=== PATIENT | female | born 1940 | race Caucasian/White ===

== ENCOUNTER 2018-05-09 14:13 | Inpatient (IN) | payer OTHER ==
[2018-05-09] MEDS ORDERED: IPRATROPIUM BROM 0.5MG/2.5ML ONE (15:04)
[2018-05-09] MEDS ORDERED: ALBUTEROL 2.5 MG/3 ML NEB SOL ONE (15:04)
--- NOTE | 2018-05-09 16:30 | RAD REPORT ---
EXAM DESCRIPTION: RAD - Chest Pa And Lat (2 Views) - 05/09/2018 4:06 pm CLINICAL HISTORY: Cough and congestion COMPARISON: August 2011 TECHNIQUE: PA and lateral views of the chest were obtained. FINDINGS: The lungs are fibrotic potentially masking early interstitial edema or infiltrate. Pleural effusion is present at the right base new from 2011. There is minimal posterior gutter diffusion on the left. Medial right base infiltrate or atelectasis present. Dialysis catheter is in place. Pacemak er is in place. Heart size is normal and central vasculature is within normal limits. No pneumotho rax. No acute bony finding noted. No aortic abnormality. IMPRESSION: Right base pleural effusion with infiltrate and/ or atelectasis. Minimal posterior gutter the fusion on the left. Chronic interstitial lung disease.
--- NOTE | 2018-05-09 17:10 | RAD REPORT ---
EXAM DESCRIPTION: CT - Thorax Wo Con - 05/09/2018 4:56 pm CLINICAL HISTORY: Persistent cough COMPARISON: Chest films same date, CT chest 2007 TECHNIQUE: Axial 5 mm thick images of the chest were obtained without IV contrast. All CT scans are performed using dose optimization technique as appropriate and may include automated exposure control or mA/KV adjustment according to patient size. FINDINGS: Right middle lobe airspace opacification is present suspicious for pneumonia rather than a telectasis. There is partial atelectasis of the right lower lobe. A few patchy airspace opacities are present in the superior aspect right lower lobe. Patient has a moderately large pleural effusion lay ering along the posterior aspect of the chest. No loculation. No left-sided pleural effusion. No pneu mothorax. No pleural based mass. No abnormal mediastinal or hilar masses or lymphadenopathy seen. No gross aortic or pulmonary artery finding suspected. Cardiomegaly is present with small pericardial effusion. No chest wall mass or abnormal axillary lymphadenopathy. IMPRESSION: Moderately large pleural effusion layering along the posterior aspect of the right hemit horax. No loculation. Partial atelectasis of the right lower lobe with minimal airspace opacification in the superior segme nt possibly pneumonia. Partial opacification of the right middle lobe favored to be pneumonia rather than atelectasis. Cardiomegaly with mild pericardial effusion.
[2018-05-09 17:33] LABS: Absolute Lymphocytes (CBC) 0.9 K/uL (0.7-4.9); Absolute Monocytes 0.4 K/uL (0.1-1.3); Absolute Neutrophil 3.9 K/uL (1.8-8.0); Basophils % 0.5 % (0-1.3); Eosinophils % 1.1 % (0-4.4); Lymphocytes % 17.3 % (15.3-44.8); MCH 32.4 pg (27.0-35.0); MCV 100.3 fL (80-100); MPV 9.6 fL (7.6-11.3); Monocytes % 7.8 % (3.3-12.3); RBC Red Blood Cell Count 3.69 M/uL (3.86-4.86)
[2018-05-09 17:36] LABS: Potassium 3.9 mmol/L (3.5-5.1)
--- NOTE | 2018-05-09 17:47 | ER ---
Nurse's Notes [facility] Name: Renée Souza Age: 78 yrs Sex: Female : 1940 Arrival Date: 05/09/2018 Time: 14:15 Bed 7 Private MD: Diagnosis: Lobar pneumonia, unspecified organism;Nosocomial condition Presentation: 05/09 14:37 Presenting complaint: Patient states: non-productive cough x 1 week, sent by [facility]ER. sv Transition of care: patient was not received from another setting of care. Onset of symptoms was May 02, 2018. Care prior to arrival: None. 14:37 Method Of Arrival: Wheelchair sv 14:37 Acuity: YUNIER 3 sv 14:50 Risk Assessment: Do you want to hurt yourself or someone else? Patient reports no tw2 desire to harm self or others. Initial Sepsis Screen: Does the patient meet any 2 criteria? No. Patient's initial sepsis screen is negative. Does the patient have a suspected source of infection? Yes: Productive cough/pneumonia. Historical: - Allergies: 14:39 Aspirin; sv 14:39 Morphine; sv 14:39 Keflex; sv 14:39 Codeine; sv 14:39 hydrocodone; sv 14:39 Levaquin; sv 14:39 PENICILLINS; sv - PMHx: 14:39 Diabetes - NIDDM; Atrial Fib; CKD; Peripheral venous insufficiency; Hypertension; sv Vascular dementia; CHF; Hyperlipidemia; - Immunization history:: Adult Immunizations up to date. - Social history:: Smoking status: Patient/guardian denies using tobacco. - Ebola Screening: : No symptoms or risks identified at this time. Screenin:50 Abuse screen: Denies threats or abuse. Nutritional screening: No deficits noted. tw2 Tuberculosis screening: No symptoms or risk factors identified. Fall Risk None identified. Assessment: 14:45 General: Appears in no apparent distress. Behavior is calm, cooperative, appropriate tw2 for age. Pain: Denies pain. Neuro: Level of Consciousness is awake, alert, obeys commands, Oriented to person, place, time, situation. Cardiovascular: Heart tones S1 S2 Patient's skin is warm and dry. Respiratory: Reports cough that is non-productive, Airway is patent Respiratory effort is even, unlabored, Respiratory pattern is regular, symmetrical, Breath sounds with wheezes bilaterally. GI: No signs and/or symptoms were reported involving the gastrointestinal system. Abdomen is round non-distended, Bowel sounds present X 4 quads. : No signs and/or symptoms were reported regarding the genitourinary system. EENT: No signs and/or symptoms were reported regarding the EENT system. Derm: No signs and/or symptoms reported regarding the dermatologic system. Musculoskeletal: Range of motion: intact in all extremities. 15:45 Reassessment: Patient appears in no apparent distress at this time. No changes from tw2 previously documented assessment. Patient and/or family updated on plan of care and expected duration. Pain level reassessed. 16:45 Reassessment: Patient appears in no apparent distress at this time. No changes from tw2 previously documented assessment. Patient and/or family updated on plan of care and expected duration. Pain level reassessed. 16:50 Reassessment: pts family request blood work, "while were here", provider notified. tw2 17:30 Reassessment: Patient appears in no apparent distress at this time. No changes from tw2 previously documented assessment. Patient and/or family updated on plan of care and expected duration. Pain level reassessed. 18:35 Reassessment: Patient appears in no apparent distress at this time. No changes from tw2 previously documented assessment. Patient and/or family updated on plan of care and expected duration. Pain level reassessed. 19:32 Reassessment: pt resting quietly A\\T\\O x 4, resp unlabored, awaiting room assignment bb family at bedside. 21:25 Reassessment: No changes from previously documented assessment. Patient and/or family tl1 updated on plan of care and expected duration. Pain level reassessed. report called and pt transferred to the floor. Vital Signs: 14:36 BP 148 / 64; Pulse 77; Resp 19; Temp 98.8; Pulse Ox 95% ; Weight 91.17 kg; Height 5 ft. sv 4 in. (162.56 cm); Pain 0/10; 15:45 BP 108 / 60; Pulse 77; Resp 17; Pulse Ox 100% on R/A; tw2 16:45 BP 162 / 64; Pulse 64; Resp 17; Pulse Ox 96% on 3 lpm NC; tw2 17:30 BP 179 / 68; Pulse 70; Resp 16; Pulse Ox 96% on 3 lpm NC; tw2 18:34 BP 169 / 60; Pulse 70; Resp 17; Pulse Ox 96% on 3 lpm NC; tw2 19:33 BP 142 / 63; Pulse 77; Resp 18 S; Pulse Ox 93% on 2 lpm NC; bb 20:53 BP 154 / 58; Pulse 67; Resp 20; Pulse Ox 96% on 2 lpm NC; tl1 14:36 Body Mass Index 34.50 (91.17 kg, 162.56 cm) sv ED Course: 14:15 Patient arrived in ED. mr 14:37 Triage completed. sv 14:40 Arm band placed on. sv 14:42 José Keating MD is Attending Physician. gs 14:46 Nuha Zepeda RN is Primary Nurse. tw2 14:46 Bed in low position. Call light in reach. Adult w/ patient. laboratory monitor on. Pulse tw2 ox on. NIBP on. 15:03 Flu Sent. tw2 16:04 X-ray completed. Patient tolerated procedure well. Patient moved back from radiology. ml 16:07 XRAY Chest Pa And Lat (2 Views) In Process Unspecified. EDMS 16:[address] via stretcher. vm2 16:56 CT completed. Patient tolerated procedure well. Patient moved back from CT. vm2 16:57 CT Chest Wo Con In Process Unspecified. EDMS 17:07 Report given to AVA Bartholomew at this time. tw2 17:15 Missed attempt(s): 22 gauge in right antecubital area. Bleeding controlled, band aid tw2 applied, catheter tip intact. Missed attempt(s): 22 gauge in right wrist. Bleeding controlled, band aid applied, catheter tip intact. 17:45 Rio Interiano MD is Hospitalizing Provider. gs 17:50 Inserted saline lock: 22 gauge in left wrist, using aseptic technique. jb1 21:15 Repositioned patient. Cleaned of incontinence. tl1 21:26 Warm blanket given. tl1 21:27 No provider procedures requiring assistance completed. Patient admitted, IV remains in tl1 place. Administered Medications: 15:03 Drug: Albuterol 2.5 mg Route: Inhalation; tw2 16:00 Follow up: Response: No adverse reaction tw2 15:03 Drug: AtroVENT Aerosol 0.5 mg Route: Inhalation; tw2 16:00 Follow up: Response: No adverse reaction tw2 18:33 Drug: PriMAXin 500 mg Route: IV; Rate: bolus; Site: left hand; tw2 19:31 Follow up: IV Status: Completed infusion; IV Intake: 250ml bb Intake: 19:31 IV: 250ml; Total: 250ml. bb Outcome: 17:46 Decision to Hospitalize by Provider. gs 21:11 Admitted to Tele accompanied by tech, via stretcher, with oxygen, with chart, Report tl1 called to Saundra ESCALANTE 21:27 Condition: stable tl1 21:27 Instructed on the need for admit. 21:29 Patient left the ED. tl1 Signatures: Dispatcher [employer] EDMS Fran Jimenes jbAngelique Goldberg RN RN Marquita Baig Brenda RN RN Glo Berger Tonya RN AVA tl1 Nuha Zepeda RN RN tw2 Amanda Marin 2 José Keating MD MD Corrections: (The following items were deleted from the chart) 14:40 14:36 91.17 kg; Height 5 ft. 4 in.; BMI: 34.5; sv sv 18:35 16:45 BP 110 / 073; Pulse 87bpm; Resp 17bpm; Pulse Ox 100% RA; tw2 tw2
--- NOTE | 2018-05-09 17:47 | EDPHYS ---
Physician Documentation [facility] Name: Renée Souza Age: 78 yrs Sex: Female : 1940 Arrival Date: 05/09/2018 Time: 14:15 Bed 7 Private MD: ED Physician José Keating HPI: 05/09 18:37 This 78 yrs old Female presents to ER via Wheelchair with complaints of Cough.gs 18:37 The patient or guardian reports cough, that is intermittent. Onset: The gs symptoms/episode began/occurred 3 day(s) ago. Severity of symptoms: At their worst the symptoms were moderate, in the emergency department the symptoms are unchanged. Modifying factors: the symptoms are aggravated by nothing. Associated signs and symptoms: Pertinent positives: fever. The patient has not experienced similar symptoms in the past. The patient has been recently seen by a physician: the patient's primary care provider. Historical: - Allergies: 14:39 Aspirin; sv 14:39 Morphine; sv 14:39 Keflex; sv 14:39 Codeine; sv 14:39 hydrocodone; sv 14:39 Levaquin; sv 14:39 PENICILLINS; sv - PMHx: 14:39 Diabetes - NIDDM; Atrial Fib; CKD; Peripheral venous insufficiency; Hypertension; sv Vascular dementia; CHF; Hyperlipidemia; - Immunization history:: Adult Immunizations up to date. - Social history:: Smoking status: Patient/guardian denies using tobacco. - Ebola Screening: : No symptoms or risks identified at this time. ROS: 18:37 All other systems are negative. gs Exam: 18:37 Head/Face: Normocephalic, atraumatic. Eyes: Pupils equal round and reactive to light, gs extra-ocular motions intact. Lids and lashes normal. Conjunctiva and sclera are non-icteric and not injected. Cornea within normal limits. Periorbital areas with no swelling, redness, or edema. ENT: Nares patent. No nasal discharge, no septal abnormalities noted. Tympanic membranes are normal and external auditory canals are clear. Oropharynx with no redness, swelling, or masses, exudates, or evidence of obstruction, uvula midline. Mucous membranes moist. Neck: Trachea midline, no thyromegaly or masses palpated, and no cervical lymphadenopathy. Supple, full range of motion without nuchal rigidity, or vertebral point tenderness. No Meningismus. Chest/axilla: Normal chest wall appearance and motion. Nontender with no deformity. No lesions are appreciated. Cardiovascular: Regular rate and rhythm with a normal S1 and S2. No gallops, murmurs, or rubs. Normal PMI, no JVD. No pulse deficits. Abdomen/GI: Soft, non-tender, with normal bowel sounds. No distension or tympany. No guarding or rebound. No evidence of tenderness throughout. Back: No spinal tenderness. No costovertebral tenderness. Full range of motion. Skin: Warm, dry with normal turgor. Normal color with no rashes, no lesions, and no evidence of cellulitis. MS/ Extremity: Pulses equal, no cyanosis. Neurovascular intact. Full, normal range of motion. Neuro: Awake and alert, GCS 15, oriented to person, place, time, and situation. Cranial nerves II-XII grossly intact. Motor strength 5/5 in all extremities. Sensory grossly intact. Cerebellar exam normal. Normal gait. 18:37 Constitutional: The patient appears in no acute distress, alert, awake. 18:37 Respiratory: the patient does not display signs of respiratory distress, Respirations: normal, Breath sounds: rhonchi, that are moderate, are located in both bases. Vital Signs: 14:36 BP 148 / 64; Pulse 77; Resp 19; Temp 98.8; Pulse Ox 95% ; Weight 91.17 kg; Height 5 ft. sv 4 in. (162.56 cm); Pain 0/10; 15:45 BP 108 / 60; Pulse 77; Resp 17; Pulse Ox 100% on R/A; tw2 16:45 BP 162 / 64; Pulse 64; Resp 17; Pulse Ox 96% on 3 lpm NC; tw2 17:30 BP 179 / 68; Pulse 70; Resp 16; Pulse Ox 96% on 3 lpm NC; tw2 18:34 BP 169 / 60; Pulse 70; Resp 17; Pulse Ox 96% on 3 lpm NC; tw2 19:33 BP 142 / 63; Pulse 77; Resp 18 S; Pulse Ox 93% on 2 lpm NC; bb 20:53 BP 154 / 58; Pulse 67; Resp 20; Pulse Ox 96% on 2 lpm NC; tl1 14:36 Body Mass Index 34.50 (91.17 kg, 162.56 cm) sv MDM: 14:55 Patient medically screened. gs 18:37 Differential Diagnosis: Bronchitis Influenza Upper Respiratory Infection Pneumonia. Data reviewed: vital signs, nurses notes. Response to treatment: the patient's symptoms have mildly improved after treatment, and as a result, I will admit patient. 05/09 14:51 Order name: Flu; Complete Time: 15:34 05/09 16:55 Order name: CBC with Diff; Complete Time: 17:38 05/09 16:55 Order name: Basic Metabolic Panel; Complete Time: 17:38 05/09 16:55 Order name: Blood Culture* 05/09 20:18 Order name: CBC with Automated Diff EDMS 05/09 20:18 Order name: CBC with Automated Diff EDMS 05/09 14:51 Order name: XRAY Chest Pa And Lat (2 Views); Complete Time: 16:41 05/09 16:42 Order name: CT Chest Wo Con; Complete Time: 17:24 05/09 20:18 Order name: CBC with Automated Diff EDMS 05/09 20:18 Order name: CBC with Automated Diff EDMS 05/09 20:18 Order name: Comprehensive Metabolic Panel EDMS 05/09 20:19 Order name: Comprehensive Metabolic Panel EDMS 05/09 20:19 Order name: Comprehensive Metabolic Panel EDMS 05/09 20:19 Order name: Comprehensive Metabolic Panel EDMS 05/09 20:18 Order name: Renal EDMS Administered Medications: 15:03 Drug: Albuterol 2.5 mg Route: Inhalation; tw2 16:00 Follow up: Response: No adverse reaction tw2 15:03 Drug: AtroVENT Aerosol 0.5 mg Route: Inhalation; tw2 16:00 Follow up: Response: No adverse reaction tw2 18:33 Drug: PriMAXin 500 mg Route: IV; Rate: bolus; Site: left hand; tw2 19:31 Follow up: IV Status: Completed infusion; IV Intake: 250ml bb Disposition: 05/09/18 17:46 Hospitalization ordered by Rio Interiano for Inpatient Admission. Preliminary diagnosis are Lobar pneumonia, unspecified organism, Nosocomial condition. - Bed requested for Telemetry/MedSurg (Inpatient). - Status is Inpatient Admission. tl1 - Condition is Stable. - Problem is new. - Symptoms are unchanged. UTI on Admission? No Critical care time excluding procedures: 18:37 Critical care time: Bedside Care: 10 minutes, Consultation: 10 minutes, Family gs Intervention: 10 minutes. Total time: 30 minutes Signatures: Dispatcher [employer] Angelique Marquez, RN AVA Jolly Dodson RN RN tl1 Danna Boone RN RN Nuha Zepeda RN RN tw2 José Keating MD MD [place] Marcos RN bb Corrections: (The following items were deleted from the chart) 20:24 17:46 Hospitalization Ordered by Rio Interiano MD for Inpatient Admission. Preliminary cg diagnosis is Lobar pneumonia, unspecified organism; Nosocomial condition. Bed requested for Telemetry/MedSurg (Inpatient). Status is Inpatient Admission. Condition is Stable. Problem is new. Symptoms are unchanged. UTI on Admission? No. gs 21:29 20:24 05/09/2018 17:46 Hospitalization Ordered by Rio Interiano MD for Inpatient tl1 Admission. Preliminary diagnosis is Lobar pneumonia, unspecified organism; Nosocomial condition. Bed requested for Telemetry/MedSurg (Inpatient). Status is Inpatient Admission. Condition is Stable. Problem is new. Symptoms are unchanged. UTI on Admission? No. cg
[2018-05-09] MEDS ORDERED: Meropenem 1,000 MG in NA CHLORIDE 0.9% 100 ML IV ONE (19:00)
[2018-05-09] MEDS ORDERED: ONDANSETRON 4 MG/2 ML VIAL IV PRN (20:16)
[2018-05-09] MEDS ORDERED: ACETAMINOPHEN 500 MG TAB PO PRN (20:16)
[2018-05-09 22:19] VITALS: BMI 29.7
[2018-05-09 23:44] LABS: Urine Appearance CLOUDY; Urine Bilirubin NEGATIVE (NEG); Urine Blood 1+ (NEG); Urine Color YELLOW; Urine Glucose 1+ (NEG); Urine Protein 3+ (NEG); Urine Specific Gravity 1.025 (1.005-1.030); Urine Urobilinogen 0.2 mg/dL (0.2-1.0)
[2018-05-09 23:47] LABS: Urine Microscopic Reflex ORDER UMIC
[2018-05-10] LABS: Urine Bacteria >50 /HPF (<20)
[2018-05-10 00:01] LABS: Urine Culture Reflex Order REFLEXED
[2018-05-10] MEDS ORDERED: GLIMEPIRIDE 2 MG TABLET PO PRN (00:38)
[2018-05-10] MEDS ORDERED: HYDRALAZINE HCL 10 MG TABLET PO ONE (01:20)
[2018-05-10 06:42] LABS: Absolute Lymphocytes (CBC) 0.9 K/uL (0.7-4.9); Absolute Monocytes 0.4 K/uL (0.1-1.3); Basophils % 0.4 % (0-1.3); Eosinophils % 1.2 % (0-4.4); Hematocrit 34.7 % (36.0-45.0); Lymphocytes % 16.6 % (15.3-44.8); MCH 32.5 pg (27.0-35.0); MPV 9.5 fL (7.6-11.3); Monocytes % 8.1 % (3.3-12.3)
[2018-05-10 06:53] LABS: Protime INR 1.07
[2018-05-10 07:01] LABS: Bilirubin Total 0.3 mg/dL (0.2-1.0); Magnesium 2.4 mg/dL (1.8-2.4); Phosphorus 5.4 mg/dL (2.5-4.9); Potassium 4.6 mmol/L (3.5-5.1); Protein, Total 6.9 g/dL (6.4-8.2)
[2018-05-10] MEDS ORDERED: INFLUENZA VACCINE (for 3y+) 0.5 ML DOSE IMVAC ONE (08:00)
[2018-05-10] MEDS ORDERED: PNEUMOCOCCAL VACCINE 0.5 ML IMVAC ONE (08:00)
[2018-05-10] MEDS ORDERED: LISINOPRIL 20 MG TAB PO SCH (09:00)
[2018-05-10] MEDS ORDERED: LISINOPRIL 10 MG TAB PO SCH (09:00)
--- NOTE | 2018-05-10 09:19 | P.HP ---
Certification for Inpatient Patient admitted to: Inpatient With expected LOS: >2 Midnights Patient will require the following post-hospital care: None Practitioner: I am a practitioner with admitting privileges, knowledge of patient current condition, hospital course, and medical plan of care. Services: Services provided to patient in accordance with Admission requirements found in Title 42 Section 412.3 of the Code of Federal Regulations Patient History Date of Service: 05/09/18 Reason for admission: Pneumonia/shortness of breath History of Present Illness: Patient is a 78-year-old female came into the hospital with coughing congestion. Patient's symptoms been going on for the last few days and she is gradually getting worse. Patient had fever shakes and chills. Patient came into the hospital for further workup. In the emergency room her workup revealed she had a large right lobar pneumonia along with large pleural effusion. Patient will be admitted to the hospital for further workup. Allergies Penicillins Adverse Reaction (Intermediate, Verified 09/01/11 18:18) Hives aspirin Adverse Reaction (Mild, Verified 09/01/11 18:20) Itching codeine [Codeine] Adverse Reaction (Mild, Verified 09/01/11 18:20) Nausea/Vomiting hydrocodone [Hydrocodone] Adverse Reaction (Mild, Verified 09/01/11 18:19) Rash levofloxacin [From Levaquin] Adverse Reaction (Mild, Verified 09/01/11 18:19) Itching Home Medications: Cholecalciferol (Vitamin D3) [Vitamin D] 5,000 unit PO SEECOM 09/02/11 Glimepiride [Amaryl*] 5 mg PO BIDP PRN 09/02/11 Insulin 70/30 NPH/Reg Human [Novolin 70/30*] 15 unit SQ BREAKFAST 09/02/11 Insulin 70/30 NPH/Reg Human [Novolin 70/30*] 15 unit SQ SUPPER 09/02/11 Lisinopril 10 mg PO DAILY 09/02/11 Simvastatin 20 mg PO DAILY 09/02/11 Warfarin Sodium [Coumadin] 10 mg PO SEECOM 09/02/11 Warfarin Sodium [Coumadin] 11 mg PO SEECOM 09/02/11 Hydralazine HCl 10 mg PO TID #0 tablet 09/03/11 Lisinopril 20 mg PO BID #0 tablet 09/03/11 - Past Medical/Surgical History Has patient received pneumonia vaccine in the past: No Diabetic: Yes -: Type 2 diabetes -: Atrial fibrillation -: Chronic Kidney Disease -: Hemodialysis TThS -: Peripheral Venous Insufficiency -: HTN -: Vascular Dementia -: CHF -: Hyperlipidemia -: Fistula - Family History Father Family History: Reviewed- Non-Contributory - Social History Smoking Status: Former smoker Alcohol use: No CD- Drugs: No Caffeine use: Yes Place of Residence: Home Review of Systems 10-point ROS is otherwise unremarkable Physical Examination - Vital Signs Temperature: 98.2 F Blood Pressure: 167/85 Pulse: 87 Respirations: 20 Pulse Ox (%): 91 - Physical Exam General: Alert, In no apparent distress, Oriented x3 HEENT: Atraumatic, PERRLA, Mucous membr. moist/pink, EOMI, Sclerae nonicteric Neck: Supple, 2+ carotid pulse no bruit, No LAD, Without JVD or thyroid abnormality Respiratory: Diminished, Crackles/rales, Rhonchi/gurgles Cardiovascular: Regular rate/rhythm, Normal S1 S2, No murmurs Gastrointestinal: Normal bowel sounds, Soft and benign, Non-distended, No tenderness Musculoskeletal: No clubbing, No swelling, No tenderness Integumentary: No rashes Neurological: Normal speech, Normal tone, Sensation intact, Cranial nerves 3-12 intact, Normal affect, Abnormal gait, Abnormal strength Lymphatics: No axilla or inguinal lymphadenopathy - Studies Laboratory Data (last 24 hrs) 05/09/18 17:10: Sodium 139, Potassium 3.9, BUN 22 H, Creatinine 3.20 H, Glucose 190 H 05/09/18 17:10: WBC 5.3, Hgb 12.0, Hct 37.0, Plt Count 196 Microbiology Data (last 24 hrs): 05/09/18 15:00 Nasopharnyx Influenza Type A Antigen Screen - Final 05/09/18 15:00 Nasopharnyx Influenza Type B Antigen Screen - Final Assessment & Plan - Problems (Diagnosis) (1) Pleural effusion, right Current Visit: Yes Status: Acute (2) Pneumonia Current Visit: Yes Status: Acute (3) CHF (congestive heart failure) Current Visit: Yes Status: Acute (4) End stage renal disease Current Visit: Yes Status: Acute (5) PNA (pneumonia) Current Visit: Yes Status: Acute (6) UTI (urinary tract infection) Current Visit: Yes Status: Acute - Plan 1. Continue with IV antibiotics 2. Awaiting culture results 3. Repeat chest x-ray 4. Will proceed with CT scan of the chest 5. Nephrology consultation/interventional radiology/ultrasound-guided thoracentesis 6. Continue with nebs as needed 7. O2 per protocol 8. Continue with gentle hydration 9. Repeat labs including CBC and renal function in a.m. 10. GI and DVT prophylaxis Discharge Plan: Home Plan to discharge in: Greater than 2 days - Advance Directives Does patient have a Living Will: No Does patient have a Durable POA for Healthcare: No - Code Status/Comfort Care Code Status Assessed: Yes Code Status: Full Code Critical Care: No Time Spent Managing PTS Care (In Minutes): 50
[2018-05-10] MEDS: INSULIN 70/30 100 UNITS/ML SQ SCH ×2 (09:28→16:53)
[2018-05-10] MEDS: HYDRALAZINE HCL 10 MG TABLET PO SCH ×3 (09:29→21:14)
--- NOTE | 2018-05-10 10:56 | RAD REPORT ---
EXAM DESCRIPTION: US - Renal Ultrasound-Complete - 05/10/2018 10:35 am CLINICAL HISTORY: . Acute renal insufficiency and chronic renal disease COMPARISON: 2009 FINDINGS: The right kidney measures cm with a normal echotexture. A 3 centimeters cyst is present. The left kidney measures 9 cm with a normal echotexture. Hydronephrosis is not seen. The bladder was not visualized IMPRESSION: 3 centimeter right renal cyst
[2018-05-10] MEDS ORDERED: NA CHLORIDE 0.9% 1,000 ML IV SCH (11:00)
[2018-05-10 11:53] LABS: Folic Acid, (Folate) 13.1 ng/mL (3.1-17.5); Potassium 4.8 mmol/L (3.5-5.1)
--- NOTE | 2018-05-10 13:47 | RAD REPORT ---
EXAM DESCRIPTION: US - Chest - 05/10/2018 1:13 pm CLINICAL HISTORY: Right pleural effusion COMPARISON: CT chest May 09 FINDINGS: Ultrasound of the chest was performed in anticipation of a ultrasound-guided thoracentesis . Preliminary imaging showed a large right-sided pleural effusion. At the time of the preliminary scanning, the patient was uncertain about the procedure to be performe d. Patient is not rosanne consent and wanted to discuss the procedure and findings with the referring lucian kent. IMPRESSION: Large right pleural effusion is identified at sonography. No thoracentesis was performed. Patient would not rosanne consent until she was able to talk further wi th the referring physician.
[2018-05-10 14:58] LABS: Protein, Total 6.9 g/dL (6.4-8.2); Thyroid Stimulating Hormone 2.9 uIU/mL (0.360-3.740)
--- NOTE | 2018-05-10 15:48 | ECHO ---
HEIGHT: 5 ft 5 in WEIGHT: 179 lb 1.6 oz DATE OF STUDY: 05/10/[address]: Lianne Aponte MD 2-DIMENSIONAL: YES M.MODE: YES DOPPLER: YES COLOR FLOW: YES TDS: NO PORTABLE: NO DEFINITY: NO BUBBLE STUDY: NO DIAGNOSIS: CONGESTIVE HEART FAILURE CARDIAC HISTORY: CATHERIZATION: YES SURGERY: NO PROSTHETIC VALVE: NO PACEMAKER: YES MEASUREMENTS (cm) DIASTOLIC (NORMALS) SYSTOLIC (NORMALS) IVSd 1.3 (0.6-1.2) LA Diam 4.6 (1.9-4.0) LVEF 67% LVIDd 5.2 (3.5-5.7) LVIDs 3.3 (2.0-3.5) %FS 37% LVPWd 1.3 (0.6-1.2) Ao Diam 2.6 (2.0-3.7) 2 DIMENSIONAL ASSESSMENT: RIGHT ATRIUM: NORMAL LEFT ATRIUM: DILATED RIGHT VENTRICLE: PACEMAKER LEFT VENTRICLE: LEFT VENTRICULAR HYPERTROPHY TRICUSPID VALVE: NORMAL MITRAL VALVE: MITRAL ANNULAR CALCIFICATION PULMONIC VALVE: NORMAL AORTIC VALVE: STENOSIS PERICARDIAL EFFUSION: NONE AORTIC ROOT: NORMAL LEFT VENTRICULAR WALL MOTION: NORMAL DOPPLER/COLOR FLOW: MILD TRICUSPID REGURGITATION. ESTIMATED RIGHT VENTRICULAR SYSTOLIC PRESSURE 50-55mmHg. MODERATE PULMONARY HYPERTENSION. MODERATE AORTIC STENOSIS. PEAK/ MEAN GRADIENT 39/22. ESTIMATE AORTIC VALVE AREA 1.4 CENTIMETERS SQUARED. COMMENTS: NORMAL LEFT VENTRICULAR EJECTION FRACTION. DILATED LEFT ATRIUM. LEFT VENTRICULAR HYPERTROPHY. MITRAL ANNULAR CALCIFICATION. MODERATE AORTIC STENOSIS. MILD TRICUSPID REGURGITATION. MODERATE PULMONARY HYPERTENSION. PACEMAKER CATHETER IN RIGHT VENTRICLE. TECHNOLOGIST: Galilea RITCHIE
--- NOTE | 2018-05-10 16:33 | CON ---
Date of Consultation: 05/10/2018 NEPHROLOGY CONSULTATION Additional Consulting Physician: Dr. Interiano. Reason For Consultation: Elevated BUN, creatinine, hypertension, fluid management. History Of Present Illness: This is a pleasant 78-year-old female with significant past medical hist ory of diabetes complicated with neuropathy, hypertension, hyperlipidemia, chronic kidney disease, ba tariq creatinine back in October 2017 4.3, GFR of 10, hypertension, hyperlipidemia, the patient came to the hospital complaining from cough, shortness of breath, started all of a sudden, hyperlipidemia, th e patient came with shortness of breath, cough and started all of the sudden exacerbating, for that r velma brought to the hospital. Workup showed that she has pneumonia with the pleural effusion and el evation in the BUN and creatinine. For that reason, we have been consulted. Upon questioning the chery martines, according to her, she had been taking ibuprofen only once a week. She is not aware about any kidney problem, even though reviewing the record for the patient showing that elevation in BUN and cr eatinine. She has never seen a surg rn before. Past Medical History: Include: 1.Hypertension. 2.Diabetes. 3.AFib. 4.Again the patient has dementia, her history not reliable. Allergies: TO PENICILLIN, ASPIRIN, CODEINE, HYDROCODONE, LEVAQUIN. Home Medications: Include cholecalciferol, glimepiride, lisinopril, Coumadin, hydralazine, and lisin opril. Family History: Positive for diabetes and hypertension. Social History: Ex-smoker. Denied alcohol. Denied drug abuse. Review of Systems: Head and Neck: No red eye. No ear pain. GI: No nausea. No vomiting. : No polyuria. No dysuria. No hematuria. FLUID DESIGNER: No vaginal discharge. Respiratory: Has shortness of breath. Has chest tightness. Endocrine: No polydipsia. Skin: No rash. Neuro: Has neuropathy. Musculoskeletal: Has low back pain. Physical Examination: Vital Signs: When I saw the patient, blood pressure of 167/85, pulse of 87. Chest: Crackles, bilateral base. Heart: S1, S2. Systolic murmur. Abdomen: Soft, nontender. Extremities: Trace edema. Neuro: Alert, nonfocal. Laboratory Data: Sodium 144, potassium 4.6, bicarb 24, BUN 34, creatinine 4.3, GFR of 10, calcium of 8, phosphor 5.4, magnesium 2.4. WBC 5.4, H and H 11.1/34.7, and platelet 165. Assessment And Plan: 1.Chronic kidney disease, stage 5, progression to end stage. The patient will need to initiate on d ialysis. We will discuss with the patient and family regarding the dialysis and we will follow up. 2.Hypertension, controlled, optimal. We will utilize the blood pressure for more ultrafiltration an d diuresis. 3.Anemia of chronic kidney disease, stable on the presence of renal failure. Light chain disease ne eds to be ruled out. 4.I am going to go ahead and send for anemia workup. 5.Diabetes as by primary. 6.Pneumonia. Continue current antibiotic. We will adjust the dosage. We will follow up with the lucian cardona. 7.Hypertension, controlled, not optimal. We will follow up blood pressure after diuresis and we bailey l monitor. INGA Voice ID: [id number] Report ID: [id number]
--- NOTE | 2018-05-10 16:42 | P.PN ---
Subjective Date of Service: 05/10/18 Chief Complaint: Pneumonia/shortness of breath Patient seen and examined at bedside. No family at bedside. Chart reviewed and case discussed with nursing staff. Reports improved breathing. Only complaint is she is coughing up sputum, otherwise feeling better. Review of Systems As noted Physical Examination - Vital Signs Temperature: 98.5 F Blood Pressure: 170/73 Pulse: 81 Respirations: 20 Pulse Ox (%): 93 - Physical Exam General: Alert, In no apparent distress, Oriented x3 HEENT: Atraumatic, PERRLA, EOMI Neck: Supple, JVD not distended Respiratory: Dull, Expiratory wheezes Cardiovascular: Regular rate/rhythm, Normal S1 S2 Gastrointestinal: Normal bowel sounds, No tenderness Musculoskeletal: No tenderness Integumentary: No rashes Neurological: Normal speech, Normal tone, Normal affect - Studies Laboratory Data (last 24 hrs) 05/10/18 05:31: PT 12.6 H, INR 1.07 05/10/18 05:31: Sodium 144, Potassium 4.6, BUN 34 H, Creatinine 4.30 H D, Glucose 204 H, Phosphorus 5.4 H, Magnesium 2.4, Total Bilirubin 0.3, AST 28, ALT 29, Alkaline Phosphatase 108 05/10/18 05:31: WBC 5.4, Hgb 11.1 L, Hct 34.7 L, Plt Count 165 05/10/18 05:00: Phosphorus Cancelled, Magnesium Cancelled 05/09/18 17:10: Sodium 139, Potassium 3.9, BUN 22 H, Creatinine 3.20 H, Glucose 190 H 05/09/18 17:10: WBC 5.3, Hgb 12.0, Hct 37.0, Plt Count 196 Microbiology Data (last 24 hrs): 05/09/18 15:00 Nasopharnyx Influenza Type A Antigen Screen - Final 05/09/18 15:00 Nasopharnyx Influenza Type B Antigen Screen - Final Assessment And Plan - Plan This is a 78-year-old female with: Right pleural effusion Patient with a large right pleural effusion on CT scan. Ultrasound-guided thoracocentesis ordered, patient refused. I did speak to the patient, she is not really sure why she refused but she still refuses. No family at bedside to discuss further. We will see if family comes by tomorrow to speak with them. Pneumonia, right lower lobe Continue IV antibiotics Continue nebulizing treatments as needed O2 per protocol Congestive heart failure, diastolic, chronic Echocardiogram was done, ejection fraction of 67% with dilated left atria. Will continue home medications, Lasix as needed. End-stage renal disease Patient of Dr. cox, dialysis schedule on Tuesday, , Tuesday. Nephrology consulted, pending dialysis tomorrow per nephrology. Diabetes mellitus, type 2, insulin dependent. Continue Accu-Cheks and low-dose correction scale. Will adjust as needed. Atrial fibrillation. In sinus rhythm at this time. Continue home medications Pacemaker in place. Stable. Denies any palpitations, chest pain Vascular dementia Hyperlipidemia Continue home statin Hypertension Elevated, we started her home hydralazine. Lisinopril held secondary to renal function. Will continue to monitor, will order IV hydralazine if needed. DVT prophylaxis: Lovenox GI prophylaxis: Protonix Diet: Renal Disposition: Pending symptomatic improvement. Continue IV antibiotics. Physician Review: Patient Assessed, Agree with Above Assessment and Plan Time Spent Managing PTS Care (In Minutes): 35
[2018-05-10] MEDS: WARFARIN SODIUM 5 MG TAB PO SCH (16:53)
--- NOTE | 2018-05-10 20:59 | P.CNS ---
Date of Consult: 05/10/18 Reason for Consult: ESRD Requesting Physician: Rio Interiano Chief Complaint: Pneumonia/shortness of breath History of Present Illness: 78 yo WF CKD, HTN presented to the ER with several days of moderate, progressive malaise with associated cough and congestion. +Fatigue and weakness. No modifying fx. Known dialysis patient. Allergies Penicillins Adverse Reaction (Intermediate, Verified 09/01/11 18:18) Hives aspirin Adverse Reaction (Mild, Verified 09/01/11 18:20) Itching codeine [Codeine] Adverse Reaction (Mild, Verified 09/01/11 18:20) Nausea/Vomiting hydrocodone [Hydrocodone] Adverse Reaction (Mild, Verified 09/01/11 18:19) Rash levofloxacin [From Levaquin] Adverse Reaction (Mild, Verified 09/01/11 18:19) Itching Home medications list reviewed: Yes Home Medications: Cholecalciferol (Vitamin D3) [Vitamin D] 5,000 unit PO SEECOM 09/02/11 Glimepiride [Amaryl*] 5 mg PO BIDP PRN 09/02/11 Insulin 70/30 NPH/Reg Human [Novolin 70/30*] 15 unit SQ BREAKFAST 09/02/11 Insulin 70/30 NPH/Reg Human [Novolin 70/30*] 15 unit SQ SUPPER 09/02/11 Lisinopril 10 mg PO DAILY 09/02/11 Simvastatin 20 mg PO DAILY 09/02/11 Warfarin Sodium [Coumadin] 10 mg PO SEECOM 09/02/11 Warfarin Sodium [Coumadin] 11 mg PO SEECOM 09/02/11 Hydralazine HCl 10 mg PO TID #0 tablet 09/03/11 Lisinopril 20 mg PO BID #0 tablet 09/03/11 - Past Medical/Surgical History Diabetic: Yes -: Type 2 diabetes -: Atrial fibrillation -: Chronic Kidney Disease -: Hemodialysis TThS -: Peripheral Venous Insufficiency -: HTN -: Vascular Dementia -: CHF -: Hyperlipidemia -: Fistula - Family History Father Family History: Reviewed- Non-Contributory - Social History Smoking Status: Former smoker Alcohol use: No CD- Drugs: No Caffeine use: Yes Place of Residence: Home Review of Systems 10-point ROS is otherwise unremarkable General: Weakness, Malaise Respiratory: SOB with Excertion, Wheezing Cardiovascular: Edema Neurological: Weakness, Confusion Physical Examination Temp Pulse Resp BP Pulse Ox 98.5 F 81 20 170/73 H 93 05/10/18 16:53 05/10/18 16:53 05/10/18 16:53 05/10/18 16:53 05/10/18 16:53 General: Cooperative, Mild distress HEENT: Normocephalic Neck: Supple, JVD distended Respiratory: Expiratory wheezes Cardiovascular: Regular rate/rhythm, Edema Gastrointestinal: Soft and benign, Non-distended Musculoskeletal: No clubbing, No contractures Integumentary: No rashes, No cyanosis Neurological: Normal speech Laboratory Data (last 24 hrs) 05/10/18 05:31: PT 12.6 H, INR 1.07 05/10/18 05:31: Sodium 144, Potassium 4.6, BUN 34 H, Creatinine 4.30 H D, Glucose 204 H, Phosphorus 5.4 H, Magnesium 2.4, Total Bilirubin 0.3, AST 28, ALT 29, Alkaline Phosphatase 108 05/10/18 05:31: WBC 5.4, Hgb 11.1 L, Hct 34.7 L, Plt Count 165 05/10/18 05:00: Phosphorus Cancelled, Magnesium Cancelled Imagings Data: EXAM DESCRIPTION: CT - Thorax Wo Con - 05/09/2018 4:56 pm CLINICAL HISTORY: Persistent cough COMPARISON: Chest films same date, CT chest 2007 TECHNIQUE: Axial 5 mm thick images of the chest were obtained without IV contrast. All CT scans are performed using dose optimization technique as appropriate and may include automated exposure control or mA/KV adjustment according to patient size FINDINGS: Right middle lobe airspace opacification is present suspicious for pneumonia rather than atelectasis. There is partial atelectasis of the right lower lobe. A few patchy airspace opacities are present in the superior aspect right lower lobe. Patient has a moderately large pleural effusion layering along the posterior aspect of the chest. No loculation. No left-sided pleural effusion. No pneumothorax. No pleural based mass. No abnormal mediastinal or hilar masses or lymphadenopathy seen. No gross aortic or pulmonary artery finding suspected. Cardiomegaly is present with small pericardial effusion. No chest wall mass or abnormal axillary lymphadenopathy. IMPRESSION: Moderately large pleural effusion layering along the posterior aspect of the right hemithorax. No loculation. Partial atelectasis of the right lower lobe with minimal airspace opacification in the superior segment possibly pneumonia. Partial opacification of the right middle lobe favored to be pneumonia rather than atelectasis. Cardiomegaly with mild pericardial effusion. Conclusions/Impression: A/ ESRD on HD. DM II with CKD. HTN with CKD/ CHF. Diastolic CHF, chronic. Pulmonary HTN. AVS. Anemia in CKD. PER/ Secondary HyperPTH. Vascular Dementia. P/ Continue current POC and Medications. Agree with abx. Follow up cultures. Follow up with pleural fluid studies. Arrange for acute dialysis. Restart home medications as indicated. No NSAIDs. AM labs. Daily weight. Thank you kindly for the consultation.
[2018-05-10] MEDS ORDERED: MANNITOL 25% 12.5 GM/50 ML VIAL IV PRN (21:10)
[2018-05-10] MEDS ORDERED: HEPARIN 10,000 UNIT/10 ML VIAL IV PRN (21:10)
[2018-05-10] MEDS ORDERED: NA CHLORIDE 0.9% 1,000 ML IV PRN (21:10)
[2018-05-10] MEDS: ATORVASTATIN 10 MG TAB PO SCH (21:14)
[2018-05-10] MEDS ORDERED: EPOETIN ALFA 10,000 UNIT/ML VIAL IV SCH (21:15)
[2018-05-10] MEDS: DOXYCYCLINE 100 MG in NA CHLORIDE 0.9% 100 ML IVPB SCH (21:15)
[2018-05-10] MEDS ORDERED: ALBUMIN HUMAN 25% 50 ML IV SCH (22:00)
[2018-05-11 06:08] LABS: Absolute Lymphocytes (CBC) 1.4 K/uL (0.7-4.9); Absolute Monocytes 0.6 K/uL (0.1-1.3); Absolute Neutrophil 4.3 K/uL (1.8-8.0); Basophils % 0.6 % (0-1.3); Eosinophils % 1.1 % (0-4.4); Hematocrit 32.2 % (36.0-45.0); Lymphocytes % 21.9 % (15.3-44.8); MCH 32.9 pg (27.0-35.0); MCV 101.5 fL (80-100); MPV 9.5 fL (7.6-11.3); Monocytes % 8.8 % (3.3-12.3); RBC Red Blood Cell Count 3.17 M/uL (3.86-4.86)
[2018-05-11 07:08] LABS: Albumin 2.8 g/dL (3.4-5.0); Bilirubin Total 0.3 mg/dL (0.2-1.0); Ferritin 853.5 ng/mL (8-388); Folic Acid, (Folate) 13.6 ng/mL (3.1-17.5); Phosphorus 6.9 mg/dL (2.5-4.9); Potassium 4.9 mmol/L (3.5-5.1); Protein, Total 6.7 g/dL (6.4-8.2); Uric Acid 4.9 mg/dL (2.6-6.0)
[2018-05-11 08:36] LABS: Rheumatoid Factor NEG (NEG)
[2018-05-11] MEDS: HYDRALAZINE HCL 10 MG TABLET PO SCH ×3 (08:43→20:45)
[2018-05-11] MEDS: INSULIN 70/30 100 UNITS/ML SQ SCH ×2 (08:43→17:29)
[2018-05-11] MEDS: DOXYCYCLINE 100 MG in NA CHLORIDE 0.9% 100 ML IVPB SCH ×2 (09:08→20:45)
--- NOTE | 2018-05-11 12:10 | P.PN ---
Subjective Date of Service: 05/11/18 Chief Complaint: Pneumonia/shortness of breath Subjective: No new changes, No C/O voiced Patient seen and examined at bedside. Son at bedside. Chart reviewed and case discussed with nursing staff. She is still complaining of having breathing trouble. Review of Systems As noted Physical Examination - Vital Signs Temperature: 97.9 F Blood Pressure: 174/88 Pulse: 84 Respirations: 20 Pulse Ox (%): 89 - Physical Exam General: Alert, Mild distress HEENT: Atraumatic, PERRLA, EOMI Neck: Supple, JVD not distended Respiratory: Diminished, Crackles/rales, Expiratory wheezes Cardiovascular: Regular rate/rhythm, Normal S1 S2 Gastrointestinal: Normal bowel sounds, No tenderness Musculoskeletal: No tenderness Integumentary: No rashes Neurological: Normal speech, Normal tone, Normal affect Lymphatics: No axilla or inguinal lymphadenopathy Assessment And Plan - Plan This is a 78-year-old female with: Right pleural effusion Patient with a large right pleural effusion on CT scan. Ultrasound-guided thoracocentesis ordered, patient refused. I did speak to the patient, she is not really sure why she refused but she still refuses. No family at bedside to discuss further. Discussed with son at bedside today. He states that his sister and him are medical [id number] and would like everything done. Patient has been having increasing dementia and unable to make certain decisions as she forgets her medical issues. Thoracocentesis we ordered, the patient did receive Coumadin yesterday. Will hold Coumadin starting tomorrow as they cannot do the procedure until Tuesday. We will also hold heparin with dialysis at this time. Pneumonia, right lower lobe Continue IV antibiotics Continue nebulizing treatments as needed O2 per protocol Congestive heart failure, diastolic, chronic Echocardiogram was done, ejection fraction of 67% with dilated left atria. Will continue home medications, Lasix. End-stage renal disease Patient of Dr. Monson, dialysis schedule on Tuesday, , Tuesday. Nephrology consulted, pending dialysis today per nephrology. Diabetes mellitus, type 2, insulin dependent. Continue Accu-Cheks and low-dose correction scale. Will adjust as needed. Atrial fibrillation. Anticoagulation with Coumadin In sinus rhythm at this time. Continue home medications Pacemaker in place. Stable. Denies any palpitations, chest pain Vascular dementia Hyperlipidemia Continue home statin Hypertension Elevated, we started her home hydralazine. Lisinopril held secondary to renal function. Will continue to monitor, will order IV hydralazine if needed. DVT prophylaxis: On Coumadin GI prophylaxis: Protonix Diet: Renal Disposition: Pending symptomatic improvement. Continue IV antibiotics. Physician Review: Patient Assessed, Agree with Above Assessment and Plan Time Spent Managing PTS Care (In Minutes): 35
[2018-05-11] MEDS: WARFARIN SODIUM 5 MG TAB PO SCH (17:29)
[2018-05-11] MEDS: ATORVASTATIN 10 MG TAB PO SCH (20:45)
[2018-05-12 06:13] LABS: Absolute Lymphocytes (CBC) 1.4 K/uL (0.7-4.9); Absolute Monocytes 0.5 K/uL (0.1-1.3); Absolute Neutrophil 4.6 K/uL (1.8-8.0); Basophils % 0.3 % (0-1.3); Eosinophils % 1.1 % (0-4.4); Hematocrit 35.4 % (36.0-45.0); Lymphocytes % 21.4 % (15.3-44.8); MCH 32.7 pg (27.0-35.0); MCV 98.8 fL (80-100); MPV 9.4 fL (7.6-11.3); Monocytes % 7.9 % (3.3-12.3); RBC Red Blood Cell Count 3.58 M/uL (3.86-4.86)
[2018-05-12 06:28] LABS: Albumin 2.8 g/dL (3.4-5.0); Bilirubin Total 0.3 mg/dL (0.2-1.0); Phosphorus 4.5 mg/dL (2.5-4.9); Potassium 3.9 mmol/L (3.5-5.1); Protein, Total 6.7 g/dL (6.4-8.2)
[2018-05-12] MEDS: HYDRALAZINE HCL 10 MG TABLET PO SCH ×3 (08:48→20:48)
[2018-05-12] MEDS: INSULIN 70/30 100 UNITS/ML SQ SCH ×2 (08:48→16:41)
[2018-05-12] MEDS: DOXYCYCLINE 100 MG in NA CHLORIDE 0.9% 100 ML IVPB SCH ×2 (09:45→20:48)
--- NOTE | 2018-05-12 12:28 | P.PN ---
Subjective Date of Service: 05/12/18 Chief Complaint: Pneumonia/shortness of breath Subjective: No new changes, No C/O voiced Patient seen and examined at bedside. Son at bedside. Chart reviewed and case discussed with nursing staff. No concerns or complaints this morning. Patient sitting up in bed, without any acute distress Review of Systems As noted Physical Examination - Vital Signs Temperature: 97.1 F Blood Pressure: 165/74 Pulse: 84 Respirations: 18 Pulse Ox (%): 94 - Physical Exam General: Alert, In no apparent distress, Oriented x3 HEENT: Atraumatic, PERRLA, EOMI Neck: Supple, JVD not distended Respiratory: Diminished, Crackles/rales Cardiovascular: Regular rate/rhythm, Normal S1 S2 Gastrointestinal: Normal bowel sounds, No tenderness Musculoskeletal: No tenderness Integumentary: No rashes Neurological: Normal speech, Normal tone, Normal affect Lymphatics: No axilla or inguinal lymphadenopathy Assessment And Plan - Plan This is a 78-year-old female with: Right pleural effusion Patient with a large right pleural effusion on CT scan. Ultrasound-guided thoracocentesis ordered, patient refused. I did speak to the patient, she is not really sure why she refused but she still refuses. No family at bedside to discuss further. Discussed with son at bedside yesterday He states that his sister and him are medical [id number] and would like everything done. Patient has been having increasing dementia and unable to make certain decisions as she forgets her medical issues. Thoracocentesis was ordered, the patient did receive Coumadin yesterday. Will hold Coumadin starting today as they cannot do the procedure until Tuesday. We will also hold heparin with dialysis at this time. She is pending a ultrasound-guided thoracocentesis on Tuesday. Pneumonia, right lower lobe Continue IV antibiotics Continue nebulizing treatments as needed O2 per protocol Congestive heart failure, diastolic, chronic Echocardiogram was done, ejection fraction of 67% with dilated left atria. Will continue home medications, Lasix. End-stage renal disease Patient of Dr. Monson, dialysis schedule on Tuesday, , Tuesday. Nephrology consulted, pending dialysis today per nephrology. Diabetes mellitus, type 2, insulin dependent. Continue Accu-Cheks and low-dose correction scale. Will adjust as needed. Atrial fibrillation. Anticoagulation with Coumadin In sinus rhythm at this time. Continue home medications Pacemaker in place. Stable. Denies any palpitations, chest pain Vascular dementia Hyperlipidemia Continue home statin Hypertension Elevated, we started her home hydralazine. Lisinopril held secondary to renal function. Will continue to monitor, will order IV hydralazine if needed. DVT prophylaxis: On Coumadin GI prophylaxis: Protonix Diet: Renal Disposition: Pending symptomatic improvement. Continue IV antibiotics. Physician Review: Patient Assessed, Agree with Above Assessment and Plan Time Spent Managing PTS Care (In Minutes): 35
[2018-05-12] MEDS: ATORVASTATIN 10 MG TAB PO SCH (20:48)
--- NOTE | 2018-05-12 23:14 | P.PN ---
Date of Service: 05/12/18 Vital Signs Temp Pulse Resp BP Pulse Ox 97.4 F 92 H 16 145/63 H 93 05/12/18 20:00 05/12/18 20:00 05/12/18 20:00 05/12/18 20:00 05/12/18 20:00 Medications Acetaminophen (Tylenol -Extra Strength) 500 mg PO Q4HP PRN PRN Reason: [id number] Stop: 06/08/18 20:17 Last Admin: 05/12/18 05:31 Dose: 500 mg Atorvastatin Calcium (Lipitor) 10 mg PO BEDTIME [facility] Stop: 06/09/18 21:01 Last Admin: 05/12/18 20:48 Dose: 10 mg Cholecalciferol (Vitamin D 5,000 Iu Cap) 5,000 unit PO Mo@0900 [facility] Stop: 06/14/18 09:01 Epoetin Calin (Procrit) 10,000 unit IV EVERY HD [facility] Stop: 06/09/18 21:16 Last Admin: 05/11/18 11:55 Dose: 10,000 unit Heparin Sodium (Porcine) (Heparin 1,000 Units/Ml) 2,000 unit IV EVERY HD [facility] Stop: 05/16/18 10:01 Last Admin: 05/11/18 10:30 Dose: 2,000 unit Heparin Sodium (Porcine) (Heparin 1,000 Units/Ml) 6,000 unit IV EVERY HD PRN PRN Reason: FLUSH AFTER EACH USE Stop: 06/10/18 09:52 Hydralazine HCl (Apresoline) 10 mg PO TID [facility] Stop: 06/09/18 09:01 Last Admin: 05/12/18 20:48 Dose: 10 mg Doxycycline Hyclate 100 mg/ (Sodium Chloride) 100 mls @ 100 mls/hr IVPB Q12HR [facility]; Protocol Stop: 06/09/18 21:01 Last Admin: 05/12/18 20:48 Dose: 100 mls Albumin Human (Albumin 25%) 50 mls @ 100 mls/hr IV EVERY HD [facility] Stop: 06/09/18 22:01 Insulin Human Isoph/Insulin Regular (Novolin 70/30) 15 unit SQ BREAKFAST [facility] Stop: 06/09/18 08:01 Last Admin: 05/12/18 08:48 Dose: 15 units Insulin Human Isoph/Insulin Regular (Novolin 70/30) 15 unit SQ SUPPER [facility] Stop: 06/09/18 17:01 Last Admin: 05/12/18 16:41 Dose: 15 units Lisinopril (Prinivil) 20 mg PO BID [facility] Stop: 06/09/18 09:01 Mannitol (Mannitol 12.5 Gm/50 Ml Vial) 12.5 gm IV EVERY HD PRN PRN Reason: BP support at hemodialysis Stop: 06/09/18 21:11 Ondansetron HCl (Zofran) 4 mg IV Q6HP PRN PRN Reason: NAUSEA / VOMITING Stop: 06/08/18 20:17 Sodium Chloride (Normal Saline Flush) 10 ml IV BID [facility] Stop: 06/08/18 21:01 Last Admin: 05/12/18 20:48 Dose: 10 ml Warfarin Sodium (Coumadin) 10 mg PO DAILY 5 PM [facility] Stop: 06/09/18 17:01 Last Admin: 05/11/18 17:29 Dose: 10 mg Microbiology Results 05/09/18 23:25 Clean Catch Urine [place] Count - Preliminary BETWEEN 10,000 & 100,000 CFU/ML 05/09/18 23:25 Clean Catch Urine - Preliminary 05/09/18 17:30 Blood - Blood Aerobic Blood Culture - Preliminary No growth in 24 hours. 05/09/18 17:30 Blood - Blood Anaerobic Blood Culture - Preliminary No growth in 24 hours. 05/09/18 17:50 Blood - Blood Aerobic Blood Culture - Preliminary No growth in 24 hours. 05/09/18 17:50 Blood - Blood Anaerobic Blood Culture - Preliminary No growth in 24 hours. 05/09/18 15:00 Nasopharnyx Influenza Type A Antigen Screen - Final 05/09/18 15:00 Nasopharnyx Influenza Type B Antigen Screen - Final Assessment/ Plan: Nephrology. Feeling better today. +Weakness. CPS improved with CP or SOB. +MOLINA No acute events overnight. Vitals, medications, blood work and imaging reviewed in the chart. General: Cooperative, No distress HEENT: Normocephalic Neck: Supple, JVD distended Respiratory: CTA Cardiovascular: Regular rate/rhythm, Edema Gastrointestinal: Soft and benign, Non-distended Musculoskeletal: No clubbing, No contractures Integumentary: No rashes, No cyanosis Neurological: Normal speech Laboratory Data (last 24 hrs) 05/10/18 05:31: PT 12.6 H, INR 1.07 05/10/18 05:31: Sodium 144, Potassium 4.6, BUN 34 H, Creatinine 4.30 H D, Glucose 204 H, Phosphorus 5.4 H, Magnesium 2.4, Total Bilirubin 0.3, AST 28, ALT 29, Alkaline Phosphatase 108 05/10/18 05:31: WBC 5.4, Hgb 11.1 L, Hct 34.7 L, Plt Count 165 05/10/18 05:00: Phosphorus Cancelled, Magnesium Cancelled Imagings Data: EXAM DESCRIPTION: CT - Thorax Wo Con - 05/09/2018 4:56 pm CLINICAL HISTORY: Persistent cough COMPARISON: Chest films same date, CT chest 2007 TECHNIQUE: Axial 5 mm thick images of the chest were obtained without IV contrast. All CT scans are performed using dose optimization technique as appropriate and may include automated exposure control or mA/KV adjustment according to patient size FINDINGS: Right middle lobe airspace opacification is present suspicious for pneumonia rather than atelectasis. There is partial atelectasis of the right lower lobe. A few patchy airspace opacities are present in the superior aspect right lower lobe. Patient has a moderately large pleural effusion layering along the posterior aspect of the chest. No loculation. No left-sided pleural effusion. No pneumothorax. No pleural based mass. No abnormal mediastinal or hilar masses or lymphadenopathy seen. No gross aortic or pulmonary artery finding suspected. Cardiomegaly is present with small pericardial effusion. No chest wall mass or abnormal axillary lymphadenopathy. IMPRESSION: Moderately large pleural effusion layering along the posterior aspect of the right hemithorax. No loculation. Partial atelectasis of the right lower lobe with minimal airspace opacification in the superior segment possibly pneumonia. Partial opacification of the right middle lobe favored to be pneumonia rather than atelectasis. Cardiomegaly with mild pericardial effusion. Conclusions/Impression: A/ ESRD on HD. DM II with CKD. HTN with CKD/ CHF. Diastolic CHF, chronic. Pleural effusion. Pulmonary HTN. AVS. Anemia in CKD. PER/ Secondary HyperPTH. Vascular Dementia. P/ Continue current POC and Medications. Agree with abx. Follow up cultures. Follow up with pleural fluid studies. Acute dialysis tomorrow. No NSAIDs. AM labs. Daily weight.
[2018-05-13 05:44] LABS: Albumin 2.6 g/dL (3.4-5.0); Phosphorus 5.6 mg/dL (2.5-4.9); Potassium 3.7 mmol/L (3.5-5.1)
[2018-05-13] MEDS: INSULIN 70/30 100 UNITS/ML SQ SCH ×2 (09:24→17:10)
[2018-05-13] MEDS: DOXYCYCLINE 100 MG in NA CHLORIDE 0.9% 100 ML IVPB SCH ×2 (09:25→20:19)
[2018-05-13] MEDS: HYDRALAZINE HCL 10 MG TABLET PO SCH ×3 (09:25→20:18)
[2018-05-13] MEDS: BENZONATATE 100 MG CAP PO PRN (11:51)
--- NOTE | 2018-05-13 15:34 | RAD REPORT ---
EXAM DESCRIPTION: Onel Pa And Lat (2 Views)05/13/2018 3:18 pm CLINICAL HISTORY: Shortness of breath COMPARISON: May 09 FINDINGS: The right pleural effusion has decreased in size and appears relatively small. Small left pleural effusion is present. Upper lobes are clear. Heart is mildly enlarged. Pacemaker leads are in place. A central venous catheter is seen.
--- NOTE | 2018-05-13 16:31 | P.PN ---
Subjective Date of Service: 05/13/18 Chief Complaint: Pneumonia/shortness of breath Patient seen and examined at bedside. Son at bedside. Chart reviewed and case discussed with nursing staff. No concerns or complaints this morning. Patient sitting up in bed, without any acute distress Review of Systems Noted Physical Examination - Vital Signs Temperature: 97.1 F Blood Pressure: 154/70 Pulse: 99 Respirations: 18 Pulse Ox (%): 100 - Physical Exam General: Alert, In no apparent distress HEENT: Atraumatic, PERRLA, EOMI Neck: Supple, JVD not distended Respiratory: Normal air movement, Dull Cardiovascular: Regular rate/rhythm, Normal S1 S2 Gastrointestinal: Normal bowel sounds, No tenderness Musculoskeletal: No tenderness Integumentary: No rashes Neurological: Normal speech, Normal tone, Normal affect Lymphatics: No axilla or inguinal lymphadenopathy - Studies Microbiology Data (last 24 hrs): 05/09/18 23:25 Clean Catch Urine [place] Count - Final BETWEEN 10,000 & 100,000 CFU/ML 05/09/18 23:25 Clean Catch Urine - Final Enterococcus Faecalis Assessment And Plan - Plan This is a 78-year-old female with: Right pleural effusion: Right pleural effusion, decreased in size a repeat chest x-ray. Will see clinically if patient's still having symptoms prior to deciding if we still need to thoracocentesis. Patient with a large right pleural effusion on CT scan. Ultrasound-guided thoracocentesis ordered, patient refused. I did speak to the patient, she is not really sure why she refused but she still refuses. No family at bedside to discuss further. Discussed with son at bedside yesterday He states that his sister and him are medical [id number] and would like everything done. Patient has been having increasing dementia and unable to make certain decisions as she forgets her medical issues. Thoracocentesis was ordered, the patient did receive Coumadin yesterday. Will hold Coumadin starting today as they cannot do the procedure until Tuesday. We will also hold heparin with dialysis at this time. She is pending a ultrasound-guided thoracocentesis on Tuesday. Pneumonia, right lower lobe Continue IV antibiotics Continue nebulizing treatments as needed O2 per protocol Urinary tract infection, enterococcus faecalis Sensitive to tetracyclines Continue IV antibiotics Congestive heart failure, diastolic, chronic Echocardiogram was done, ejection fraction of 67% with dilated left atria. Will continue home medications, Lasix. End-stage renal disease Patient of Dr. Monson, dialysis schedule on Tuesday, , Tuesday. Nephrology consulted, recommendations appreciated Diabetes mellitus, type 2, insulin dependent. Continue Accu-Cheks and low-dose correction scale. Will adjust as needed. Atrial fibrillation. Anticoagulation with Coumadin In sinus rhythm at this time. Continue home medications Pacemaker in place. Stable. Denies any palpitations, chest pain Vascular dementia Hyperlipidemia Continue home statin Hypertension Elevated, we started her home hydralazine. Lisinopril held secondary to renal function. Will continue to monitor, will order IV hydralazine if needed. DVT prophylaxis: On Coumadin GI prophylaxis: Protonix Diet: Renal Disposition: Pending symptomatic improvement. Continue IV antibiotics. Physician Review: Patient Assessed, Agree with Above Assessment and Plan
[2018-05-13] MEDS: ATORVASTATIN 10 MG TAB PO SCH (20:18)
--- NOTE | 2018-05-13 20:45 | P.PN ---
Date of Service: 05/13/18 Vital Signs Temp Pulse Resp BP Pulse Ox 97.1 F 99 H 18 154/70 H 100 05/13/18 16:31 05/13/18 16:31 05/13/18 16:31 05/13/18 16:31 05/13/18 16:31 Medications Acetaminophen (Tylenol -Extra Strength) 500 mg PO Q4HP PRN PRN Reason: [id number] Stop: 06/08/18 20:17 Last Admin: 05/12/18 05:31 Dose: 500 mg Atorvastatin Calcium (Lipitor) 10 mg PO BEDTIME CHUYIAT Stop: 06/09/18 21:01 Last Admin: 05/13/18 20:18 Dose: 10 mg Benzonatate (Tessalon Perle) 100 mg PO TIDP PRN PRN Reason: COUGH Stop: 06/12/18 11:46 Last Admin: 05/13/18 11:51 Dose: 100 mg Cholecalciferol (Vitamin D 5,000 Iu Cap) 5,000 unit PO Mo@0900 [facility] Stop: 06/14/18 09:01 Epoetin Calin (Procrit) 10,000 unit IV EVERY HD [facility] Stop: 06/09/18 21:16 Last Admin: 05/11/18 11:55 Dose: 10,000 unit Heparin Sodium (Porcine) (Heparin 1,000 Units/Ml) 2,000 unit IV EVERY HD [facility] Stop: 05/16/18 10:01 Last Admin: 05/11/18 10:30 Dose: 2,000 unit Heparin Sodium (Porcine) (Heparin 1,000 Units/Ml) 6,000 unit IV EVERY HD PRN PRN Reason: FLUSH AFTER EACH USE Stop: 06/10/18 09:52 Hydralazine HCl (Apresoline) 10 mg PO TID [facility] Stop: 06/09/18 09:01 Last Admin: 05/13/18 20:18 Dose: 10 mg Doxycycline Hyclate 100 mg/ (Sodium Chloride) 100 mls @ 100 mls/hr IVPB Q12HR [facility]; Protocol Stop: 06/09/18 21:01 Last Admin: 05/13/18 20:19 Dose: 100 mls Albumin Human (Albumin 25%) 50 mls @ 100 mls/hr IV EVERY HD [facility] Stop: 06/09/18 22:01 Insulin Human Isoph/Insulin Regular (Novolin 70/30) 15 unit SQ BREAKFAST [facility] Stop: 06/09/18 08:01 Last Admin: 05/13/18 09:24 Dose: 15 units Insulin Human Isoph/Insulin Regular (Novolin 70/30) 15 unit SQ SUPPER [facility] Stop: 06/09/18 17:01 Last Admin: 05/13/18 17:10 Dose: 15 units Lisinopril (Prinivil) 20 mg PO BID [facility] Stop: 06/09/18 09:01 Mannitol (Mannitol 12.5 Gm/50 Ml Vial) 12.5 gm IV EVERY HD PRN PRN Reason: BP support at hemodialysis Stop: 06/09/18 21:11 Ondansetron HCl (Zofran) 4 mg IV Q6HP PRN PRN Reason: NAUSEA / VOMITING Stop: 06/08/18 20:17 Sodium Chloride (Normal Saline Flush) 10 ml IV BID [facility] Stop: 06/08/18 21:01 Last Admin: 05/13/18 20:19 Dose: 10 ml Warfarin Sodium (Coumadin) 10 mg PO DAILY 5 PM [facility] Stop: 06/09/18 17:01 Last Admin: 05/11/18 17:29 Dose: 10 mg Microbiology Results 05/09/18 23:25 Clean Catch Urine [place] Count - Final BETWEEN 10,000 & 100,000 CFU/ML 05/09/18 23:25 Clean Catch Urine - Final Enterococcus Faecalis 05/09/18 17:30 Blood - Blood Aerobic Blood Culture - Preliminary No growth in 24 hours. 05/09/18 17:30 Blood - Blood Anaerobic Blood Culture - Preliminary No growth in 24 hours. 05/09/18 17:50 Blood - Blood Aerobic Blood Culture - Preliminary No growth in 24 hours. 05/09/18 17:50 Blood - Blood Anaerobic Blood Culture - Preliminary No growth in 24 hours. 05/09/18 15:00 Nasopharnyx Influenza Type A Antigen Screen - Final 05/09/18 15:00 Nasopharnyx Influenza Type B Antigen Screen - Final Assessment/ Plan: Nephrology. Feeling better today. +Weakness. CPS improved with CP or SOB. +MOLINA No acute events overnight. Vitals, medications, blood work and imaging reviewed in the chart. General: Cooperative, No distress HEENT: Normocephalic Neck: Supple, JVD distended Respiratory: CTA Cardiovascular: Regular rate/rhythm, Edema Gastrointestinal: Soft and benign, Non-distended Musculoskeletal: No clubbing, No contractures Integumentary: No rashes, No cyanosis Neurological: Normal speech Laboratory Data (last 24 hrs) 05/10/18 05:31: PT 12.6 H, INR 1.07 05/10/18 05:31: Sodium 144, Potassium 4.6, BUN 34 H, Creatinine 4.30 H D, Glucose 204 H, Phosphorus 5.4 H, Magnesium 2.4, Total Bilirubin 0.3, AST 28, ALT 29, Alkaline Phosphatase 108 05/10/18 05:31: WBC 5.4, Hgb 11.1 L, Hct 34.7 L, Plt Count 165 05/10/18 05:00: Phosphorus Cancelled, Magnesium Cancelled Imagings Data: EXAM DESCRIPTION: CT - Thorax Wo Con - 05/09/2018 4:56 pm CLINICAL HISTORY: Persistent cough COMPARISON: Chest films same date, CT chest 2007 TECHNIQUE: Axial 5 mm thick images of the chest were obtained without IV contrast. All CT scans are performed using dose optimization technique as appropriate and may include automated exposure control or mA/KV adjustment according to patient size FINDINGS: Right middle lobe airspace opacification is present suspicious for pneumonia rather than atelectasis. There is partial atelectasis of the right lower lobe. A few patchy airspace opacities are present in the superior aspect right lower lobe. Patient has a moderately large pleural effusion layering along the posterior aspect of the chest. No loculation. No left-sided pleural effusion. No pneumothorax. No pleural based mass. No abnormal mediastinal or hilar masses or lymphadenopathy seen. No gross aortic or pulmonary artery finding suspected. Cardiomegaly is present with small pericardial effusion. No chest wall mass or abnormal axillary lymphadenopathy. IMPRESSION: Moderately large pleural effusion layering along the posterior aspect of the right hemithorax. No loculation. Partial atelectasis of the right lower lobe with minimal airspace opacification in the superior segment possibly pneumonia. Partial opacification of the right middle lobe favored to be pneumonia rather than atelectasis. Cardiomegaly with mild pericardial effusion. Conclusions/Impression: A/ ESRD on HD. DM II with CKD. HTN with CKD/ CHF. Diastolic CHF, chronic. Pleural effusion. Pulmonary HTN. AVS. Anemia in CKD. PER/ Secondary HyperPTH. Vascular Dementia. P/ Continue current POC and Medications. Agree with abx. Follow up cultures. Thoracentesis on Tuesday. Seen and examined on HD today. No NSAIDs. AM labs. Daily weight.
[2018-05-13 21:32] LABS: Hepatitis C Virus RNA (PCR)log <1.18 log IU/mL
[2018-05-14 05:21] LABS: Albumin 2.9 g/dL (3.4-5.0); Potassium 3.7 mmol/L (3.5-5.1)
[2018-05-14] MEDS: DOXYCYCLINE 100 MG in NA CHLORIDE 0.9% 100 ML IVPB SCH ×2 (09:32→20:45)
[2018-05-14] MEDS: INSULIN 70/30 100 UNITS/ML SQ SCH ×2 (09:32→16:18)
[2018-05-14] MEDS: HYDRALAZINE HCL 10 MG TABLET PO SCH ×3 (09:32→20:45)
[2018-05-14] MEDS: BENZONATATE 100 MG CAP PO PRN (09:33)
--- NOTE | 2018-05-14 11:39 | P.PN ---
Subjective Date of Service: 05/14/18 Chief Complaint: Pneumonia/shortness of breath Subjective: No new changes, No C/O voiced, Improving Patient seen and examined at bedside. Son at bedside. Chart reviewed and case discussed with nursing staff. No concerns or complaints this morning. Patient sitting up in bed, without any acute distress Review of Systems As noted Physical Examination - Vital Signs Temperature: 97.8 F Blood Pressure: 135/60 Pulse: 85 Respirations: 18 Pulse Ox (%): 95 - Physical Exam General: Alert, In no apparent distress, Confused (Though at baseline) HEENT: Atraumatic, PERRLA, EOMI Neck: Supple, JVD not distended Respiratory: Clear to auscultation bilaterally, Normal air movement Cardiovascular: Regular rate/rhythm, Normal S1 S2 Gastrointestinal: Normal bowel sounds, No tenderness Musculoskeletal: No tenderness Integumentary: No rashes Neurological: Normal speech, Normal tone, Normal affect Lymphatics: No axilla or inguinal lymphadenopathy - Studies Microbiology Data (last 24 hrs): 05/09/18 23:25 Clean Catch Urine [place] Count - Final BETWEEN 10,000 & 100,000 CFU/ML 05/09/18 23:25 Clean Catch Urine - Final Enterococcus Faecalis Assessment And Plan - Plan This is a 78-year-old female with: Right pleural effusion: Right pleural effusion, decreased in size a repeat chest x-ray. Will see clinically if patient's still having symptoms prior to deciding if we still need to thoracocentesis. Patient with a large right pleural effusion on CT scan. Ultrasound-guided thoracocentesis ordered, patient refused. I did speak to the patient, she is not really sure why she refused but she still refuses. No family at bedside to discuss further. Discussed with son at bedside yesterday He states that his sister and him are medical [id number] and would like everything done. Patient has been having increasing dementia and unable to make certain decisions as she forgets her medical issues. Thoracocentesis was ordered, the patient did receive Coumadin yesterday. Will hold Coumadin starting today as they cannot do the procedure until Tuesday. We will also hold heparin with dialysis at this time. She is pending a ultrasound-guided thoracocentesis on Tuesday. Pneumonia, right lower lobe Continue IV antibiotics Continue nebulizing treatments as needed O2 per protocol Urinary tract infection, enterococcus faecalis Sensitive to tetracyclines Continue IV antibiotics Congestive heart failure, diastolic, chronic Echocardiogram was done, ejection fraction of 67% with dilated left atria. Will continue home medications, Lasix. End-stage renal disease Patient of Dr. Monson, dialysis schedule on Tuesday, , Tuesday. Nephrology consulted, recommendations appreciated Diabetes mellitus, type 2, insulin dependent. Continue Accu-Cheks and low-dose correction scale. Will adjust as needed. Atrial fibrillation. Anticoagulation with Coumadin In sinus rhythm at this time. Continue home medications Pacemaker in place. Stable. Denies any palpitations, chest pain Vascular dementia Hyperlipidemia Continue home statin Hypertension Elevated, we started her home hydralazine. Lisinopril held secondary to renal function. Will continue to monitor, will order IV hydralazine if needed. DVT prophylaxis: On Coumadin GI prophylaxis: Protonix Diet: Renal Disposition: Pending symptomatic improvement. Continue IV antibiotics. Physician Review: Patient Assessed, Agree with Above Assessment and Plan
[2018-05-14] MEDS: ATORVASTATIN 10 MG TAB PO SCH (20:45)
[2018-05-15 06:04] LABS: Absolute Lymphocytes (CBC) 1.4 K/uL (0.7-4.9); Absolute Monocytes 0.4 K/uL (0.1-1.3); Absolute Neutrophil 3.1 K/uL (1.8-8.0); Basophils % 0.6 % (0-1.3); Eosinophils % 2.9 % (0-4.4); Lymphocytes % 27.1 % (15.3-44.8); MCV 98.3 fL (80-100); Monocytes % 7.9 % (3.3-12.3); RBC Red Blood Cell Count 3.67 M/uL (3.86-4.86)
[2018-05-15 06:45] LABS: Albumin 2.8 g/dL (3.4-5.0); Bilirubin Total 0.3 mg/dL (0.2-1.0); Phosphorus 5.4 mg/dL (2.5-4.9); Potassium 3.7 mmol/L (3.5-5.1); Protein, Total 6.5 g/dL (6.4-8.2)
[2018-05-15] MEDS: INSULIN 70/30 100 UNITS/ML SQ SCH (08:44)
[2018-05-15] MEDS ORDERED: VITAMIN D 5,000 UNIT CAP PO SCH (09:00)
[2018-05-15] MEDS: DOXYCYCLINE 100 MG in NA CHLORIDE 0.9% 100 ML IVPB SCH (10:30)
[2018-05-15] MEDS: HYDRALAZINE HCL 10 MG TABLET PO SCH ×2 (10:30→14:18)
--- NOTE | 2018-05-15 11:13 | RAD REPORT ---
EXAM DESCRIPTION: US - Chest - 05/15/2018 11:07 am CLINICAL HISTORY: Right pleural effusion COMPARISON: Two view chest May 13, CT chest May 09 FINDINGS: Patient was received from the for for ultrasound-guided thoracentesis. Preliminary imaging was performed and showed very little pleural effusion either lung base. Pleural fluid volume has sub stantially reduced from the May 09 CT imaging. The minimal quantity of pleural fluid remaining is a non drainable quantity. IMPRESSION: Patient's right-sided pleural effusions seen May 09 has substantially reduced in vol ume. Patient no longer has a drainable quantity of pleural fluid on the right.
[2018-05-15 11:18] LABS: Urine Protein/Creatinine Ratio 7.25 ratio (<0.15)
[2018-05-15 12:40] VITALS: O2SAT 94
--- NOTE | 2018-05-15 12:47 | P.DS ---
Admission Date: 05/10/18 Discharge Date: 05/15/18 Disposition: TRANSFER TO JAIL Comment: Previous custodial resident Discharge Condition: GOOD Reason for Admission: Pneumonia/shortness of breath Consultations: Dr. Canales, Nephrology Procedures: 05/15/2018: Attempted thoracocentesis, not needed as not much to drain. Brief History of Present Illness: Patient is a 78-year-old female came into the hospital with coughing congestion. Patient's symptoms been going on for the last few days and she is gradually getting worse. Patient had fever shakes and chills. Patient came into the hospital for further workup. In the emergency room her workup revealed she had a large right lobar pneumonia along with large pleural effusion. Patient will be admitted to the hospital for further workup. Hospital Course: Right pleural effusion: . Patient with a large right pleural effusion on CT scan. Ultrasound-guided thoracocentesis ordered, patient refused initially. I did speak to the patient , she is not really sure why she refused but she still refuses. No family at bedside to discuss further. Discussed with son at bedside who stated that his sister and him are medical [id number] and would like everything done. Patient has been having increasing dementia and unable to make certain decisions as she forgets her medical issues. Thoracocentesis was re-ordered but he was delayed due to patient receiving Coumadin. The Coumadin was held on Tuesday, Tuesday and Tuesday [facility] for a procedure on Tuesday. Over the weekend, chest x-ray repeated which showed decreasing size of the pleural effusion, patient is clinically improving. Therefore ultrasound-guided thoracocentesis was not done. At the time of discharge, patient was breathing well, had no complaints and she was doing well. Pneumonia, right lower lobe She was started on IV antibiotics, nebulizer treatments were given as needed. She also received O2 as needed. At the time of discharge, she was transitioned to oral doxycycline 100 mg every 12 hr to complete a seven-day course. Urinary tract infection, enterococcus faecalis Sensitive to tetracyclines. She was given IV antibiotics, and transition to oral antibiotics on discharge. Congestive heart failure, diastolic, chronic Echocardiogram was done, ejection fraction of 67% with dilated left atria. No changes made to home medications. End-stage renal disease Patient of Dr. Monson, dialysis schedule on Tuesday, , Tuesday. Nephrology was consulted, and she continued to follow her regular dialysis schedule in the hospital. Diabetes mellitus, type 2, insulin dependent. She remained stable throughout the stay, no changes made to medication on discharge. Atrial fibrillation. Anticoagulation with Coumadin In sinus rhythm, home medications continued. Pacemaker in place. Stable. Denies any palpitations, chest pain Vascular dementia Remained stable, at her baseline. Hyperlipidemia Stable on home statin Hypertension Elevated initially, stabilized in home medications. Will continue home medications. No med changes made to medications on discharge Vital Signs/Physical Exam: Temp Pulse Resp BP Pulse Ox 97.1 F 85 20 163/69 H 89 L 05/15/18 08:00 05/15/18 08:00 05/15/18 08:00 05/15/18 08:00 05/15/18 08:00 General: Alert, In no apparent distress, Confused (At baseline) HEENT: Atraumatic, PERRLA, EOMI Neck: Supple, JVD not distended Respiratory: Clear to auscultation bilaterally, Normal air movement Cardiovascular: Regular rate/rhythm, Normal S1 S2 Gastrointestinal: Normal bowel sounds, No tenderness Musculoskeletal: No tenderness Integumentary: No rashes Neurological: Normal speech, Normal tone, Normal affect Laboratory Data at Discharge: WBC 5.0 K/uL (4.3-10.9) D 05/15/18 05:31 Hgb 12.1 g/dL (12.0-15.0) 05/15/18 05:31 Hct 36.0 % (36.0-45.0) 05/15/18 05:31 Plt Count 191 K/uL (152-406) 05/15/18 05:31 PT 12.6 SECONDS (9.5-12.5) H 05/10/18 05:31 INR 1.07 05/10/18 05:31 Sodium 142 mmol/L (136-145) 05/15/18 05:31 Potassium 3.7 mmol/L (3.5-5.1) 05/15/18 05:31 BUN 47 mg/dL (7-18) H 05/15/18 05:31 Creatinine 5.40 mg/dL (0.55-1.3) H* D 05/15/18 05:31 Glucose 96 mg/dL (74-106) 05/15/18 05:31 Uric Acid 4.9 mg/dL (2.6-6.0) 05/11/18 05:25 Phosphorus 5.4 mg/dL (2.5-4.9) H 05/15/18 05:31 Magnesium 2.4 mg/dL (1.8-2.4) 05/10/18 05:31 Total Bilirubin 0.3 mg/dL (0.2-1.0) 05/15/18 05:31 AST 24 U/L (15-37) 05/15/18 05:31 ALT 22 U/L (12-78) 05/15/18 05:31 Alkaline Phosphatase 90 U/L (45-117) 05/15/18 05:31 Triglycerides 56 mg/dL (<150) 05/10/18 14:08 Cholesterol 121 mg/dL (<200) 05/10/18 14:08 Home Medications: Acetaminophen [Tylenol] 650 mg PO Q6HP PRN 05/11/18 Allopurinol [Zyloprim*] 100 mg PO DAILY 05/11/18 Amiodarone HCl [Cordarone*] 200 mg PO DAILY 05/11/18 Amlodipine Besylate [Norvasc] 10 mg PO DAILY 05/11/18 Apixaban [Eliquis] 5 mg PO BID 05/11/18 Atorvastatin Calcium [Lipitor*] 10 mg PO BEDTIME 05/11/18 Bisacodyl [Biscolax] 10 mg RC DAILYPRN PRN 05/11/18 Calcium Acetate [Phoslo*] 1 cap PO TIDWM 05/11/18 Docusate [Colace Cap*] 100 mg PO BID 05/11/18 Duloxetine HCl [Cymbalta] 20 mg PO DAILY 05/11/18 Famotidine 20 mg PO DAILY 05/11/18 Furosemide [Lasix] 40 mg PO BID 05/11/18 Galantamine HBr [Razadyne] 12 mg PO BID 05/11/18 Hydralazine HCl [Apresoline] 50 mg PO TID 05/11/18 Insulin Aspart [Novolog Flexpen] See Protocol SQ ACHS 05/11/18 Insulin Glargine,Hum.rec.anlog [Lantus Solostar] 25 unit SQ BIDWM 05/11/18 LORazepam [Ativan*] 0.5 mg PO T,TH,S 12/06/18 Levothyroxine Sodium 25 mcg PO DAILY 05/11/18 Lisinopril 40 mg PO DAILY 05/11/18 Loperamide HCl [Imodium A-D] 4 mg PO Q12HP PRN 05/11/18 Metoprolol Succinate 50 mg PO DAILY 05/11/18 Midodrine HCl [Proamatine*] 5 mg PO T,TH,S 05/11/18 Ondansetron HCl [Zofran] 4 mg PO Q8HP 05/11/18 Polyethylene Glycol 3350 [Miralax] 17 gm PO Q8HP 05/11/18 Pregabalin [Lyrica] 100 mg PO BID 05/11/18 Spironolactone [Aldactone*] 25 mg PO DAILY 05/11/18 Benzonatate [Tessalon Perle*] 100 mg PO TIDP PRN #15 cap 05/15/18 New Medications: Benzonatate [Tessalon Perle*] 100 mg PO TIDP PRN #15 cap PRN Reason: Cough Patient Discharge Instructions: Please follow up with your primary care physician in 1-2 weeks. Diet: AHA Activity: Ad victor m Physician Review: Patient Assessed, Agree with Above Assessment and Plan Time spent managing pt's care (in minutes): 55
[2018-05-15 12:51] LABS: HIV 1/2 Antibody Diff Not indicated.; HIV AG/AB 4TH GEN Non-reactive (Non-reactive)
[2018-05-15 14:35] VITALS: TEMP 97.8
[2018-05-15 15:45] VITALS: BP 154/72
--- NOTE | 2018-05-15 20:09 | P.PN ---
Date of Service: 05/15/18 Vital Signs Temp Pulse Resp BP Pulse Ox 97.8 F 72 20 154/72 H 94 05/15/18 12:00 05/15/18 12:00 05/15/18 12:00 05/15/18 15:00 05/15/18 12:00 Microbiology Results 05/09/18 17:30 Blood - Blood Aerobic Blood Culture - Final No growth in 5 days. 05/09/18 17:30 Blood - Blood Anaerobic Blood Culture - Final No growth in 5 days. 05/09/18 17:50 Blood - Blood Aerobic Blood Culture - Final No growth in 5 days. 05/09/18 17:50 Blood - Blood Anaerobic Blood Culture - Final No growth in 5 days. 05/09/18 23:25 Clean Catch Urine [place] Count - Final BETWEEN 10,000 & 100,000 CFU/ML 05/09/18 23:25 Clean Catch Urine - Final Enterococcus Faecalis 05/09/18 15:00 Nasopharnyx Influenza Type A Antigen Screen - Final 05/09/18 15:00 Nasopharnyx Influenza Type B Antigen Screen - Final Assessment/ Plan: Nephrology. Feeling better today. CPS improved with CP or SOB. +MOLINA No acute events overnight. Vitals, medications, blood work and imaging reviewed in the chart. General: Cooperative, No distress HEENT: Normocephalic Neck: Supple, JVD distended Respiratory: CTA Cardiovascular: Regular rate/rhythm, Edema Gastrointestinal: Soft and benign, Non-distended Musculoskeletal: No clubbing, No contractures Integumentary: No rashes, No cyanosis Neurological: Normal speech Laboratory Data (last 24 hrs) 05/10/18 05:31: PT 12.6 H, INR 1.07 05/10/18 05:31: Sodium 144, Potassium 4.6, BUN 34 H, Creatinine 4.30 H D, Glucose 204 H, Phosphorus 5.4 H, Magnesium 2.4, Total Bilirubin 0.3, AST 28, ALT 29, Alkaline Phosphatase 108 05/10/18 05:31: WBC 5.4, Hgb 11.1 L, Hct 34.7 L, Plt Count 165 05/10/18 05:00: Phosphorus Cancelled, Magnesium Cancelled Imagings Data: EXAM DESCRIPTION: CT - Thorax Wo Con - 05/09/2018 4:56 pm CLINICAL HISTORY: Persistent cough COMPARISON: Chest films same date, CT chest 2007 TECHNIQUE: Axial 5 mm thick images of the chest were obtained without IV contrast. All CT scans are performed using dose optimization technique as appropriate and may include automated exposure control or mA/KV adjustment according to patient size FINDINGS: Right middle lobe airspace opacification is present suspicious for pneumonia rather than atelectasis. There is partial atelectasis of the right lower lobe. A few patchy airspace opacities are present in the superior aspect right lower lobe. Patient has a moderately large pleural effusion layering along the posterior aspect of the chest. No loculation. No left-sided pleural effusion. No pneumothorax. No pleural based mass. No abnormal mediastinal or hilar masses or lymphadenopathy seen. No gross aortic or pulmonary artery finding suspected. Cardiomegaly is present with small pericardial effusion. No chest wall mass or abnormal axillary lymphadenopathy. IMPRESSION: Moderately large pleural effusion layering along the posterior aspect of the right hemithorax. No loculation. Partial atelectasis of the right lower lobe with minimal airspace opacification in the superior segment possibly pneumonia. Partial opacification of the right middle lobe favored to be pneumonia rather than atelectasis. Cardiomegaly with mild pericardial effusion. Conclusions/Impression: A/ ESRD on HD. DM II with CKD. HTN with CKD/ CHF. Diastolic CHF, chronic. Pleural effusion. Pulmonary HTN. AVS. Anemia in CKD. PER/ Secondary HyperPTH. Vascular Dementia. P/ Continue current POC and Medications. Agree with abx. Follow up cultures. Thoracentesis on today Next HD tomorrow. No NSAIDs. AM labs. Daily weight.
[2018-05-15 20:14] LABS: Alpha-1-Globulins 0.4 g/dL (0.2-0.3); Alpha-2-Globulins 0.9 g/dL (0.5-0.9); Gamma Globulins 0.8 g/dL (0.8-1.7); INTERPRETATION REPORT
[2018-05-16 03:46] LABS: HBsAG Nonreactive (Nonreactive)
[2018-05-16 07:51] LABS: P-ANCA Anti-Myeloperoxidase Ab <1.0 AI (<1.0)
== END 2018-05-15 15:36 | DRG 186 ==
LOC: ER 14:13 → ERHOLD 20:16 → 2ND 21:03 → OBSVTOIN 05-10 09:59
PROVIDERS: ADMIT Family Medicine; ATTEND Family Medicine
PROC: 5A1D70Z Performance of Urinary Filtration, Intermittent, Less than 6 Hours Per Day (ICD-10-PCS; principal; 2018-05-11)
PROC: 5A1D70Z Performance of Urinary Filtration, Intermittent, Less than 6 Hours Per Day (ICD-10-PCS; 2018-05-13)
DX: J90 Pleural effusion, not elsewhere classified (principal); N18.6 End stage renal disease; J18.9 Pneumonia, unspecified organism; N39.0 Urinary tract infection, site not specified; I13.2 Hypertensive heart and chronic kidney disease with heart failure and with stage 5 chronic kidney disease, or end stage renal disease; I50.32 Chronic diastolic (congestive) heart failure; N25.81 Secondary hyperparathyroidism of renal origin; B95.2 Enterococcus as the cause of diseases classified elsewhere; E11.22 Type 2 diabetes mellitus with diabetic chronic kidney disease; Z99.2 Dependence on renal dialysis; Z79.4 Long term (current) use of insulin; I48.91 Unspecified atrial fibrillation; Z79.01 Long term (current) use of anticoagulants; Z95.0 Presence of cardiac pacemaker; F01.50 Vascular dementia, unspecified severity, without behavioral disturbance, psychotic disturbance, mood disturbance, and anxiety; E78.5 Hyperlipidemia, unspecified; Z88.5 Allergy status to narcotic agent; Z88.0 Allergy status to penicillin; Z88.8 Allergy status to other drugs, medicaments and biological substances; Z87.891 Personal history of nicotine dependence; E11.40 Type 2 diabetes mellitus with diabetic neuropathy, unspecified; D63.1 Anemia in chronic kidney disease
CPT/HCPCS: 36415; 71046; 71250; 76604; 76770; 80048; 80053; 80069; 81003; 81015; 82040; 82465; 82570; 82607; 82728; 82746; 82962; 83520; 83540; 83615; 83735; 83880; 83970; 84100; 84155; 84156; 84165; 84443; 84466; 84478; 84550; 85025; 85044; 85610; 86021; 86038; 86160; 86225; 86317; 86430; 86704; 86706; 87040; 87077; 87086; 87088; 87186; 87340; 87389; 87522; 87804; 90935; 93306; 94760; 96365; 97116; 97163; 97530; 99285; J1644; J7030; Q4081

== ENCOUNTER 2018-06-22 00:03 | Inpatient (IN) | payer OTHER ==
[2018-06-22 00:57] LABS: Absolute Lymphocytes (CBC) 2.3 K/uL (0.7-4.9); Absolute Monocytes 0.5 K/uL (0.1-1.3); Absolute Neutrophil 3.6 K/uL (1.8-8.0); Basophils % 0.6 % (0-1.3); Eosinophils % 2.5 % (0-4.4); Hematocrit 27.7 % (36.0-45.0); Lymphocytes % 34.4 % (15.3-44.8); Monocytes % 7.9 % (3.3-12.3)
[2018-06-22 01:01] LABS: Protime INR 1.45
[2018-06-22 01:18] LABS: ALT/SGPT 17 U/L (12-78); AST/SGOT 13 U/L (15-37); Albumin 3.2 g/dL (3.4-5.0); Alkaline Phosphatase 112 U/L (45-117); BUN Blood Urea Nitrogen 38 mg/dL (7-18); Bicarbonate 26 mmol/L (21-32); Bilirubin Direct < 0.1 mg/dL (0-0.2); Bilirubin Total 0.3 mg/dL (0.2-1.0); Glucose Level 139 mg/dL (74-106); Lipase 273 U/L (73-393); Magnesium 2.3 mg/dL (1.8-2.4); NT PRO-BNP 30530 pg/mL (<450); Potassium 4.7 mmol/L (3.5-5.1); Protein, Total 7.1 g/dL (6.4-8.2); Sodium Level 138 mmol/L (136-145); Troponin I < 0.02 ng/mL (0.0-0.045)
--- NOTE | 2018-06-22 01:21 | ER ---
Nurse's Notes [facility] Name: Renée Souza Age: 78 yrs Sex: Female : 1940 Arrival Date: 06/22/2018 Time: 00:04 Bed 8 Private MD: Diagnosis: Dyspnea;Pleural effusion in conditions classified elsewhere;Unspecified kidney failure;End stage renal disease;Hypoxemia Presentation: 06/22 00:06 Presenting complaint: EMS states: Called to [facility] for patient with difficulty lp1 breathing; O2 at 87% on RA, symptoms of congestion; Per [facility] staff, Provider states patient may be fluid overloaded; Additional dialysis to be scheduled; Patient given breathing treatment with relief. Transition of care: patient was received from another setting of care ([facility]. Onset of symptoms was June 22, 2018. Risk Assessment: Do you want to hurt yourself or someone else? Patient reports no desire to harm self or others. Initial Sepsis Screen: Does the patient meet any 2 criteria? No. Patient's initial sepsis screen is negative. Does the patient have a suspected source of infection? No. Patient's initial sepsis screen is negative. Care prior to arrival: Medication(s) given: Albuterol Neb x 1, Atrovent Neb x 1, Oxygen administered. via a nebulizer mask. 00:06 Method Of Arrival: EMS: [facility] lp1 00:06 Acuity: YUNIER 2 lp1 Historical: - Allergies: 00:29 Aspirin; lp1 00:29 Codeine; lp1 00:29 Morphine; lp1 00:29 PENICILLINS; lp1 00:29 Keflex; lp1 00:29 Levaquin; lp1 00:29 HYDROCODONE; lp1 - Home Meds: 00:29 Aldactone 25 mg Oral tab 1 tab once daily [Active]; allopurinol 100 mg Oral tab 1 tab lp1 once daily [Active]; amiodarone 200 mg Oral tab 1 tab once daily [Active]; amlodipine 10 mg tab 1 tab once daily [Active]; Ativan 0.5 mg Oral tab [Active]; atorvastatin 10 mg oral tab nightly [Active]; benzonatate 100 mg oral cap every 8 hours for Cough [Active]; bisacodyl 10 mg Rectal supp 1 suppository once daily for Constipation [Active]; calcium acetate 667 mg oral cap 3 times per day [Active]; Colace 100 mg oral cap 1 cap 2 times per day for Constipation [Active]; duloxetine 20 mg oral cpDR daily [Active]; Eliquis 5 mg oral tab 1 tab 2 times per day [Active]; famotidine 20 mg Oral tab 1 tab once daily [Active]; galantamine 12 mg oral tab 1 tab 2 times per day [Active]; hydralazine 50 mg Oral tab three times a day [Active]; Lantus 100 unit/mL Sub-Q soln 25 unit twice a day [Active]; Lasix 40 mg Oral tab 1 tab once daily [Active]; levothyroxine 25 mcg tab 1 tab once daily [Active]; lisinopril 40 mg Oral tab 1 tab once daily [Active]; loperamide 2 mg Oral tab 2 tabs every 4 hours for Diarrhea [Active]; Lyrica 100 mg Oral 2 times per day [Active]; metoprolol tartrate 50 mg Oral tab 1 tab once daily [Active]; midodrine 5 mg oral tab twice a day [Active]; Novolog 100 unit/mL Sub-Q soln [Active]; - PMHx: 00:29 Pneumonia; Pleural effusion; dysphagia; Depression; VASCULAR DEMENTIA; ESRD; lp1 Dialysis-T/TH/SAT; Hypothyroidism; Hypertension; Anemia; Diabetes - NIDDM; Myocardial infarction; Atrial Fib; CHF; COPD; Peripheral venous insufficiency; Hyperlipidemia; - PSHx: 00:29 Pacemaker; lp1 - Immunization history:: Adult Immunizations up to date. - Social history:: Smoking status: Patient/guardian denies using tobacco, the patient reports quitting approximately 10 years ago. - Family history:: not pertinent. - Ebola Screening: : No symptoms or risks identified at this time. Screenin:31 Abuse screen: Denies threats or abuse. Denies injuries from another. Nutritional lp1 screening: No deficits noted. Tuberculosis screening: No symptoms or risk factors identified. Fall Risk Total Umanzor Fall Scale indicates High Risk Score (45 or more points). Fall prevention measures have been instituted. Side Rails Up X 2 As available patient and family educated on Fall Prevention Program and Strategies. Assessment: 00:49 General: Appears in no apparent distress. Behavior is calm, cooperative, appropriate ea for age. Pain: Denies pain. Neuro: Level of Consciousness is awake, alert, obeys commands, Oriented to person, place, time, situation. Cardiovascular: Heart tones S1 S2 present Murmur present Patient's skin is warm and dry. Cardiovascular: Dialysis shunt: in the anterior aspect of right upper chest. Respiratory: Airway is patent Respiratory effort is even, Respiratory pattern is regular, Breath sounds with crackles in left upper lobe Breath sounds are diminished in left posterior lower lobe, right posterior middle lobe and right posterior lower lobe. Derm: Skin is dry, Skin is pale, Skin temperature is warm. Musculoskeletal: Circulation, motion, and sensation intact. 01:50 Reassessment: Patient and/or family updated on plan of care and expected duration. Pain ea level reassessed. Pt resting with eyes closed, respirations even and unlabored. Chest expansions even and symmetrical. 02:50 Reassessment: Patient and/or family updated on plan of care and expected duration. Pain ea level reassessed. Pt resting with eyes closed, respirations even and unlabored. Chest expansions even and symmetrical. No s/s of pain or discomfort noted at this time. 03:50 Reassessment: Patient and/or family updated on plan of care and expected duration. Pain ea level reassessed. Pt resting with eyes closed, respirations even and unlabored, chest expansions even and symmetrical. No s/s of pain or discomfort. 04:08 Reassessment: Report given to Radha ESCALANTE. ea 04:17 Reassessment: Patient and/or family updated on plan of care and expected duration. Pain ea level reassessed. Patient is alert, oriented x 3, equal unlabored respirations, skin warm/dry/pink. Pt admitted to fourth floor, pt taken via stretcher per tech, tolerated well. No s/s of pain or discomfort noted at this time. Vital Signs: 00:09 BP 159 / 61; Pulse 82; Resp 19; Temp 98.1(A); Pulse Ox 95% on Nebulizer Mask; Weight lp1 74.84 kg; Height 5 ft. 5 in. (165.10 cm); Pain 0/10; 00:50 BP 137 / 57; Pulse 72; Resp 16; Pulse Ox 93% on 3 lpm NC; ea 01:14 BP 131 / 54; Pulse 64; Resp 13; Pulse Ox 94% on 3 lpm NC; ea 02:30 BP 146 / 64; Pulse 92; Resp 18; Pulse Ox 98% on R/A; ea 03:00 BP 126 / 63; Pulse 90; Resp 19; Pulse Ox 93% ; ea 04:13 BP 113 / 62; Pulse 74; Resp 13; Pulse Ox 93% on 3 lpm NC; ea 00:09 Body Mass Index 27.46 (74.84 kg, 165.10 cm) lp1 ED Course: 00:04 Patient arrived in ED. al2 00:05 Cassy Camilo, RN is Primary Nurse. ea 00:09 Triage completed. lp1 00:09 Arm band placed on left wrist. lp1 00:10 Patient has correct armband on for positive identification. Bed in low position. Call ea light in reach. Side rails up X2. 00:11 Ryan Rodriguez MD is Attending Physician. farida 00:15 Missed attempt(s): 22 gauge in left forearm. ea 00:20 Inserted saline lock: 22 gauge in left forearm, using aseptic technique. Blood ea collected. 01:19 Lianne Aponte MD is Hospitalizing Provider. farida 01:21 X-ray completed. Portable x-ray completed in exam room. Patient tolerated procedure kw well. 01:22 Chest Single View In Process Unspecified. EDMS 04:08 No provider procedures requiring assistance completed. Patient admitted, IV remains in ea place. Administered Medications: 01:39 Drug: SOLU-Medrol 125 mg Route: IVP; Site: left forearm; ea 01:54 Follow up: Response: No adverse reaction ea 01:39 Drug: Xopenex 2.5 mg Route: Inhalation; ea 01:51 Follow up: Response: No adverse reaction ea 01:53 Drug: AtroVENT Aerosol 0.5 mg Route: Inhalation; ea Outcome: 01:20 Decision to Hospitalize by Provider. farida 02:00 Instructed on the need for admit. ea 04:09 Admitted to Med/surg accompanied by tech, via stretcher, room 421, with oxygen, with ea chart, Report called to aRdha ESCALANTE 04:09 Condition: stable 04:18 Patient left the ED. ea Signatures: Dispatcher [employer] EDKY Ryan Rodriguez MD MD cha Whitley, Kimberlee kw Pena, Laura, RN RN lp1 Cassy Camilo RN RN ea Love, Angelica al2 Corrections: (The following items were deleted from the chart) 01:17 00:49 Derm: Skin is pink, warm \T\ dry. ea foreign
--- NOTE | 2018-06-22 01:21 | EDPHYS ---
Physician Documentation [facility] Name: Renée Souza Age: 78 yrs Sex: Female : 1940 Arrival Date: 06/22/2018 Time: 00:04 Bed 8 Private MD: ED Physician Ryan Rodriguez HPI: 06/22 00:13 This 78 yrs old Female presents to ER via EMS with complaints of Shortness Of farida Breath. 00:13 The patient has shortness of breath at rest, with light activity. Onset: The farida symptoms/episode began/occurred 2 day(s) ago. The patient's shortness of breath is aggravated by coughing, talking, walking. Associated signs and symptoms: Pertinent positives: non-productive cough. Severity of symptoms: At their worst the symptoms were moderate in the emergency department the symptoms have improved mildly. The patient has experienced similar episodes in the past, multiple times. Historical: - Allergies: 00:29 Aspirin; lp1 00:29 Codeine; lp1 00:29 Morphine; lp1 00:29 PENICILLINS; lp1 00:29 Keflex; lp1 00:29 Levaquin; lp1 00:29 HYDROCODONE; lp1 - Home Meds: 00:29 Aldactone 25 mg Oral tab 1 tab once daily [Active]; allopurinol 100 mg Oral tab 1 tab lp1 once daily [Active]; amiodarone 200 mg Oral tab 1 tab once daily [Active]; amlodipine 10 mg tab 1 tab once daily [Active]; Ativan 0.5 mg Oral tab [Active]; atorvastatin 10 mg oral tab nightly [Active]; benzonatate 100 mg oral cap every 8 hours for Cough [Active]; bisacodyl 10 mg Rectal supp 1 suppository once daily for Constipation [Active]; calcium acetate 667 mg oral cap 3 times per day [Active]; Colace 100 mg oral cap 1 cap 2 times per day for Constipation [Active]; duloxetine 20 mg oral cpDR daily [Active]; Eliquis 5 mg oral tab 1 tab 2 times per day [Active]; famotidine 20 mg Oral tab 1 tab once daily [Active]; galantamine 12 mg oral tab 1 tab 2 times per day [Active]; hydralazine 50 mg Oral tab three times a day [Active]; Lantus 100 unit/mL Sub-Q soln 25 unit twice a day [Active]; Lasix 40 mg Oral tab 1 tab once daily [Active]; levothyroxine 25 mcg tab 1 tab once daily [Active]; lisinopril 40 mg Oral tab 1 tab once daily [Active]; loperamide 2 mg Oral tab 2 tabs every 4 hours for Diarrhea [Active]; Lyrica 100 mg Oral 2 times per day [Active]; metoprolol tartrate 50 mg Oral tab 1 tab once daily [Active]; midodrine 5 mg oral tab twice a day [Active]; Novolog 100 unit/mL Sub-Q soln [Active]; - PMHx: 00:29 Pneumonia; Pleural effusion; dysphagia; Depression; VASCULAR DEMENTIA; ESRD; lp1 Dialysis-//TUE; Hypothyroidism; Hypertension; Anemia; Diabetes - NIDDM; Myocardial infarction; Atrial Fib; CHF; COPD; Peripheral venous insufficiency; Hyperlipidemia; - PSHx: 00:29 Pacemaker; lp1 - Immunization history:: Adult Immunizations up to date. - Social history:: Smoking status: Patient/guardian denies using tobacco, the patient reports quitting approximately 10 years ago. - Family history:: not pertinent. - Ebola Screening: : No symptoms or risks identified at this time. ROS: 00:13 Constitutional: Negative for fever, chills, and weight loss, Eyes: Negative for injury, farida pain, redness, and discharge, ENT: Negative for injury, pain, and discharge, Neck: Negative for injury, pain, and swelling, Cardiovascular: Negative for chest pain, palpitations, and edema, Abdomen/GI: Negative for abdominal pain, nausea, vomiting, diarrhea, and constipation, Back: Negative for injury and pain, : Negative for injury, bleeding, discharge, and swelling, MS/Extremity: Negative for injury and deformity, Skin: Negative for injury, rash, and discoloration, Neuro: Negative for headache, weakness, numbness, tingling, and seizure, Psych: Negative for depression, anxiety, suicide ideation, homicidal ideation, and hallucinations, Allergy/Immunology: Negative for hives, rash, and allergies, Endocrine: Negative for neck swelling, polydipsia, polyuria, polyphagia, and marked weight changes, Hematologic/Lymphatic: Negative for swollen nodes, abnormal bleeding, and unusual bruising. 00:13 Respiratory: Positive for cough, shortness of breath, wheezing, expiratory. Exam: 00:13 Constitutional: This is a well developed, well nourished patient who is awake, alert, farida and in no acute distress. Head/Face: Normocephalic, atraumatic. Eyes: Pupils equal round and reactive to light, extra-ocular motions intact. Lids and lashes normal. Conjunctiva and sclera are non-icteric and not injected. Cornea within normal limits. Periorbital areas with no swelling, redness, or edema. ENT: Nares patent. No nasal discharge, no septal abnormalities noted. Tympanic membranes are normal and external auditory canals are clear. Oropharynx with no redness, swelling, or masses, exudates, or evidence of obstruction, uvula midline. Mucous membranes moist. Neck: Trachea midline, no thyromegaly or masses palpated, and no cervical lymphadenopathy. Supple, full range of motion without nuchal rigidity, or vertebral point tenderness. No Meningismus. Chest/axilla: Normal chest wall appearance and motion. Nontender with no deformity. No lesions are appreciated. Cardiovascular: Regular rate and rhythm with a normal S1 and S2. No gallops, murmurs, or rubs. Normal PMI, no JVD. No pulse deficits. Abdomen/GI: Soft, non-tender, with normal bowel sounds. No distension or tympany. No guarding or rebound. No evidence of tenderness throughout. Back: No spinal tenderness. No costovertebral tenderness. Full range of motion. Female : Normal external genitalia. Skin: Warm, dry with normal turgor. Normal color with no rashes, no lesions, and no evidence of cellulitis. MS/ Extremity: Pulses equal, no cyanosis. Neurovascular intact. Full, normal range of motion. Neuro: Awake and alert, GCS 15, oriented to person, place, time, and situation. Cranial nerves II-XII grossly intact. Motor strength 5/5 in all extremities. Sensory grossly intact. Cerebellar exam normal. Normal gait. Psych: Awake, alert, with orientation to person, place and time. Behavior, mood, and affect are within normal limits. 00:13 Respiratory: moderate respiratory distress is noted, Respirations: labored breathing, that is mild, asymmetrical chest movement, is not seen, accessory muscle usage, that is mild. Vital Signs: 00:09 BP 159 / 61; Pulse 82; Resp 19; Temp 98.1(A); Pulse Ox 95% on Nebulizer Mask; Weight lp1 74.84 kg; Height 5 ft. 5 in. (165.10 cm); Pain 0/10; 00:50 BP 137 / 57; Pulse 72; Resp 16; Pulse Ox 93% on 3 lpm NC; ea 01:14 BP 131 / 54; Pulse 64; Resp 13; Pulse Ox 94% on 3 lpm NC; ea 02:30 BP 146 / 64; Pulse 92; Resp 18; Pulse Ox 98% on R/A; ea 03:00 BP 126 / 63; Pulse 90; Resp 19; Pulse Ox 93% ; ea 04:13 BP 113 / 62; Pulse 74; Resp 13; Pulse Ox 93% on 3 lpm NC; ea 00:09 Body Mass Index 27.46 (74.84 kg, 165.10 cm) lp1 MDM: 00:13 Data reviewed: vital signs, nurses notes, lab test result(s), EKG, radiologic studies, [facility] plain films. 00:16 Patient medically screened. [facility] 06/22 00:13 Order name: Basic Metabolic Panel [facility] 06/22 00:13 Order name: CBC with Diff [facility] 06/22 00:13 Order name: LFT's [facility] 06/22 00:13 Order name: Magnesium [facility] 06/22 00:13 Order name: NT PRO-BNP [facility] 06/22 00:13 Order name: PT-INR [facility] 06/22 00:13 Order name: Troponin (emerg Dept Use Only) [facility] 06/22 00:13 Order name: Lipase [facility] 06/22 00:13 Order name: Blood Culture Adult (2) [facility] 06/22 00:13 Order name: Procalcitonin [facility] 06/22 00:13 Order name: Urine Culture [facility] 06/22 00:54 Order name: Basic Metabolic Panel; Complete Time: 01:22 [facility] 06/22 00:54 Order name: Liver (Hepatic) Function; Complete Time: 01:22 [facility] 06/22 00:54 Order name: Troponin I; Complete Time: 01:22 [facility] 06/22 00:46 Order name: Chest Single View [facility] 06/22 00:54 Order name: NT PRO-BNP; Complete Time: 01:22 [facility] 06/22 00:54 Order name: Magnesium; Complete Time: 01:22 [facility] 06/22 00:54 Order name: Lipase; Complete Time: 01:22 [facility] 06/22 00:55 Order name: Procalcitonin; Complete Time: 02:37 [facility] 06/22 00:55 Order name: CBC with Automated Diff; Complete Time: 01:09 [facility] 06/22 00:55 Order name: Protime (+INR); Complete Time: 01:09 [facility] 06/22 00:55 Order name: Blood Culture [facility] 06/22 01:03 Order name: Blood Culture [facility] 06/22 01:22 Order name: Head Brain Wo Cont [facility] 06/22 01:30 Order name: Type and Screen [facility] 06/22 00:13 Order name: Cardiac monitoring; Complete Time: 00:35 [facility] 06/22 00:13 Order name: EKG - Nurse/Tech; Complete Time: 00:35 [facility] 06/22 00:13 Order name: IV Saline Lock; Complete Time: 00:35 [facility] 06/22 00:13 Order name: Labs collected and sent; Complete Time: 00:35 [facility] 06/22 00:13 Order name: O2 Per Protocol; Complete Time: 00:35 [facility] 06/22 00:13 Order name: O2 Sat Monitoring; Complete Time: 00:36 [facility] Administered Medications: 01:39 Drug: SOLU-Medrol 125 mg Route: IVP; Site: left forearm; ea 01:54 Follow up: Response: No adverse reaction ea 01:39 Drug: Xopenex 2.5 mg Route: Inhalation; ea 01:51 Follow up: Response: No adverse reaction ea 01:53 Drug: AtroVENT Aerosol 0.5 mg Route: Inhalation; ea Disposition: 06/22/18 01:20 Hospitalization ordered by Lianne Aponte for Inpatient Admission. Preliminary diagnosis are Dyspnea, Pleural effusion in conditions classified elsewhere, Unspecified kidney failure, End stage renal disease, Hypoxemia. - Bed requested for Telemetry/MedSurg (Inpatient). - Status is Inpatient Admission. ea - Condition is Fair. - Problem is new. - Symptoms have improved. UTI on Admission? No Signatures: Dispatcher [employer] EDOK Ryan Rodriguez MD MD cha Pena, Laura RN RN lp1 Danna Boone, RN RN Cassy Tovar RN RN ea Corrections: (The following items were deleted from the chart) 23 01:20 Hospitalization Ordered by Lianne Aponte MD for Inpatient Admission. Preliminary [facility] diagnosis is Dyspnea; Pleural effusion in conditions classified elsewhere; Unspecified kidney failure; End stage renal disease. Bed requested for Telemetry/MedSurg (Inpatient). Status is Inpatient Admission. Condition is Fair. Problem is new. Symptoms have improved. UTI on Admission? No. farida 03:43 01:23 06/22/2018 01:20 Hospitalization Ordered by Lianne Aponte MD for Inpatient cg Admission. Preliminary diagnosis is Dyspnea; Pleural effusion in conditions classified elsewhere; Unspecified kidney failure; End stage renal disease; Hypoxemia. Bed requested for Telemetry/MedSurg (Inpatient). Status is Inpatient Admission. Condition is Fair. Problem is new. Symptoms have improved. UTI on Admission? No. farida 04:12 00:13 Urine Dipstick-Ancillary ordered. farida ea 04:18 03:43 06/22/2018 01:20 Hospitalization Ordered by Lianne Aponte MD for Inpatient ea Admission. Preliminary diagnosis is Dyspnea; Pleural effusion in conditions classified elsewhere; Unspecified kidney failure; End stage renal disease; Hypoxemia. Bed requested for Telemetry/MedSurg (Inpatient). Status is Inpatient Admission. Condition is Fair. Problem is new. Symptoms have improved. UTI on Admission? No. cg
[2018-06-22] MEDS ORDERED: METHYLPREDNISOLONE 125 MG INJ ONE (01:41)
[2018-06-22] MEDS ORDERED: IPRATROPIUM BROM 0.5MG/2.5ML ONE (01:41)
[2018-06-22] MEDS ORDERED: LEVALBUTEROL 1.25 MG/3 ML NEB ONE (01:41)
[2018-06-22] MEDS ORDERED: ONDANSETRON 4 MG/2 ML VIAL IV PRN (02:39)
[2018-06-22] MEDS ORDERED: ACETAMINOPHEN 500 MG TAB PO PRN (02:39)
[2018-06-22] MEDS ORDERED: MORPHINE 2 MG/ML SYR IV PRN (02:39)
[2018-06-22 05:28] VITALS: BMI 27.4
--- NOTE | 2018-06-22 06:35 | RAD REPORT ---
EXAM DESCRIPTION: RAD - Chest Single View - 06/22/2018 1:22 am CLINICAL HISTORY: Difficulty breathing, cough and congestion, pneumonia history, pleural effusion hi story COMPARISON: May 13, 2018 TECHNIQUE: AP portable chest image was obtained 0051 hours . FINDINGS: Large pleural effusion present on the right. Patient likely has a small to moderate left p leural effusion as well. Heart is mostly obscured by the pleural fluid and lung base opacification. V ascular engorgement present. Dialysis catheter is in place. No pneumothorax seen. Pacemaker is in evan ce. No acute bony abnormality seen. No acute aortic findings suspected. IMPRESSION: Large right pleural effusion new from May 13 imaging. Left pleural effusion is present and may be slightly larger than [facility]. Heart is mostly obscured. Vasculature is prominent supporting failure or volume overload. Pneumonia in either lung base can be masked by the pleural fluid.
[2018-06-22] MEDS ORDERED: MORPHINE 4 MG/ML SYR IV PRN (07:39)
[2018-06-22] MEDS ORDERED: ONDANSETRON 4 MG (ODT) TAB PO PRN (08:07)
[2018-06-22] MEDS ORDERED: LOPERAMIDE HCL 2 MG CAPSULE PO PRN (08:07)
[2018-06-22] MEDS ORDERED: BENZONATATE 100 MG CAP PO PRN (08:07)
[2018-06-22] MEDS ORDERED: BISACODYL 10 MG RECTAL SUPP PR PRN (08:07)
--- NOTE | 2018-06-22 08:09 | P.HP ---
Certification for Inpatient Patient admitted to: Inpatient With expected LOS: >2 Midnights Patient will require the following post-hospital care: None Practitioner: I am a practitioner with admitting privileges, knowledge of patient current condition, hospital course, and medical plan of care. Services: Services provided to patient in accordance with Admission requirements found in Title 42 Section 412.3 of the Code of Federal Regulations Patient History Date of Service: 06/22/18 Reason for admission: Chest pain/shortness of breath History of Present Illness: Patient is a 78-year-old female came to the hospital with difficulty breathing. Patient has shortness of breath with light activity. It got worse for the last couple of days. Also having a nonproductive cough. Came into the emergency room and her workup revealed bilateral pleural effusion. The right pleural effusion was seen on last admission. However, at that time effusion started clearing up so patient did not have a thoracentesis. This pleural effusion is larger. Hold because of her shortness of breath she may benefit from thoracentesis. Will get Pulmonary consulted. Nephrology consulted for hemodialysis. Admitted for further evaluation. Allergies Penicillins Adverse Reaction (Intermediate, Verified 09/01/11 18:18) Hives aspirin Adverse Reaction (Mild, Verified 09/01/11 18:20) Itching codeine [Codeine] Adverse Reaction (Mild, Verified 09/01/11 18:20) Nausea/Vomiting hydrocodone [Hydrocodone] Adverse Reaction (Mild, Verified 09/01/11 18:19) Rash levofloxacin [From Levaquin] Adverse Reaction (Mild, Verified 09/01/11 18:19) Itching Home Medications: Acetaminophen [Tylenol] 650 mg PO Q6HP PRN 05/11/18 Allopurinol [Zyloprim*] 100 mg PO DAILY 05/11/18 Amiodarone HCl [Cordarone*] 200 mg PO DAILY 05/11/18 Amlodipine Besylate [Norvasc] 10 mg PO DAILY 05/11/18 Apixaban [Eliquis] 5 mg PO BID 05/11/18 Atorvastatin Calcium [Lipitor*] 10 mg PO BEDTIME 05/11/18 Bisacodyl [Biscolax] 10 mg RC DAILYPRN PRN 05/11/18 Calcium Acetate [Phoslo*] 1 cap PO TIDWM 05/11/18 Docusate [Colace Cap*] 100 mg PO BID 05/11/18 Duloxetine HCl [Cymbalta] 20 mg PO DAILY 05/11/18 Famotidine 20 mg PO DAILY 05/11/18 Furosemide [Lasix] 40 mg PO BID 05/11/18 Galantamine HBr [Razadyne] 12 mg PO BID 05/11/18 Hydralazine HCl [Apresoline] 50 mg PO TID 05/11/18 Insulin Aspart [Novolog Flexpen] See Protocol SQ ACHS 05/11/18 Insulin Glargine,Hum.rec.anlog [Lantus Solostar] 25 unit SQ BIDWM 05/11/18 LORazepam [Ativan*] 0.5 mg PO T,TH,S 05/11/18 Levothyroxine Sodium 25 mcg PO DAILY 05/11/18 Lisinopril 40 mg PO DAILY 05/11/18 Loperamide HCl [Imodium A-D] 4 mg PO Q4HP PRN 05/11/18 Metoprolol Succinate 50 mg PO DAILY 05/11/18 Midodrine HCl [Proamatine*] 5 mg PO T,TH,S 05/11/18 Ondansetron HCl [Zofran] 4 mg PO Q8HP PRN 05/11/18 Polyethylene Glycol 3350 [Miralax] 17 gm PO Q8HP 05/11/18 Pregabalin [Lyrica] 100 mg PO BID 05/11/18 Spironolactone [Aldactone*] 25 mg PO DAILY 05/11/18 Benzonatate [Tessalon Perle*] 100 mg PO Q8HP PRN 06/22/18 - Past Medical/Surgical History Has patient received pneumonia vaccine in the past: Yes Diabetic: Yes -: IDDM -: Atrial fibrillation -: ESRD, HD -: Hemodialysis TThS -: Peripheral Venous Insufficiency -: HTN -: Vascular Dementia -: CHF -: Hyperlipidemia -: pneumonia -: Afib -: COPD, depression, hypothyroidism, anemia, -: tessio -: pacemaker - Family History Father Medical History: Lung disease Mother Medical History: Lung disease - Social History Smoking Status: Former smoker Alcohol use: No CD- Drugs: No Caffeine use: Yes Place of Residence: [facility] Review of Systems is unable to be obtained Physical Examination - Vital Signs Temperature: 98.1 F Blood Pressure: 113/62 Pulse: 74 Respirations: 24 Pulse Ox (%): 92 - Physical Exam General: Alert, In no apparent distress, Oriented x2, Confused HEENT: Atraumatic, PERRLA, Mucous membr. moist/pink, EOMI, Sclerae nonicteric Neck: Supple, 2+ carotid pulse no bruit, No LAD, Without JVD or thyroid abnormality Respiratory: Diminished, Crackles/rales Cardiovascular: Regular rate/rhythm, Normal S1 S2, Systolic murmur Gastrointestinal: Normal bowel sounds, Soft and benign, Non-distended, No tenderness Musculoskeletal: No clubbing, No tenderness, Swelling Integumentary: No rashes Neurological: Normal gait, Normal speech, Normal strength at 5/5 x4 extr, Normal tone, Sensation intact, Cranial nerves 3-12 intact, Normal affect Lymphatics: No axilla or inguinal lymphadenopathy - Studies Laboratory Data (last 24 hrs) 06/22/18 00:40: PT 17.2 H, INR 1.45 06/22/18 00:40: WBC 6.6, Hgb 8.8 L, Hct 27.7 L, Plt Count 209 06/22/18 00:40: Sodium 138, Potassium 4.7, BUN 38 H, Creatinine 4.82 H, Glucose 139 H, Magnesium 2.3, Total Bilirubin 0.3, AST 13 L, ALT 17, Alkaline Phosphatase 112, Troponin I < 0.02, Lipase 273 06/22/18 00:13: PT Cancelled, INR Cancelled 06/22/18 00:13: WBC Cancelled, Hgb Cancelled, Hct Cancelled, Plt Count Cancelled 06/22/18 00:13: Sodium Cancelled, Potassium Cancelled, BUN Cancelled, Creatinine Cancelled, Glucose Cancelled, Magnesium Cancelled, Total Bilirubin Cancelled, AST Cancelled, ALT Cancelled, Alkaline Phosphatase Cancelled, Lipase Cancelled Microbiology Data (last 24 hrs): 06/22/18 00:40 Blood - Blood Anaerobic Blood Culture - Final Assessment & Plan - Problems (Diagnosis) (1) CHF (congestive heart failure) Onset Date: 05/11/18 Current Visit: No Status: Acute (2) End stage renal disease Onset Date: 05/11/18 Current Visit: No Status: Acute (3) Pleural effusion, right Onset Date: 05/11/18 Current Visit: No Status: Acute (4) UTI (urinary tract infection) Onset Date: 05/11/18 Current Visit: No Status: Acute - Plan Plan: 1. Patient may benefit from thoracentesis. Pulmonary consultation. Bilateral decubitus films. Continue with gentle diuresing as well. Patient's fluid from the thoracentesis will need to be sent off as well for multiple studies to see if it is truly transudative. Also probably need cytology sent off. Clinically patient is also slightly confused. She will be admitted to the hospital with Pulmonary and Nephrology consultation. Await recommendations. - Advance Directives Does patient have a Living Will: No Does patient have a Durable POA for Healthcare: No - Code Status/Comfort Care Code Status Assessed: Yes Code Status: Full Code Critical Care: No Time Spent Managing PTS Care (In Minutes): 50
--- NOTE | 2018-06-22 08:15 | EKG ---
Test Date: 2018-06-22 Test Time: 00:13:03 Master Police Detective: AVTAR MEASUREMENT RESULTS: Intervals: Rate: 67 [place]: QRSD: 100 QT: 406 QTc: 429 [place]: P: [place]: QRS: 38 T: 21 INTERPRETIVE STATEMENTS: AV dual-paced complexes Cannot rule out Anterior infarct, age undetermined Abnormal ECG Compared to ECG 09/02/2011 06:36:03 Sinus arrhythmia no longer present Electronically Signed On 06-22-18 08:09:00 [employer] by Jaun Yoder
[2018-06-22] MEDS: LEVOTHYROXINE SOD 0.025 MG TAB PO SCH (09:00)
[2018-06-22] MEDS ORDERED: POLYETHYL GLY 3350 17 GM/DOSE PO PRN (09:00)
--- NOTE | 2018-06-22 10:19 | RAD REPORT ---
EXAM DESCRIPTION: RAD - Chest Lateral Decubitus - 06/22/2018 9:12 am CLINICAL HISTORY: Pleural effusion COMPARISON: June 22 TECHNIQUE: Right and left lateral decubitus films were obtained. FINDINGS: Small layering left pleural effusion is present. Patient has a large right pleural effusio n but only partially layers. The volume of pleural fluid is felt to be greater than the amount of lay ering pleural fluid which could indicate at least partial loculation. IMPRESSION: There is layering of the right pleural effusion; however, the volume of fluid appears to be greater than the layering component. This could indicate at least partial loculation. Small layering left pleural effusion.
[2018-06-22] MEDS: DULOXETINE 20 MG CAP PO SCH (10:27)
[2018-06-22] MEDS: ALLOPURINOL 100 MG TAB PO SCH (10:28)
[2018-06-22] MEDS: DOCUSATE NA 100 MG CAP PO SCH ×2 (10:28→21:08)
[2018-06-22] MEDS: LISINOPRIL 20 MG TAB PO SCH (10:28)
[2018-06-22] MEDS: HYDRALAZINE HCL 25 MG TABLET PO SCH ×3 (10:28→21:09)
[2018-06-22] MEDS: AMIODARONE HCL 200 MG TAB PO SCH (10:28)
[2018-06-22] MEDS: AMLODIPINE 10 MG TAB PO SCH (10:29)
[2018-06-22] MEDS: FAMOTIDINE 20 MG TAB PO SCH (10:29)
[2018-06-22] MEDS: FUROSEMIDE 40 MG TABLET PO SCH ×2 (10:29→16:55)
[2018-06-22] MEDS: LORAZEPAM 0.5 MG TABLET PO SCH (10:29)
[2018-06-22] MEDS: GALANTAMINE 4 MG TAB PO SCH ×2 (10:30→21:09)
[2018-06-22] MEDS: METOPROLOL XL 50 MG TAB PO SCH (10:30)
[2018-06-22] MEDS: MIDODRINE HCL 5 MG TABLET PO SCH (10:33)
[2018-06-22] MEDS: SPIRONOLACTONE 25 MG TABLET PO SCH (10:33)
[2018-06-22] MEDS: PREGABALIN 50 MG CAP PO SCH ×2 (10:33→21:09)
[2018-06-22] MEDS: CA ACETATE 667 MG CAP PO SCH ×2 (12:00→16:55)
[2018-06-22 12:06] LABS: Bilirubin Total 0.3 mg/dL (0.2-1.0); Magnesium 2.2 mg/dL (1.8-2.4); Phosphorus 5.9 mg/dL (2.5-4.9); Potassium 5.3 mmol/L (3.5-5.1); Protein, Total 6.8 g/dL (6.4-8.2)
[2018-06-22 12:22] LABS: Absolute Lymphocytes (CBC) 0.2 K/uL (0.7-4.9); Absolute Neutrophil 4.3 K/uL (1.8-8.0); Basophils % 0.2 % (0-1.3); Hematocrit 27.8 % (36.0-45.0); Lymphocytes % 4.5 % (15.3-44.8); MPV 8.9 fL (7.6-11.3); Monocytes % 0.9 % (3.3-12.3); RBC Red Blood Cell Count 2.65 M/uL (3.86-4.86)
[2018-06-22 13:18] LABS: Anisocytosis 1+; Blood Morphology Comment NOTED (NOT SEEN); Platelet Estimate ADEQ; Urine White Blood Cell Casts OK
--- NOTE | 2018-06-22 14:36 | P.CNS ---
Date of Consult: 06/22/18 Reason for Consult: Shortness of breath pleural effusion Chief Complaint: Chest pain/shortness of breath History of Present Illness: Patient is 78 years of age admitted with sudden onset of shortness of breath patient is on chronic hemodialysis denies any fever chills cough or chest pain patient was found to have a significant effusion on the right side patient is on anticoagulation feels much better today Allergies Penicillins Adverse Reaction (Intermediate, Verified 09/01/11 18:18) Hives aspirin Adverse Reaction (Mild, Verified 09/01/11 18:20) Itching codeine [Codeine] Adverse Reaction (Mild, Verified 09/01/11 18:20) Nausea/Vomiting hydrocodone [Hydrocodone] Adverse Reaction (Mild, Verified 09/01/11 18:19) Rash levofloxacin [From Levaquin] Adverse Reaction (Mild, Verified 09/01/11 18:19) Itching Home Medications: Acetaminophen [Tylenol] 650 mg PO Q6HP PRN 05/11/18 Allopurinol [Zyloprim*] 100 mg PO DAILY 05/11/18 Amiodarone HCl [Cordarone*] 200 mg PO DAILY 05/11/18 Amlodipine Besylate [Norvasc] 10 mg PO DAILY 05/11/18 Apixaban [Eliquis] 5 mg PO BID 05/11/18 Atorvastatin Calcium [Lipitor*] 10 mg PO BEDTIME 05/11/18 Bisacodyl [Biscolax] 10 mg RC DAILYPRN PRN 05/11/18 Calcium Acetate [Phoslo*] 1 cap PO TIDWM 05/11/18 Docusate [Colace Cap*] 100 mg PO BID 05/11/18 Duloxetine HCl [Cymbalta] 20 mg PO DAILY 05/11/18 Famotidine 20 mg PO DAILY 05/11/18 Furosemide [Lasix] 40 mg PO BID 05/11/18 Galantamine HBr [Razadyne] 12 mg PO BID 05/11/18 Hydralazine HCl [Apresoline] 50 mg PO TID 05/11/18 Insulin Aspart [Novolog Flexpen] See Protocol SQ ACHS 05/11/18 Insulin Glargine,Hum.rec.anlog [Lantus Solostar] 25 unit SQ BIDWM 05/11/18 LORazepam [Ativan*] 0.5 mg PO T,TH,S 05/11/18 Levothyroxine Sodium 25 mcg PO DAILY 05/11/18 Lisinopril 40 mg PO DAILY 05/11/18 Loperamide HCl [Imodium A-D] 4 mg PO Q4HP PRN 05/11/18 Metoprolol Succinate 50 mg PO DAILY 05/11/18 Midodrine HCl [Proamatine*] 5 mg PO T,TH,S 05/11/18 Ondansetron HCl [Zofran] 4 mg PO Q8HP PRN 05/11/18 Polyethylene Glycol 3350 [Miralax] 17 gm PO Q8HP 05/11/18 Pregabalin [Lyrica] 100 mg PO BID 05/11/18 Spironolactone [Aldactone*] 25 mg PO DAILY 05/11/18 Benzonatate [Tessalon Perle*] 100 mg PO Q8HP PRN 06/22/18 - Past Medical/Surgical History Diabetic: Yes -: IDDM -: Atrial fibrillation -: ESRD, HD -: Hemodialysis TThS -: Peripheral Venous Insufficiency -: HTN -: Vascular Dementia -: CHF -: Hyperlipidemia -: pneumonia -: Afib -: COPD, depression, hypothyroidism, anemia, -: tessio -: pacemaker - Family History Father Medical History: Lung disease Mother Medical History: Lung disease - Social History Smoking Status: Former smoker Alcohol use: No CD- Drugs: No Caffeine use: Yes Place of Residence: [facility] Review of Systems 10-point ROS is otherwise unremarkable General: Weakness Respiratory: Shortness of Breath Physical Examination Temp Pulse Resp BP Pulse Ox 98.5 F 83 16 166/70 H 90 L 06/22/18 12:00 06/22/18 12:00 06/22/18 12:00 06/22/18 12:00 06/22/18 12:00 General: Alert, Oriented x3 HEENT: Atraumatic Neck: Supple Respiratory: Diminished (Diminished air entry on the right side with no wheezing or crackles) Cardiovascular: No edema, Regular rate/rhythm, Normal S1 S2 Gastrointestinal: Normal bowel sounds, Soft and benign, Non-distended Musculoskeletal: No clubbing, No swelling Laboratory Data (last 24 hrs) 06/22/18 00:40: PT 17.2 H, INR 1.45 06/22/18 00:40: WBC 6.6, Hgb 8.8 L, Hct 27.7 L, Plt Count 209 06/22/18 00:40: Sodium 138, Potassium 4.7, BUN 38 H, Creatinine 4.82 H, Glucose 139 H, Magnesium 2.3, Total Bilirubin 0.3, AST 13 L, ALT 17, Alkaline Phosphatase 112, Troponin I < 0.02, Lipase 273 06/22/18 00:13: PT Cancelled, INR Cancelled 06/22/18 00:13: WBC Cancelled, Hgb Cancelled, Hct Cancelled, Plt Count Cancelled 06/22/18 00:13: Sodium Cancelled, Potassium Cancelled, BUN Cancelled, Creatinine Cancelled, Glucose Cancelled, Magnesium Cancelled, Total Bilirubin Cancelled, AST Cancelled, ALT Cancelled, Alkaline Phosphatase Cancelled, Lipase Cancelled - Problems (1) Pleural effusion, right Onset Date: 05/11/18 Current Visit: No Status: Acute Plan: Patient is [age] years of age admitted with shortness of breath she does have worsening right-sided pleural effusion with does later on decubitus x-ray over there is no evidence of sepsis of white count is normal there is no fever denies any chest pain patient has chronic renal failure on dialysis cultures are pending no fever patient is already anti coagulated as she is feeling better doubt that this is sepsis probably related to her renal failure probably has some underlying diastolic dysfunction I have ordered repeat chest x-ray tomorrow may need a thoracentesis if she has a significant effusion and patient is symptomatic otherwise follow up in my clinic
[2018-06-22] MEDS ORDERED: NA CHLORIDE 0.9% 1,000 ML IV PRN (15:06)
[2018-06-22] MEDS ORDERED: MANNITOL 25% 12.5 GM/50 ML VIAL IV PRN (15:06)
--- NOTE | 2018-06-22 15:10 | P.CNS ---
Date of Consult: 06/22/18 Reason for Consult: ESRD Requesting Physician: Kayla Avila Chief Complaint: Chest pain/shortness of breath History of Present Illness: Patient is a 78-year-old female came to the hospital with difficulty breathing. Patient has shortness of breath with light activity. It got worse for the last couple of days. Also having a nonproductive cough. Came into the emergency room and her workup revealed bilateral pleural effusion. The right pleural effusion was seen on last admission. However, at that time effusion started clearing up so patient did not have a thoracentesis. This pleural effusion is larger. Hold because of her shortness of breath she may benefit from thoracentesis. Will get Pulmonary consulted. Nephrology consulted for hemodialysis. Admitted for further evaluation. 00:13 This 78 yrs old Female presents to ER via EMS with complaints of Shortness Of farida Breath. 00:13 The patient has shortness of breath at rest, with light activity. Onset: The farida symptoms/episode began/occurred 2 day(s) ago. The patient's shortness of breath is aggravated by coughing, talking, walking. Associated signs and symptoms: Pertinent positives: non-productive cough. Severity of symptoms: At their worst the symptoms were moderate in the emergency department the symptoms have improved mildly. The patient has experienced similar episodes in the past, multiple times. Allergies Penicillins Adverse Reaction (Intermediate, Verified 09/01/11 18:18) Hives aspirin Adverse Reaction (Mild, Verified 09/01/11 18:20) Itching codeine [Codeine] Adverse Reaction (Mild, Verified 09/01/11 18:20) Nausea/Vomiting hydrocodone [Hydrocodone] Adverse Reaction (Mild, Verified 09/01/11 18:19) Rash levofloxacin [From Levaquin] Adverse Reaction (Mild, Verified 09/01/11 18:19) Itching Home medications list reviewed: Yes Home Medications: Acetaminophen [Tylenol] 650 mg PO Q6HP PRN 05/11/18 Allopurinol [Zyloprim*] 100 mg PO DAILY 05/11/18 Amiodarone HCl [Cordarone*] 200 mg PO DAILY 05/11/18 Amlodipine Besylate [Norvasc] 10 mg PO DAILY 05/11/18 Apixaban [Eliquis] 5 mg PO BID 05/11/18 Atorvastatin Calcium [Lipitor*] 10 mg PO BEDTIME 05/11/18 Bisacodyl [Biscolax] 10 mg RC DAILYPRN PRN 05/11/18 Calcium Acetate [Phoslo*] 1 cap PO TIDWM 05/11/18 Docusate [Colace Cap*] 100 mg PO BID 05/11/18 Duloxetine HCl [Cymbalta] 20 mg PO DAILY 05/11/18 Famotidine 20 mg PO DAILY 05/11/18 Furosemide [Lasix] 40 mg PO BID 05/11/18 Galantamine HBr [Razadyne] 12 mg PO BID 05/11/18 Hydralazine HCl [Apresoline] 50 mg PO TID 05/11/18 Insulin Aspart [Novolog Flexpen] See Protocol SQ ACHS 05/11/18 Insulin Glargine,Hum.rec.anlog [Lantus Solostar] 25 unit SQ BIDWM 05/11/18 LORazepam [Ativan*] 0.5 mg PO T,,S 05/11/18 Levothyroxine Sodium 25 mcg PO DAILY 05/11/18 Lisinopril 40 mg PO DAILY 05/11/18 Loperamide HCl [Imodium A-D] 4 mg PO Q4HP PRN 05/11/18 Metoprolol Succinate 50 mg PO DAILY 05/11/18 Midodrine HCl [Proamatine*] 5 mg PO ,,S 05/11/18 Ondansetron HCl [Zofran] 4 mg PO Q8HP PRN 05/11/18 Polyethylene Glycol 3350 [Miralax] 17 gm PO Q8HP 05/11/18 Pregabalin [Lyrica] 100 mg PO BID 05/11/18 Spironolactone [Aldactone*] 25 mg PO DAILY 05/11/18 Benzonatate [Tessalon Perle*] 100 mg PO Q8HP PRN 06/22/18 - Past Medical/Surgical History Diabetic: Yes -: IDDM -: Atrial fibrillation -: ESRD, HD -: Hemodialysis TThS -: Peripheral Venous Insufficiency -: HTN -: Vascular Dementia -: CHF -: Hyperlipidemia -: pneumonia -: Afib -: COPD, depression, hypothyroidism, anemia, -: tessio -: pacemaker - Family History Father Medical History: Lung disease Mother Medical History: Lung disease - Social History Smoking Status: Former smoker Alcohol use: No CD- Drugs: No Caffeine use: Yes Place of Residence: [place] Review of Systems 10-point ROS is otherwise unremarkable General: Weakness, Malaise Respiratory: SOB with Excertion Cardiovascular: Edema Physical Examination Temp Pulse Resp BP Pulse Ox 98.5 F 83 16 166/70 H 90 L 06/22/18 12:00 06/22/18 12:00 06/22/18 12:00 06/22/18 12:00 06/22/18 12:00 General: Oriented x3, Cooperative, Mild distress Neck: Supple, JVD distended Respiratory: Diminished Cardiovascular: Regular rate/rhythm, No rubs, Edema Gastrointestinal: Soft and benign, Non-distended Musculoskeletal: No clubbing, No contractures Integumentary: No rashes, No cyanosis Neurological: Normal speech Laboratory Data (last 24 hrs) 06/22/18 00:40: PT 17.2 H, INR 1.45 06/22/18 00:40: WBC 6.6, Hgb 8.8 L, Hct 27.7 L, Plt Count 209 06/22/18 00:40: Sodium 138, Potassium 4.7, BUN 38 H, Creatinine 4.82 H, Glucose 139 H, Magnesium 2.3, Total Bilirubin 0.3, AST 13 L, ALT 17, Alkaline Phosphatase 112, Troponin I < 0.02, Lipase 273 06/22/18 00:13: PT Cancelled, INR Cancelled 06/22/18 00:13: WBC Cancelled, Hgb Cancelled, Hct Cancelled, Plt Count Cancelled 06/22/18 00:13: Sodium Cancelled, Potassium Cancelled, BUN Cancelled, Creatinine Cancelled, Glucose Cancelled, Magnesium Cancelled, Total Bilirubin Cancelled, AST Cancelled, ALT Cancelled, Alkaline Phosphatase Cancelled, Lipase Cancelled Imagings Data: EXAM DESCRIPTION: RAD - Chest Single View - 06/22/2018 1:22 am CLINICAL HISTORY: Difficulty breathing, cough and congestion, pneumonia history , pleural effusion history COMPARISON: May 13, 2018 TECHNIQUE: AP portable chest image was obtained 0051 hours . FINDINGS: Large pleural effusion present on the right. Patient likely has a small to moderate left pleural effusion as well. Heart is mostly obscured by the pleural fluid and lung base opacification. Vascular engorgement present. Dialysis catheter is in place. No pneumothorax seen. Pacemaker is in place. No acute bony abnormality seen. No acute aortic findings suspected. IMPRESSION: Large right pleural effusion new from May 8 imaging. Left pleural effusion is present and may be slightly larger than May imaging. Heart is mostly obscured. Vasculature is prominent supporting failure or volume overload. Pneumonia in either lung base can be masked by the pleural fluid. Conclusions/Impression: A/ ESRD on HD. Hyperkalemia. HTN with CKD/ CHF. A/C Diastolic CHF. Anemia in CKD. PER/ Secondary HyperPTH. P/ Continue current POC and Medications. Arrange for acute HD with UF. Give Epo. Restart home medications as indicated. No NSAIDs. AM labs. Daily weight. Thank you kindly for the consultation.
[2018-06-22] MEDS ORDERED: ALBUMIN HUMAN 25% 50 ML IV SCH (16:00)
[2018-06-22] MEDS: EPOETIN ALFA 10,000 UNIT/ML VIAL IV SCH (17:20)
[2018-06-22] MEDS: INSULIN GLARGINE 100 UNITS/ML SQ SCH (17:31)
[2018-06-22] MEDS: ATORVASTATIN 10 MG TAB PO SCH (21:08)
[2018-06-23] MEDS: LEVOTHYROXINE SOD 0.025 MG TAB PO SCH (06:30)
[2018-06-23] MEDS: SPIRONOLACTONE 25 MG TABLET PO SCH (09:00)
--- NOTE | 2018-06-23 09:01 | RAD REPORT ---
EXAM DESCRIPTION: RAD - Chest Pa And Lat (2 Views) - 06/23/2018 8:56 am CLINICAL HISTORY: Pleural effusion Chest pain. COMPARISON: Chest Single View dated 06/22/2018; Chest Pa And Lat (2 Views) dated 05/13/2018; Chest Pa And Lat (2 Views) dated 05/09/2018; CHEST SINGLE VIEW dated 09/01/2011 FINDINGS: Moderate to large right and small left pleural effusion again noted, slightly diminished s addison comparative study. The heart is enlarged with a pacer device present. Right-sided venous cathete r is unchanged. Degenerative changes are present both shoulders.
[2018-06-23] MEDS: INSULIN GLARGINE 100 UNITS/ML SQ SCH ×2 (09:29→17:49)
[2018-06-23] MEDS: CA ACETATE 667 MG CAP PO SCH ×3 (09:29→17:50)
[2018-06-23] MEDS: AMIODARONE HCL 200 MG TAB PO SCH (09:30)
[2018-06-23] MEDS: AMLODIPINE 10 MG TAB PO SCH (09:30)
[2018-06-23] MEDS: DULOXETINE 20 MG CAP PO SCH (09:30)
[2018-06-23] MEDS: PREGABALIN 50 MG CAP PO SCH ×2 (09:30→20:50)
[2018-06-23] MEDS: LISINOPRIL 20 MG TAB PO SCH (09:30)
[2018-06-23] MEDS: DOCUSATE NA 100 MG CAP PO SCH ×2 (09:30→20:50)
[2018-06-23] MEDS: GALANTAMINE 4 MG TAB PO SCH ×2 (09:30→20:49)
[2018-06-23] MEDS: METOPROLOL XL 50 MG TAB PO SCH (09:31)
[2018-06-23] MEDS: FAMOTIDINE 20 MG TAB PO SCH (09:31)
[2018-06-23] MEDS: FUROSEMIDE 40 MG TABLET PO SCH ×2 (09:31→17:50)
[2018-06-23] MEDS: HYDRALAZINE HCL 25 MG TABLET PO SCH ×3 (09:31→20:49)
[2018-06-23] MEDS: ALLOPURINOL 100 MG TAB PO SCH (09:31)
--- NOTE | 2018-06-23 12:43 | P.PN ---
Subjective Date of Service: 06/23/18 Chief Complaint: Right-sided pleural effusion Patient is feeling fine denies any shortness of breath chest pain cough congestion still has a significant pleural effusion on the right side Review of Systems General: Weakness Respiratory: Shortness of Breath Physical Examination - Vital Signs Temperature: 99.2 F Blood Pressure: 121/57 Pulse: 70 Respirations: 18 Pulse Ox (%): 90 - Physical Exam General: Alert, In no apparent distress, Oriented x3 Respiratory: Diminished (Diminished in the right base) Cardiovascular: No edema, Irregular heart rate/rhythm - Studies Microbiology Data (last 24 hrs): 06/22/18 00:40 Blood - Blood Anaerobic Blood Culture - Final Assessment & Plan - Problems (Diagnosis) (1) Pleural effusion, right Onset Date: 05/11/18 Current Visit: No Status: Acute Plan: Patient is 78 years of age admitted with shortness of breath she is significant effusion on the right side the from by P and lateral chest x-ray of ordered a CT scan of the chest without contrast patient has AFib and heart anticoagulants was stopped 1 dose of Lovenox possible thoracentesis ambulate patient cultures all negative vital signs stable room-air sat is only 88%
[2018-06-23] MEDS: ENOXAPARIN 30 MG/0.3 ML SQ SCH (13:07)
--- NOTE | 2018-06-23 13:12 | P.PN ---
Subjective Date of Service: 06/23/18 Chief Complaint: Right-sided pleural effusion Patient seen and examined at bedside with RN. Chart reviewed. Patient did not have any complaints to offer at this time. Remained stable overnight. X-ray this morning with no change in pleural effusion. Case discussed with pulmonology. Will monitor over the weekend and possible CT-guided thoracentesis on Tuesday with radiology if no improvement Review of Systems 10-point ROS is otherwise unremarkable Physical Examination - Vital Signs Temperature: 99.2 F Blood Pressure: 121/57 Pulse: 70 Respirations: 18 Pulse Ox (%): 90 - Physical Exam General: Alert, In no apparent distress HEENT: Atraumatic, PERRLA, EOMI Neck: Supple, JVD not distended Respiratory: Normal air movement, Diminished (Right lower lung base), Expiratory wheezes, Inspiratory wheezes Cardiovascular: Regular rate/rhythm, Normal S1 S2 Gastrointestinal: Normal bowel sounds, No tenderness Musculoskeletal: No tenderness Integumentary: No rashes Neurological: Normal speech, Normal tone, Normal affect Lymphatics: No axilla or inguinal lymphadenopathy - Studies Microbiology Data (last 24 hrs): 06/22/18 00:40 Blood - Blood Anaerobic Blood Culture - Final Medications List Reviewed: Yes Assessment And Plan - Current Problems (Diagnosis) (1) Pleural effusion, right Onset Date: 05/11/18 Current Visit: No Status: Acute Plan: Chronic pleural effusion now and getting worse. Secondary to volume overload -chest x-ray this morning with no improvement or worsening -pulmonology consulted appreciated recommendations at this time -recommends that patient can be monitor for next 48-72 hr -if no change higher can be consulted for possible CT-guided thoracentesis -will follow up with patient here in the hospital and close monitoring -currently receiving hemodialysis and Lasix for for volume overload (2) CHF (congestive heart failure) Onset Date: 05/11/18 Current Visit: No Status: Chronic Qualifiers: Heart failure type: diastolic Heart failure chronicity: chronic Qualified Code(s): I50.32 - Chronic diastolic (congestive) heart failure (3) End stage renal disease Onset Date: 05/11/18 Current Visit: No Status: Chronic - Plan Pending clinical improvement at this time. Will monitor patient for next 24-48 hr for improvement in her failure of fusion. If no improvement noted will consult IR for possible CT-guided thoracentesis. Pulmonology on board agrees with plan. Discharge Plan: Home Plan to discharge in: Greater than 2 days - Code Status/Comfort Care Code Status Assessed: Yes Critical Care: No
--- NOTE | 2018-06-23 14:16 | RAD REPORT ---
EXAM DESCRIPTION: CT - Thorax Wo Con CLINICAL HISTORY: Chest pain Right-sided pleural effusion COMPARISON: Thorax Wo Con dated 05/09/2018 FINDINGS: A small left and a moderate right pleural effusion is seen. Significant atelectasis of the right lower lobe is present. Mild atelectasis of the posterior left lower lobe noted. No focal infil trate typical of pneumonia seen. No pneumothorax. Aortic atherosclerosis. No axillary, mediastinal or hilar adenopathy. No concerning bony finding. No gross upper abdominal finding. All CT scans are performed using dose optimization technique as appropriate and may include automated exposure control or mA/KV adjustment according to patient size. IMPRESSION: Small left and moderate right pleural effusion with compressive atelectasis in both lung bases.
--- NOTE | 2018-06-23 20:02 | P.PN ---
Date of Service: 06/23/18 Vital Signs Temp Pulse Resp BP Pulse Ox 98.4 F 70 18 121/57 L 94 06/23/18 16:00 06/23/18 17:50 06/23/18 16:00 06/23/18 17:50 06/23/18 16:00 Medications Acetaminophen (Tylenol -Extra Strength) 500 mg PO Q6H PRN PRN Reason: [id number] Stop: 07/22/18 02:40 Allopurinol (Zyloprim) 100 mg PO DAILY [facility] Stop: 07/22/18 09:01 Last Admin: 06/23/18 09:31 Dose: 100 mg Amiodarone HCl (Cordarone Tab) 200 mg PO DAILY [facility] Stop: 07/22/18 09:01 Last Admin: 06/23/18 09:30 Dose: 200 mg Amlodipine Besylate (Norvasc) 10 mg PO DAILY [facility] Stop: 07/22/18 09:01 Last Admin: 06/23/18 09:30 Dose: 10 mg Atorvastatin Calcium (Lipitor) 10 mg PO BEDTIME [facility] Stop: 07/22/18 21:01 Last Admin: 06/22/18 21:08 Dose: 10 mg Benzonatate (Tessalon Perle) 100 mg PO Q8HP PRN PRN Reason: COUGH Stop: 07/22/18 08:08 Bisacodyl (Dulcolax) 10 mg [place] DAILYPRN PRN PRN Reason: CONSTIPATION Stop: 07/22/18 08:08 Calcitriol (Rocaltrol) 0.5 mcg PO DAILY [facility] Stop: 07/24/18 09:01 Calcium Acetate (Phoslo) 667 mg PO TIDWM [facility] Stop: 07/22/18 12:01 Last Admin: 06/23/18 17:50 Dose: 667 mg Cholecalciferol (Vitamin D 5,000 Iu Cap) 5,000 unit PO DAILY [facility] Stop: 07/24/18 09:01 Docusate Sodium (Colace Cap) 100 mg PO BID [facility] Stop: 07/22/18 09:01 Last Admin: 06/23/18 09:30 Dose: 100 mg Duloxetine HCl (Cymbalta Delayed Release Pellets) 20 mg PO DAILY [facility] Stop: 07/22/18 09:01 Last Admin: 06/23/18 09:30 Dose: 20 mg Enoxaparin Sodium (Lovenox 30 Mg Inj) 30 mg SQ DAILY [facility] Stop: 07/23/18 09:01 Last Admin: 06/23/18 13:07 Dose: 30 mg Epoetin Calin (Procrit) 10,000 unit IV EVERY HD [facility] Stop: 07/22/18 15:16 Last Admin: 06/22/18 17:20 Dose: 10,000 unit Famotidine (Pepcid) 20 mg PO DAILY [facility] Stop: 07/22/18 09:01 Last Admin: 06/23/18 09:31 Dose: 20 mg Furosemide (Lasix) 40 mg PO BIDL [facility] Stop: 07/22/18 09:01 Last Admin: 06/23/18 17:50 Dose: 40 mg Galantamine Hydrobromide (Razadyne) 12 mg PO BID [facility] Stop: 07/22/18 09:01 Last Admin: 06/23/18 09:30 Dose: 12 mg Heparin Sodium (Porcine) (Heparin 1,000 Units/Ml) 6,000 unit IV EVERY HD PRN PRN Reason: FLUSH AFTER EACH USE Stop: 07/22/18 15:07 Last Admin: 06/22/18 17:19 Dose: 6,000 unit Hydralazine HCl (Apresoline) 50 mg PO TID [facility] Stop: 07/22/18 09:01 Last Admin: 06/23/18 13:08 Dose: 50 mg Albumin Human (Albumin 25%) 50 mls @ 100 mls/hr IV EVERY HD [facility] Stop: 07/22/18 16:01 Insulin Glargine (Lantus) 25 units SQ BIDWM [facility] Stop: 07/22/18 17:01 Last Admin: 06/23/18 17:49 Dose: 25 units Levothyroxine Sodium (Synthroid) 0.025 mg PO DAILYAC [facility] Stop: 07/22/18 09:01 Last Admin: 06/23/18 06:30 Dose: Not Given Lisinopril (Prinivil) 40 mg PO DAILY [facility] Stop: 07/22/18 09:01 Last Admin: 06/23/18 09:30 Dose: 40 mg Loperamide HCl (Imodium) 4 mg PO Q4HP PRN PRN Reason: DIARRHEA Stop: 07/22/18 08:08 Lorazepam (Ativan) 0.5 mg PO TuThSa@0900 [facility] Stop: 07/22/18 09:01 Last Admin: 06/22/18 10:29 Dose: 0.5 mg Mannitol (Mannitol 12.5 Gm/50 Ml Vial) 12.5 gm IV EVERY HD PRN PRN Reason: BP support at hemodialysis Stop: 07/22/18 15:07 Metoprolol Succinate (Toprol Xl) 50 mg PO DAILY [facility] Stop: 07/22/18 09:01 Last Admin: 06/23/18 09:31 Dose: 50 mg Midodrine (Proamatine) 5 mg PO TuThSa@0900 [facility] Stop: 07/22/18 09:01 Last Admin: 06/22/18 10:33 Dose: 5 mg Morphine Sulfate (Morphine Sulfate) 2 mg IV Q4H PRN PRN Reason: PAIN MODERATE TO SEVERE Stop: 07/22/18 07:40 Ondansetron HCl (Zofran) 4 mg IV Q4H PRN PRN Reason: NAUSEA / VOMITING Stop: 07/22/18 02:40 Ondansetron HCl (Zofran) 4 mg PO Q8HP PRN PRN Reason: NAUSEA Polyethylene Glycol (Glycolax) 17 gm PO Q8HP PRN PRN Reason: CONSTIPATION Stop: 07/22/18 09:01 Pregabalin (Lyrica) 100 mg PO BID [facility] Stop: 07/22/18 09:01 Last Admin: 06/23/18 09:30 Dose: 100 mg Sodium Chloride (Normal Saline Flush) 10 ml IV BID [facility] Stop: 07/22/18 09:01 Last Admin: 06/23/18 09:32 Dose: 10 ml Spironolactone (Aldactone) 25 mg PO DAILY [facility] Stop: 07/22/18 09:01 Last Admin: 06/23/18 09:00 Dose: 25 mg Microbiology Results 06/22/18 00:59 Blood - Blood Aerobic Blood Culture - Preliminary No growth in 24 hours. 06/22/18 00:59 Blood - Blood Anaerobic Blood Culture - Preliminary No growth in 24 hours. 06/22/18 00:40 Blood - Blood Aerobic Blood Culture - Preliminary No growth in 24 hours. 06/22/18 00:40 Blood - Blood Anaerobic Blood Culture - Final Assessment/ Plan: Nephrology CPS stable without CP or SOB. No acute events overnight. Feeling better sp HD. Vitals, medications, blood work and imaging reviewed in the chart. General: Oriented x3, Cooperative, Mild distress Neck: Supple, JVD distended Respiratory: Diminished Cardiovascular: Regular rate/rhythm, No rubs, Edema Gastrointestinal: Soft and benign, Non-distended Musculoskeletal: No clubbing, No contractures Integumentary: No rashes, No cyanosis Neurological: Normal speech Laboratory Data (last 24 hrs) 06/22/18 00:40: PT 17.2 H, INR 1.45 06/22/18 00:40: WBC 6.6, Hgb 8.8 L, Hct 27.7 L, Plt Count 209 06/22/18 00:40: Sodium 138, Potassium 4.7, BUN 38 H, Creatinine 4.82 H, Glucose 139 H, Magnesium 2.3, Total Bilirubin 0.3, AST 13 L, ALT 17, Alkaline Phosphatase 112, Troponin I < 0.02, Lipase 273 06/22/18 00:13: PT Cancelled, INR Cancelled 06/22/18 00:13: WBC Cancelled, Hgb Cancelled, Hct Cancelled, Plt Count Cancelled 06/22/18 00:13: Sodium Cancelled, Potassium Cancelled, BUN Cancelled, Creatinine Cancelled, Glucose Cancelled, Magnesium Cancelled, Total Bilirubin Cancelled, AST Cancelled, ALT Cancelled, Alkaline Phosphatase Cancelled, Lipase Cancelled Imagings Data: EXAM DESCRIPTION: RAD - Chest Single View - 06/22/2018 1:22 am CLINICAL HISTORY: Difficulty breathing, cough and congestion, pneumonia history , pleural effusion history COMPARISON: May 13, 2018 TECHNIQUE: AP portable chest image was obtained 0051 hours . FINDINGS: Large pleural effusion present on the right. Patient likely has a small to moderate left pleural effusion as well. Heart is mostly obscured by the pleural fluid and lung base opacification. Vascular engorgement present. Dialysis catheter is in place. No pneumothorax seen. Pacemaker is in place. No acute bony abnormality seen. No acute aortic findings suspected. IMPRESSION: Large right pleural effusion new from May 13 imaging. Left pleural effusion is present and may be slightly larger than [place] imaging. Heart is mostly obscured. Vasculature is prominent supporting failure or volume overload. Pneumonia in either lung base can be masked by the pleural fluid. Conclusions/Impression: A/ ESRD on HD. Hyperkalemia. HTN with CKD/ CHF. A/C Diastolic CHF. Pleural effusion. Anemia in CKD. PER/ Secondary HyperPTH. P/ Continue current POC and Medications. HD as ordered. Possible thoracentesis on Tuesday. No NSAIDs. AM labs. Daily weight. When I entered the room, her son was scolding her regarding her poor compliance with sodium restriction at home.
[2018-06-23] MEDS: ATORVASTATIN 10 MG TAB PO SCH (20:50)
[2018-06-24] MEDS: LEVOTHYROXINE SOD 0.025 MG TAB PO SCH (05:32)
[2018-06-24 05:52] LABS: Absolute Lymphocytes (CBC) 2.3 K/uL (0.7-4.9); Absolute Monocytes 0.7 K/uL (0.1-1.3); Absolute Neutrophil 3.9 K/uL (1.8-8.0); Basophils % 0.3 % (0-1.3); Eosinophils % 1.3 % (0-4.4); Hematocrit 26.6 % (36.0-45.0); Lymphocytes % 33.3 % (15.3-44.8); MPV 9.1 fL (7.6-11.3); Monocytes % 9.9 % (3.3-12.3); RBC Red Blood Cell Count 2.61 M/uL (3.86-4.86)
[2018-06-24 06:03] LABS: Bilirubin Total 0.2 mg/dL (0.2-1.0); Potassium 3.9 mmol/L (3.5-5.1); Protein, Total 6.4 g/dL (6.4-8.2)
--- NOTE | 2018-06-24 08:59 | RAD REPORT ---
EXAM DESCRIPTION: Onel Single View06/24/2018 6:30 am CLINICAL HISTORY: Shortness of breath COMPARISON: June 18 FINDINGS: Moderate right and small left pleural effusions are unchanged. Bibasilar atelectasis is n oted. The heart remains enlarged. Central venous catheter and pacemaker leads are in place IMPRESSION: No significant change since the prior exam
[2018-06-24] MEDS: AMIODARONE HCL 200 MG TAB PO SCH ×2 (09:00→14:19)
[2018-06-24] MEDS: AMLODIPINE 10 MG TAB PO SCH ×2 (09:00→14:18)
[2018-06-24] MEDS: MIDODRINE HCL 5 MG TABLET PO SCH ×2 (09:00→14:19)
[2018-06-24] MEDS: HYDRALAZINE HCL 25 MG TABLET PO SCH ×3 (09:00→20:57)
[2018-06-24] MEDS: ALLOPURINOL 100 MG TAB PO SCH ×2 (09:00→14:17)
[2018-06-24] MEDS: LORAZEPAM 0.5 MG TABLET PO SCH ×2 (09:00→14:20)
[2018-06-24] MEDS: LISINOPRIL 20 MG TAB PO SCH ×2 (09:00→14:17)
[2018-06-24] MEDS: METOPROLOL XL 50 MG TAB PO SCH ×2 (09:00→14:20)
[2018-06-24] MEDS: FAMOTIDINE 20 MG TAB PO SCH ×2 (09:00→14:17)
[2018-06-24] MEDS: GALANTAMINE 4 MG TAB PO SCH ×2 (09:18→20:56)
[2018-06-24] MEDS: CALCITROL 0.25 MCG CAP PO SCH (09:18)
[2018-06-24] MEDS: PREGABALIN 50 MG CAP PO SCH ×2 (09:18→20:56)
[2018-06-24] MEDS: DOCUSATE NA 100 MG CAP PO SCH ×2 (09:19→20:57)
[2018-06-24] MEDS: DULOXETINE 20 MG CAP PO SCH (09:19)
[2018-06-24] MEDS: SPIRONOLACTONE 25 MG TABLET PO SCH (09:19)
[2018-06-24] MEDS: FUROSEMIDE 40 MG TABLET PO SCH ×2 (09:19→16:45)
[2018-06-24] MEDS: CA ACETATE 667 MG CAP PO SCH ×3 (09:19→16:45)
[2018-06-24] MEDS: ENOXAPARIN 30 MG/0.3 ML SQ SCH (09:20)
[2018-06-24] MEDS: VITAMIN D 5,000 UNIT CAP PO SCH (09:20)
[2018-06-24] MEDS: INSULIN GLARGINE 100 UNITS/ML SQ SCH ×2 (09:21→17:17)
[2018-06-24] MEDS: EPOETIN ALFA 10,000 UNIT/ML VIAL IV SCH (12:17)
--- NOTE | 2018-06-24 14:33 | P.PN ---
Subjective Date of Service: 06/24/18 Primary Care Provider: none Chief Complaint: Right-sided pleural effusion Subjective: Improving Physical Examination - Vital Signs Temperature: 98.3 F Blood Pressure: 139/62 Pulse: 70 Respirations: 16 Pulse Ox (%): 95 - Physical Exam General: Alert, In no apparent distress, Oriented x3, Cooperative HEENT: Atraumatic Neck: Supple Respiratory: Crackles/rales (The bases bilateral) Cardiovascular: Normal pulses, Regular rate/rhythm Gastrointestinal: Normal bowel sounds, Soft and benign, Non-distended, No masses , No rebound, No guarding Musculoskeletal: No tenderness, No warmth Neurological: Normal speech, Normal strength at 5/5 x4 extr, Normal tone, Normal affect - Studies Medications List Reviewed: Yes Assessment & Plan Discharge Plan: Home Plan to discharge in: Greater than 2 days Physician Review Additional Text: Impression: Bilateral pleural effusions, right greater than left Acute on chronic diastolic CHF End-stage renal disease Hypertension Plan: Bilateral pleural effusions, right greater than left: Case discussed with pulmonology. Will continue to monitor chest x-ray. Patient appears clinically improved. Patient may not need diagnostic thoracentesis. Will continue to assess. If diagnostic thoracentesis is required this will occur on Tuesday. Will continue to address with pulmonology. Continue with dialysis. Will continue to wean off oxygen. Maintain sats above 90%. Acute on Chronic diastolic CHF: Continue the medication. End-stage renal disease: Continue with dialysis. Hypertension: Continue with medication. Will monitor End adjust appropriately. Time Spent Managing Pts Care (In Minutes): 55
--- NOTE | 2018-06-24 15:01 | P.PN ---
Subjective Date of Service: 06/24/18 Primary Care Provider: none Chief Complaint: Right-sided pleural effusion seen/examined. improved. breathing better. speaking in full sentences and says she is improved. still on 2 l nasal canula. vs stable. irr hr. pulse about 70. sbp 120-130. rr 14 lungs decreased bs cvs irr abd soft ext trace edema a/p esrd/chf/congestion/pleural effusion/general weakness/resp distress: overall improved. s/p hd yesterday and today. clinically improved. pulmonary following. s/p hd today with further improvement in breathing. next hd tuesday. Physical Examination - Vital Signs Temperature: 98.3 F Blood Pressure: 139/62 Pulse: 70 Respirations: 16 Pulse Ox (%): 95 - Studies Medications List Reviewed: Yes Assessment And Plan Physician Review Additional Text: Impression: Bilateral pleural effusions, right greater than left Acute on chronic diastolic CHF End-stage renal disease Hypertension Plan: Bilateral pleural effusions, right greater than left: Case discussed with pulmonology. Will continue to monitor chest x-ray. Patient appears clinically improved. Patient may not need diagnostic thoracentesis. Will continue to assess. If diagnostic thoracentesis is required this will occur on Tuesday. Will continue to address with pulmonology. Continue with dialysis. Will continue to wean off oxygen. Maintain sats above 90%. Acute on Chronic diastolic CHF: Continue the medication. End-stage renal disease: Continue with dialysis. Hypertension: Continue with medication. Will monitor End adjust appropriately.
[2018-06-24] MEDS: ATORVASTATIN 10 MG TAB PO SCH (20:57)
[2018-06-25] MEDS ORDERED: D50W 25 GM/50 ML SYRINGE IV ONE ×2 (04:37→04:53)
[2018-06-25] MEDS: LEVOTHYROXINE SOD 0.025 MG TAB PO SCH (05:32)
[2018-06-25 06:00] LABS: Absolute Lymphocytes (CBC) 1.8 K/uL (0.7-4.9); Absolute Monocytes 0.7 K/uL (0.1-1.3); Absolute Neutrophil 4.2 K/uL (1.8-8.0); Basophils % 0.5 % (0-1.3); Hematocrit 30.8 % (36.0-45.0); Lymphocytes % 26.7 % (15.3-44.8); MPV 9.5 fL (7.6-11.3); Monocytes % 10.6 % (3.3-12.3)
[2018-06-25 06:06] LABS: Bilirubin Total 0.2 mg/dL (0.2-1.0); Potassium 3.6 mmol/L (3.5-5.1); Protein, Total 6.6 g/dL (6.4-8.2)
--- NOTE | 2018-06-25 07:42 | RAD REPORT ---
EXAM DESCRIPTION: RAD - Chest Single View - 06/25/2018 5:39 am CLINICAL HISTORY: Shortness of breath, pleural effusion COMPARISON: June 24, June 23 chest films ; June 23 CT chest TECHNIQUE: AP portable chest image was obtained 0534 hours . FINDINGS: Lung volumes are low. Right greater than left pleural effusions are present with no improv ement and possibly some enlargement since the prior day imaging. Cardiac silhouette is mostly obscure d by the lung base atelectasis and pleural effusions. Cardiac silhouette does appear enlarged and the re is greater vascular engorgement than seen previously. Dialysis catheter and pacemaker remain in pl cristi. No pneumothorax. No acute bony abnormality seen. No acute aortic findings suspected. IMPRESSION: Bilateral pleural effusions and lung base atelectasis similar or progressive from prior day study. Increasing cardiac silhouette and vascular congestion indicating failure or volume overload.
--- NOTE | 2018-06-25 08:02 | P.PN ---
Date of Service: 06/25/18 Subjective: Patient was hypoglycemic with blood sugars in the 30s. I went ahead and changed patient's Lantus dosing to once daily. I will also check a hemoglobin A1c level. Patient is end-stage renal disease and if blood sugars remain low then made need to give another amp of D50. Objective: Physical Examination Vitals: Afebrile vital signs are stable Physical exam: General: Patient is cold and clammy with diaphoresis: Patient is also lethargic Cardiovascular exam: regular rate rhythm with systolic ejection murmur 07/12 Diagnostic data has been reviewed ASST: 1. Hypoglycemia 2. Type 1 diabetes 3. End-stage renal disease PLAN: 1. Change Lantus to once daily dosing 2. Check hemoglobin A1c 3. Recheck blood sugars at 6:30 a.m. 4. Accu-Cheks AC and HS
[2018-06-25] MEDS: GALANTAMINE 4 MG TAB PO SCH ×2 (08:58→21:14)
[2018-06-25] MEDS: ENOXAPARIN 30 MG/0.3 ML SQ SCH (08:58)
[2018-06-25] MEDS: DOCUSATE NA 100 MG CAP PO SCH ×2 (08:59→21:14)
[2018-06-25] MEDS: HYDRALAZINE HCL 25 MG TABLET PO SCH ×3 (08:59→21:14)
[2018-06-25] MEDS: DULOXETINE 20 MG CAP PO SCH (08:59)
[2018-06-25] MEDS: SPIRONOLACTONE 25 MG TABLET PO SCH (08:59)
[2018-06-25] MEDS ORDERED: INSULIN GLARGINE 100 UNITS/ML SQ SCH (09:00)
[2018-06-25] MEDS: FUROSEMIDE 40 MG TABLET PO SCH ×2 (09:00→16:19)
[2018-06-25] MEDS: AMIODARONE HCL 200 MG TAB PO SCH (09:00)
[2018-06-25] MEDS: PREGABALIN 50 MG CAP PO SCH ×2 (09:00→21:13)
[2018-06-25] MEDS: LISINOPRIL 20 MG TAB PO SCH (09:00)
[2018-06-25] MEDS: CA ACETATE 667 MG CAP PO SCH ×3 (09:01→16:19)
[2018-06-25] MEDS: CALCITROL 0.25 MCG CAP PO SCH (09:01)
[2018-06-25] MEDS: AMLODIPINE 10 MG TAB PO SCH (09:01)
[2018-06-25] MEDS: ALLOPURINOL 100 MG TAB PO SCH (09:01)
[2018-06-25] MEDS: FAMOTIDINE 20 MG TAB PO SCH (09:01)
[2018-06-25] MEDS: METOPROLOL XL 50 MG TAB PO SCH (09:01)
[2018-06-25] MEDS: VITAMIN D 5,000 UNIT CAP PO SCH (09:02)
--- NOTE | 2018-06-25 11:19 | P.PN ---
Subjective Date of Service: 06/25/18 Primary Care Provider: none Chief Complaint: Right-sided pleural effusion Subjective: Other (Doing well. Patient with low blood sugar this morning.) Physical Examination - Vital Signs Temperature: 96.8 F Blood Pressure: 151/87 Pulse: 63 Respirations: 16 Pulse Ox (%): 91 - Physical Exam General: Alert, In no apparent distress, Oriented x3, Cooperative HEENT: Atraumatic Neck: Supple Respiratory: Clear to auscultation bilaterally, Normal air movement, Crackles/ rales (Minimal crackles to the bases) Cardiovascular: Normal pulses, Regular rate/rhythm Gastrointestinal: Normal bowel sounds, Soft and benign, Non-distended, No tenderness, No masses, No rebound, No guarding Musculoskeletal: No erythema, No tenderness, No warmth Integumentary: No tenderness/swelling, No erythema, No warmth Neurological: Normal speech, Normal strength at 5/5 x4 extr, Normal tone, Normal affect - Studies Medications List Reviewed: Yes Assessment & Plan Discharge Plan: Home Plan to discharge in: 24 Hours Physician Review Additional Text: Impression: Bilateral pleural effusions, right greater than left Acute on chronic diastolic CHF End-stage renal disease Hypertension Diabetes mellitus type 2 with hypoglycemia Atrial fibrillation Hypothyroidism Hyperlipidemia Anemia of chronic disease Plan: Bilateral pleural effusions, right greater than left: Case discussed with pulmonology and nephrology. Patient improving. Patient continues to be weaned off oxygen. Now on 1 L per nasal cannula. continue with Lasix. Continue to monitor closely. Recheck x-ray in the morning.. Patient may not require diagnostic thoracentesis tomorrow. If improved possible discharge tomorrow. Will discuss with pulmonology as well. Acute on Chronic diastolic CHF: Continue the medication. End-stage renal disease: Continue with dialysis. Hypertension: Continue with medication. Continue to monitor and address.. Diabetes type 2 with hypoglycemia: A1c 6.1. Will decrease Lantus due to hypoglycemia. Will monitor for hypoglycemia. Encourage oral intake. Atrial fibrillation: Continue with medication including amiodarone Hypothyroidism: Continue the medication Hyperlipidemia: Continue with medication Anemia of chronic disease: Will continue monitor closely. Time Spent Managing Pts Care (In Minutes): 55
[2018-06-25] MEDS: INSULIN GLARGINE 100 UNITS/ML SQ SCH (11:56)
[2018-06-25 12:05] VITALS: O2SAT 96
[2018-06-25] MEDS: ATORVASTATIN 10 MG TAB PO SCH (21:14)
[2018-06-26] MEDS: LEVOTHYROXINE SOD 0.025 MG TAB PO SCH (05:14)
[2018-06-26 06:23] LABS: HBsAG Nonreactive (Nonreactive)
[2018-06-26 07:06] LABS: Absolute Lymphocytes (CBC) 2.2 K/uL (0.7-4.9); Absolute Monocytes 0.7 K/uL (0.1-1.3); Absolute Neutrophil 3.6 K/uL (1.8-8.0); Basophils % 0.6 % (0-1.3); Eosinophils % 1.5 % (0-4.4); Hematocrit 28.8 % (36.0-45.0); Lymphocytes % 33.5 % (15.3-44.8); MPV 9.4 fL (7.6-11.3); RBC Red Blood Cell Count 2.79 M/uL (3.86-4.86)
[2018-06-26 07:34] LABS: Albumin 2.8 g/dL (3.4-5.0); Bilirubin Total 0.2 mg/dL (0.2-1.0); Potassium 4.8 mmol/L (3.5-5.1); Protein, Total 6.2 g/dL (6.4-8.2)
--- NOTE | 2018-06-26 08:44 | RAD REPORT ---
EXAM DESCRIPTION: Onel Single View06/26/2018 6:19 am CLINICAL HISTORY: Pleural effusion COMPARISON: June 25 FINDINGS: The right pleural effusion appears mildly diminished in size. No change has occurred in a small left pleural effusion. Bibasilar atelectasis is seen. The heart remains enlarged. Pacemaker leads and central venous cathete r in place. IMPRESSION: The right pleural effusion appears mildly diminished in size. No significant change in t he small left pleural effusion
[2018-06-26] MEDS: ENOXAPARIN 30 MG/0.3 ML SQ SCH (09:29)
[2018-06-26] MEDS: INSULIN GLARGINE 100 UNITS/ML SQ SCH (09:29)
[2018-06-26] MEDS: SPIRONOLACTONE 25 MG TABLET PO SCH (09:30)
[2018-06-26] MEDS: CALCITROL 0.25 MCG CAP PO SCH (09:31)
[2018-06-26] MEDS: VITAMIN D 5,000 UNIT CAP PO SCH (09:31)
[2018-06-26] MEDS: AMLODIPINE 10 MG TAB PO SCH (09:31)
[2018-06-26] MEDS: FUROSEMIDE 40 MG TABLET PO SCH (09:31)
[2018-06-26] MEDS: LISINOPRIL 20 MG TAB PO SCH (09:31)
[2018-06-26] MEDS: DOCUSATE NA 100 MG CAP PO SCH (09:31)
[2018-06-26] MEDS: FAMOTIDINE 20 MG TAB PO SCH (09:31)
[2018-06-26] MEDS: HYDRALAZINE HCL 25 MG TABLET PO SCH (09:31)
[2018-06-26] MEDS: ALLOPURINOL 100 MG TAB PO SCH (09:31)
[2018-06-26] MEDS: AMIODARONE HCL 200 MG TAB PO SCH (09:31)
[2018-06-26] MEDS: METOPROLOL XL 50 MG TAB PO SCH (09:31)
[2018-06-26] MEDS: CA ACETATE 667 MG CAP PO SCH ×2 (09:31→12:17)
[2018-06-26] MEDS: PREGABALIN 50 MG CAP PO SCH (09:31)
--- NOTE | 2018-06-26 09:37 | P.DS ---
Admission Date: 06/22/18 Discharge Date: 06/26/18 Primary Care Provider: none Disposition: DC HOME/HOME HEALTH CARE Discharge Condition: GOOD Reason for Admission: Right-sided pleural effusion Consultations: Nephrology-Dr. Canales Pulmonary-Dr. Moore Procedures: CT scan: COMPARISON: Thorax Wo Con dated 05/09/2018 FINDINGS: A small left and a moderate right pleural effusion is seen. Significant atelectasis of the right lower lobe is present. Mild atelectasis of the posterior left lower lobe noted. No focal infiltrate typical of pneumonia seen. No pneumothorax. Aortic atherosclerosis. No axillary, mediastinal or hilar adenopathy. No concerning bony finding. No gross upper abdominal finding. All CT scans are performed using dose optimization technique as appropriate and may include automated exposure control or mA/KV adjustment according to patient size. IMPRESSION: Small left and moderate right pleural effusion with compressive atelectasis in both lung bases. Follow up CXR: COMPARISON: June 25 FINDINGS: The right pleural effusion appears mildly diminished in size. No change has occurred in a small left pleural effusion. Bibasilar atelectasis is seen. The heart remains enlarged. Pacemaker leads and central venous catheter in place. IMPRESSION: The right pleural effusion appears mildly diminished in size. No significant change in the small left pleural effusion Medical Problem list: Acute on chronic Bilateral pleural effusions, right greater than left Acute on chronic diastolic CHF End-stage renal disease on hemodialysis Hypertension Diabetes mellitus type 2 with hypoglycemia Atrial fibrillation on chronic anti coalition therapy Hypothyroidism Hyperlipidemia Anemia of chronic disease Diabetic neuropathy Dementia GERD Chronic constipation Brief History of Present Illness: 78-year-old female presented emergency room with increasing shortness of breath. Patient with history of end-stage renal disease, CHF, chronic pleural effusion. Patient found to have bilateral pleural effusions. Patient was admitted for further evaluation. Hospital Course: Patient presented with shortness of breath. Patient found to have acute on chronic bilateral pleural effusions, right greater than left complicated with acute on chronic diastolic CHF. Patient was treated with diuretic therapy and dialysis. Patient seen and evaluated by pulmonology and nephrology. Repeat x- ray shows improvement of pleural effusions. No need for thoracentesis. This had been an issue in the past. At discharge patient did not require any oxygen. Pulmonology and nephrology recommended to monitor pleural effusions as an outpatient. Patient will continue with dialysis as directed every Tuesdays, and Saturdays. Recommend to recheck chest x-ray in 1-2 weeks to monitor stability. Patient will continue with a 1500 cc per day fluid restriction and low-salt diet. At discharge patient will continue with Lasix 40 mg 1 pill twice daily and Aldactone 25 mg daily. Patient takes midodrine 5 mg prior to dialysis, this can be continued. Patient also takes Ativan 0.5 mg prior to dialysis. This can be continued. Patient will continue with PhosLo 667 mg 1 pill 3 times a day and allopurinol 100 mg daily. Further adjustment can be done by her PCP or nephrology. Patient has hypertension. This remained stable during her stay. Patient takes multiple medications. At discharge, patient will continue with Norvasc 10 mg daily, hydralazine 50 mg 1 pill 3 times a day, lisinopril 40 mg daily, and metoprolol 50 mg daily. Patient will continue with her medication. Recommendation is to maintain blood pressures less 150/80. Further adjustment can be done by her PCP. Patient has diabetes mellitus type 2. Patient had some mild hypoglycemia. This resolved. A1c very well controlled at 6.1. Medication adjusted prior to discharge. Lantus decreased. At discharge she will continue with her medication Lantus at 10 units subcu daily to prevent hypoglycemia. She is to monitor for hypoglycemia. Patient also takes insulin per sliding scale.. Recommendation is to maintain blood sugars less 140 fasting and less than 200 after meals. Further adjustment can be done by her PCP. Patient has hypothyroidism. She will continue with her medication- levothyroxine 25 mcg daily. Patient with atrial fibrillation. This remained stable in her stay. Patient on chronic anti coagulation therapy. At discharge she will continue with amiodarone 200 mg daily and Eliquis 5 mg 1 pill twice daily. Further adjustment can be done by her PCP or cardiology. Patient has hyperlipidemia. She will continue with her medication Lipitor 10 mg daily. Patient with anemia of chronic disease. This to be monitored by nephrology as an outpatient. Patient with dementia. She will continue with her medication Razadyne 12 mg twice daily. Patient with diabetic neuropathy. She will continue with her medication-Lyrica 100 mg 1 pill twice daily and Cymbalta 20 mg daily. May need to limit pain medication in the future. This can be further adjusted by her PCP. Patient with GERD. Patient continue with Pepcid 20 mg daily. Patient with chronic constipation. Patient may continue with medication as needed. Vital Signs/Physical Exam: Temp Pulse Resp BP Pulse Ox 99.3 F 72 16 136/73 91 06/26/18 08:00 06/26/18 08:00 06/26/18 08:00 06/26/18 08:00 06/26/18 08:00 General: Alert, In no apparent distress, Cooperative HEENT: Atraumatic Neck: Supple Respiratory: Clear to auscultation bilaterally, Normal air movement Cardiovascular: Normal pulses, Regular rate/rhythm Gastrointestinal: Normal bowel sounds, Soft and benign, Non-distended, No tenderness, No masses, No rebound, No guarding Musculoskeletal: No erythema, No tenderness, No warmth Integumentary: No tenderness/swelling, No erythema, No warmth, No cyanosis Neurological: Normal speech, Normal strength at 5/5 x4 extr, Normal tone, Normal affect, Dementia (Mild) Laboratory Data at Discharge: WBC 6.7 K/uL (4.3-10.9) 06/26/18 06:50 Hgb 9.1 g/dL (12.0-15.0) L 06/26/18 06:50 Hct 28.8 % (36.0-45.0) L 06/26/18 06:50 Plt Count 212 K/uL (152-406) 06/26/18 06:50 PT 17.2 SECONDS (9.5-12.5) H 06/22/18 00:40 INR 1.45 06/22/18 00:40 Sodium 137 mmol/L (136-145) 06/26/18 06:50 Potassium 4.8 mmol/L (3.5-5.1) 06/26/18 06:50 BUN 36 mg/dL (7-18) H 06/26/18 06:50 Creatinine 5.21 mg/dL (0.55-1.3) H* D 06/26/18 06:50 Glucose 145 mg/dL (74-106) H 06/26/18 06:50 Phosphorus 5.9 mg/dL (2.5-4.9) H 06/22/18 11:31 Magnesium 2.2 mg/dL (1.8-2.4) 06/22/18 11:31 Total Bilirubin 0.2 mg/dL (0.2-1.0) 06/26/18 06:50 AST 12 U/L (15-37) L 06/26/18 06:50 ALT 18 U/L (12-78) 06/26/18 06:50 Alkaline Phosphatase 95 U/L (45-117) 06/26/18 06:50 Troponin I < 0.02 ng/mL (0.0-0.045) 06/22/18 00:40 Lipase 273 U/L (73-393) 06/22/18 00:40 Home Medications: Acetaminophen [Tylenol] 650 mg PO Q6HP PRN 05/11/18 Allopurinol [Zyloprim*] 100 mg PO DAILY 05/11/18 Amiodarone HCl [Cordarone*] 200 mg PO DAILY 05/11/18 Amlodipine Besylate [Norvasc] 10 mg PO DAILY 05/11/18 Apixaban [Eliquis] 5 mg PO BID 05/11/18 Atorvastatin Calcium [Lipitor*] 10 mg PO BEDTIME 05/11/18 Bisacodyl [Biscolax] 10 mg RC DAILYPRN PRN 05/11/18 Calcium Acetate [Phoslo*] 1 cap PO TIDWM 05/11/18 Docusate [Colace Cap*] 100 mg PO BID 05/11/18 Duloxetine HCl [Cymbalta] 20 mg PO DAILY 05/11/18 Famotidine 20 mg PO DAILY 05/11/18 Furosemide [Lasix] 40 mg PO BID 05/11/18 Galantamine HBr [Razadyne] 12 mg PO BID 05/11/18 Hydralazine HCl [Apresoline] 50 mg PO TID 05/11/18 Insulin Aspart [Novolog Flexpen] See Protocol SQ ACHS 05/11/18 LORazepam [Ativan*] 0.5 mg PO ,,S 05/11/18 Levothyroxine Sodium 25 mcg PO DAILY 05/11/18 Lisinopril 40 mg PO DAILY 05/11/18 Loperamide HCl [Imodium A-D] 4 mg PO Q4HP PRN 05/11/18 Metoprolol Succinate 50 mg PO DAILY 05/11/18 Midodrine HCl [Proamatine*] 5 mg PO ,,S 05/11/18 Ondansetron HCl [Zofran] 4 mg PO Q8HP PRN 05/11/18 Polyethylene Glycol 3350 [Miralax] 17 gm PO Q8HP 05/11/18 Pregabalin [Lyrica] 100 mg PO BID 05/11/18 Spironolactone [Aldactone*] 25 mg PO DAILY 05/11/18 Benzonatate [Tessalon Perle*] 100 mg PO Q8HP PRN 06/22/18 Insulin Glargine,Hum.rec.anlog [Lantus Solostar] 10 unit SQ DAILY #1 insuln.pen 06/26/18 New Medications: Insulin Glargine,Hum.rec.anlog [Lantus Solostar] 10 unit SQ DAILY #1 insuln.pen Patient Discharge Instructions: 1. Patient will need a follow up with a PCP in 1 week to follow up this hospitalization. 2. Patient presented with shortness of breath. Patient found to have acute on chronic bilateral pleural effusions, right greater than left complicated with acute on chronic diastolic CHF. Patient was treated with diuretic therapy and dialysis. Patient seen and evaluated by pulmonology and nephrology. Repeat x-ray shows improvement of pleural effusions. No need for thoracentesis. This had been an issue in the past. At discharge patient did not require any oxygen. Pulmonology and nephrology recommended to monitor pleural effusions as an outpatient. Patient will continue with dialysis as directed every Tuesdays, and Saturdays. Recommend to recheck chest x-ray in 1-2 weeks to monitor stability. Patient will continue with a 1500 cc per day fluid restriction and low-salt diet. At discharge patient will continue with Lasix 40 mg 1 pill twice daily and Aldactone 25 mg daily. Patient takes midodrine 5 mg prior to dialysis, this can be continued. Patient also takes Ativan 0.5 mg prior to dialysis. This can be continued. Patient will continue with PhosLo 667 mg 1 pill 3 times a day and allopurinol 100 mg daily. Further adjustment can be done by her PCP or nephrology. 3. Patient has hypertension. This remained stable during her stay. Patient takes multiple medications. At discharge, patient will continue with Norvasc 10 mg daily, hydralazine 50 mg 1 pill 3 times a day, lisinopril 40 mg daily, and metoprolol 50 mg daily. Patient will continue with her medication. Recommendation is to maintain blood pressures less 150/80. Further adjustment can be done by her PCP. 4. Patient has diabetes mellitus type 2. Patient had some mild hypoglycemia. This resolved. A1c very well controlled at 6.1. Medication adjusted prior to discharge. Lantus decreased. At discharge she will continue with her medication Lantus at 10 units subcu daily to prevent hypoglycemia. She is to monitor for hypoglycemia. Patient also takes insulin per sliding scale.. Recommendation is to maintain blood sugars less 140 fasting and less than 200 after meals. Further adjustment can be done by her PCP. 5. Patient has hypothyroidism. She will continue with her medication-levothyroxine 25 mcg daily. 6. Patient with atrial fibrillation. This remained stable in her stay. Patient on chronic anti coagulation therapy. At discharge she will continue with amiodarone 200 mg daily and Eliquis 5 mg 1 pill twice daily. Further adjustment can be done by her PCP or cardiology. 7. Patient has hyperlipidemia. She will continue with her medication Lipitor 10 mg daily. 8. Patient with anemia of chronic disease. This to be monitored by nephrology as an outpatient. 9. Patient with dementia. She will continue with her medication Razadyne 12 mg twice daily. 10. Patient with diabetic neuropathy. She will continue with her medication- Lyrica 100 mg 1 pill twice daily and Cymbalta 20 mg daily. May need to limit pain medication in the future. This can be further adjusted by her PCP. 11. Patient with GERD. Patient continue with Pepcid 20 mg daily. 12. Patient with chronic constipation. Patient may continue with medication as needed. Diet: Renal Activity: Fall precautions Time spent managing pt's care (in minutes): 55
[2018-06-26] MEDS: GALANTAMINE 4 MG TAB PO SCH (09:38)
[2018-06-26] MEDS: DULOXETINE 20 MG CAP PO SCH (09:38)
--- NOTE | 2018-06-26 11:31 | P.PN ---
Date of Service: 06/26/18 Vital Signs Temp Pulse Resp BP Pulse Ox 99.3 F 72 16 136/73 91 06/26/18 08:00 06/26/18 09:30 06/26/18 08:00 06/26/18 09:30 06/26/18 08:00 Medications Acetaminophen (Tylenol -Extra Strength) 500 mg PO Q6H PRN PRN Reason: [id number]-BPCH Stop: 07/22/18 02:40 Last Admin: 06/24/18 12:18 Dose: 500 mg Allopurinol (Zyloprim) 100 mg PO DAILY [facility] Stop: 07/22/18 09:01 Last Admin: 06/26/18 09:31 Dose: 100 mg Amiodarone HCl (Cordarone Tab) 200 mg PO DAILY [facility] Stop: 07/22/18 09:01 Last Admin: 06/26/18 09:31 Dose: 200 mg Amlodipine Besylate (Norvasc) 10 mg PO DAILY [facility] Stop: 07/22/18 09:01 Last Admin: 06/26/18 09:31 Dose: 10 mg Atorvastatin Calcium (Lipitor) 10 mg PO BEDTIME [facility] Stop: 07/22/18 21:01 Last Admin: 06/25/18 21:14 Dose: 10 mg Benzonatate (Tessalon Perle) 100 mg PO Q8HP PRN PRN Reason: COUGH Stop: 07/22/18 08:08 Bisacodyl (Dulcolax) 10 mg HI DAILYPRN PRN PRN Reason: CONSTIPATION Stop: 07/22/18 08:08 Calcitriol (Rocaltrol) 0.5 mcg PO DAILY [facility] Stop: 07/24/18 09:01 Last Admin: 06/26/18 09:31 Dose: 0.5 mcg Calcium Acetate (Phoslo) 667 mg PO TIDWM [facility] Stop: 07/22/18 12:01 Last Admin: 06/26/18 09:31 Dose: 667 mg Cholecalciferol (Vitamin D 5,000 Iu Cap) 5,000 unit PO DAILY [facility] Stop: 07/24/18 09:01 Last Admin: 06/26/18 09:31 Dose: 5,000 unit Docusate Sodium (Colace Cap) 100 mg PO BID [facility] Stop: 07/22/18 09:01 Last Admin: 06/26/18 09:31 Dose: 100 mg Duloxetine HCl (Cymbalta Delayed Release Pellets) 20 mg PO DAILY [facility] Stop: 07/22/18 09:01 Last Admin: 06/26/18 09:38 Dose: 20 mg Enoxaparin Sodium (Lovenox 30 Mg Inj) 30 mg SQ DAILY [facility] Stop: 07/23/18 09:01 Last Admin: 06/26/18 09:29 Dose: 30 mg Epoetin Calin (Procrit) 10,000 unit IV EVERY HD [facility] Stop: 07/22/18 15:16 Last Admin: 06/24/18 12:17 Dose: 10,000 unit Famotidine (Pepcid) 20 mg PO DAILY [facility] Stop: 07/22/18 09:01 Last Admin: 06/26/18 09:31 Dose: 20 mg Furosemide (Lasix) 40 mg PO BIDL [facility] Stop: 07/22/18 09:01 Last Admin: 06/26/18 09:31 Dose: 40 mg Galantamine Hydrobromide (Razadyne) 12 mg PO BID [facility] Stop: 07/22/18 09:01 Last Admin: 06/26/18 09:38 Dose: 12 mg Heparin Sodium (Porcine) (Heparin 1,000 Units/Ml) 6,000 unit IV EVERY HD PRN PRN Reason: FLUSH AFTER EACH USE Stop: 07/22/18 15:07 Last Admin: 06/24/18 12:19 Dose: 6,000 unit Hydralazine HCl (Apresoline) 50 mg PO TID [facility] Stop: 07/22/18 09:01 Last Admin: 06/26/18 09:31 Dose: 50 mg Albumin Human (Albumin 25%) 50 mls @ 100 mls/hr IV EVERY HD [facility] Stop: 07/22/18 16:01 Insulin Glargine (Lantus) 10 units SQ DAILY [facility] Stop: 07/25/18 09:01 Last Admin: 06/26/18 09:29 Dose: 10 units Levothyroxine Sodium (Synthroid) 0.025 mg PO DAILYAC [facility] Stop: 07/22/18 09:01 Last Admin: 06/26/18 05:14 Dose: 0.025 mg Lisinopril (Prinivil) 40 mg PO DAILY [facility] Stop: 07/22/18 09:01 Last Admin: 01/21/19 09:31 Dose: 40 mg Loperamide HCl (Imodium) 4 mg PO Q4HP PRN PRN Reason: DIARRHEA Stop: 07/22/18 08:08 Lorazepam (Ativan) 0.5 mg PO TuThSa@0900 [facility] Stop: 07/22/18 09:01 Last Admin: 06/24/18 14:20 Dose: 0.5 mg Mannitol (Mannitol 12.5 Gm/50 Ml Vial) 12.5 gm IV EVERY HD PRN PRN Reason: BP support at hemodialysis Stop: 07/22/18 15:07 Metoprolol Succinate (Toprol Xl) 50 mg PO DAILY [facility] Stop: 07/22/18 09:01 Last Admin: 06/26/18 09:31 Dose: 50 mg Midodrine (Proamatine) 5 mg PO TuThSa@0900 [facility] Stop: 07/22/18 09:01 Last Admin: 06/24/18 14:19 Dose: 5 mg Morphine Sulfate (Morphine Sulfate) 2 mg IV Q4H PRN PRN Reason: PAIN MODERATE TO SEVERE Stop: 07/22/18 07:40 Ondansetron HCl (Zofran) 4 mg IV Q4H PRN PRN Reason: NAUSEA / VOMITING Stop: 07/22/18 02:40 Ondansetron HCl (Zofran) 4 mg PO Q8HP PRN PRN Reason: NAUSEA Polyethylene Glycol (Glycolax) 17 gm PO Q8HP PRN PRN Reason: CONSTIPATION Stop: 07/22/18 09:01 Pregabalin (Lyrica) 100 mg PO BID [facility] Stop: 07/22/18 09:01 Last Admin: 06/26/18 09:31 Dose: 100 mg Sodium Chloride (Normal Saline Flush) 10 ml IV BID [facility] Stop: 07/22/18 09:01 Last Admin: 06/26/18 09:32 Dose: 10 ml Spironolactone (Aldactone) 25 mg PO DAILY [facility] Stop: 07/22/18 09:01 Last Admin: 06/26/18 09:30 Dose: 25 mg Microbiology Results 06/22/18 00:59 Blood - Blood Aerobic Blood Culture - Preliminary No growth in 24 hours. 06/22/18 00:59 Blood - Blood Anaerobic Blood Culture - Preliminary No growth in 24 hours. 06/22/18 00:40 Blood - Blood Aerobic Blood Culture - Preliminary No growth in 24 hours. 06/22/18 00:40 Blood - Blood Anaerobic Blood Culture - Final Assessment/ Plan: Nephrology CPS stable without CP or SOB. No acute events overnight. Doing well. Thoracentesis canceled today due to improvement. Vitals, medications, blood work and imaging reviewed in the chart. General: Oriented x3, Cooperative, Mild distress Neck: Supple, JVD distended Respiratory: Diminished Cardiovascular: Regular rate/rhythm, No rubs, Edema Gastrointestinal: Soft and benign, Non-distended Musculoskeletal: No clubbing, No contractures Integumentary: No rashes, No cyanosis Neurological: Normal speech Laboratory Data (last 24 hrs) 06/22/18 00:40: PT 17.2 H, INR 1.45 06/22/18 00:40: WBC 6.6, Hgb 8.8 L, Hct 27.7 L, Plt Count 209 06/22/18 00:40: Sodium 138, Potassium 4.7, BUN 38 H, Creatinine 4.82 H, Glucose 139 H, Magnesium 2.3, Total Bilirubin 0.3, AST 13 L, ALT 17, Alkaline Phosphatase 112, Troponin I < 0.02, Lipase 273 06/22/18 00:13: PT Cancelled, INR Cancelled 06/22/18 00:13: WBC Cancelled, Hgb Cancelled, Hct Cancelled, Plt Count Cancelled 06/22/18 00:13: Sodium Cancelled, Potassium Cancelled, BUN Cancelled, Creatinine Cancelled, Glucose Cancelled, Magnesium Cancelled, Total Bilirubin Cancelled, AST Cancelled, ALT Cancelled, Alkaline Phosphatase Cancelled, Lipase Cancelled Imagings Data: EXAM DESCRIPTION: RAD - Chest Single View - 06/22/2018 1:22 am CLINICAL HISTORY: Difficulty breathing, cough and congestion, pneumonia history , pleural effusion history COMPARISON: May 13, 2018 TECHNIQUE: AP portable chest image was obtained 0051 hours . FINDINGS: Large pleural effusion present on the right. Patient likely has a small to moderate left pleural effusion as well. Heart is mostly obscured by the pleural fluid and lung base opacification. Vascular engorgement present. Dialysis catheter is in place. No pneumothorax seen. Pacemaker is in place. No acute bony abnormality seen. No acute aortic findings suspected. IMPRESSION: Large right pleural effusion new from May 13 imaging. Left pleural effusion is present and may be slightly larger than [place] imaging. Heart is mostly obscured. Vasculature is prominent supporting failure or volume overload. Pneumonia in either lung base can be masked by the pleural fluid. Conclusions/Impression: A/ ESRD on HD. Hyperkalemia. HTN with CKD/ CHF. A/C Diastolic CHF. Pleural effusion. Anemia in CKD. PER/ Secondary HyperPTH. P/ Continue current POC and Medications. HD as ordered TTS. Counseled regarding diet. No NSAIDs. AM labs. Daily weight. Case discussed with Dr. Connors. Plan for discharge today. Next HD tomorrow.
[2018-06-26 12:58] VITALS: BP 126/53; TEMP 99
== END 2018-06-26 14:30 | DRG 291 ==
LOC: ER 00:03 → ERHOLD 01:20 → 4TH 04:08
PROVIDERS: ADMIT Hospitalist; ATTEND Family Medicine
PROC: 5A1D70Z Performance of Urinary Filtration, Intermittent, Less than 6 Hours Per Day (ICD-10-PCS; principal; 2018-06-22)
PROC: 5A1D70Z Performance of Urinary Filtration, Intermittent, Less than 6 Hours Per Day (ICD-10-PCS; 2018-06-24)
DX: I13.2 Hypertensive heart and chronic kidney disease with heart failure and with stage 5 chronic kidney disease, or end stage renal disease (principal); I50.33 Acute on chronic diastolic (congestive) heart failure; N18.6 End stage renal disease; J90 Pleural effusion, not elsewhere classified; N25.81 Secondary hyperparathyroidism of renal origin; E11.22 Type 2 diabetes mellitus with diabetic chronic kidney disease; Z99.2 Dependence on renal dialysis; E11.649 Type 2 diabetes mellitus with hypoglycemia without coma; I48.91 Unspecified atrial fibrillation; Z79.01 Long term (current) use of anticoagulants; E03.9 Hypothyroidism, unspecified; E78.5 Hyperlipidemia, unspecified; D63.1 Anemia in chronic kidney disease; E11.40 Type 2 diabetes mellitus with diabetic neuropathy, unspecified; K21.9 Gastro-esophageal reflux disease without esophagitis; K59.09 Other constipation; Z88.1 Allergy status to other antibiotic agents; Z88.5 Allergy status to narcotic agent; Z88.0 Allergy status to penicillin; Z79.4 Long term (current) use of insulin; F01.50 Vascular dementia, unspecified severity, without behavioral disturbance, psychotic disturbance, mood disturbance, and anxiety; Z87.891 Personal history of nicotine dependence; N25.0 Renal osteodystrophy; E87.5 Hyperkalemia
CPT/HCPCS: 36415; 71045; 71046; 71250; 80048; 80053; 80076; 82962; 83036; 83690; 83735; 83880; 84100; 84145; 84484; 85025; 85610; 86317; 86704; 86706; 86850; 86900; 86901; 87040; 87340; 90935; 93005; 97116; 97163; 97530; J1644; J1650; J2930; Q4081

== ENCOUNTER 2018-07-18 16:57 | Inpatient (IN) | payer OTHER ==
[2018-07-18 18:22] LABS: Absolute Lymphocytes (CBC) 0.9 K/uL (0.7-4.9); Absolute Monocytes 0.4 K/uL (0.1-1.3); Basophils % 0.8 % (0-1.3); Eosinophils % 1.7 % (0-4.4); Hematocrit 30.5 % (36.0-45.0); MPV 9.1 fL (7.6-11.3); RBC Red Blood Cell Count 2.91 M/uL (3.86-4.86)
[2018-07-18 18:28] LABS: Protime INR 1.27
--- NOTE | 2018-07-18 18:54 | RAD REPORT ---
EXAM DESCRIPTION: RAD - Chest Single View - 07/18/2018 6:29 pm CLINICAL HISTORY: COPD, cough and congestion, weakness, COPD history COMPARISON: June 26 TECHNIQUE: AP portable chest image was obtained 1825 hours . FINDINGS: Interstitial opacification is present. There is vascular engorgement in overall enlargemen t of the cardiac silhouette. Dialysis catheter and pacemaker remain in place. Bilateral pleural effus ions are similar or perhaps slightly worse on the right. No pneumothorax. IMPRESSION: Moderate CHF/volume overload pattern slightly worse than the June 26 study.
[2018-07-18 19:09] LABS: Albumin 3.5 g/dL (3.4-5.0); Bilirubin Direct 0.1 mg/dL (0-0.2); Bilirubin Total 0.3 mg/dL (0.2-1.0); Potassium 3.9 mmol/L (3.5-5.1); Protein, Total 7.3 g/dL (6.4-8.2); Troponin (Emerg Dept Use Only) 0.03 ng/mL (0.0-0.045)
[2018-07-18 19:25] LABS: Urine Blood NEGATIVE (NEG); Urine Glucose TRACE (NEG); Urine Protein 3+ (NEG); Urine Specific Gravity 1.025 (1.005-1.030); Urine pH 5.5 (5.0-7.0)
[2018-07-18] MEDS ORDERED: FUROSEMIDE 40 MG/4 ML VIAL ONE (20:26)
[2018-07-18] MEDS ORDERED: FUROSEMIDE 20 MG/ 2ML VIAL ONE (20:26)
--- NOTE | 2018-07-18 20:34 | ER ---
Nurse's Notes [facility] Name: Renée Souza Age: 78 yrs Sex: Female : 1940 Arrival Date: 07/18/2018 Time: 16:58 Bed 26 Private MD: Diagnosis: Weakness-General;Cough Presentation: 07/18 17:05 Presenting complaint: EMS states: patient has been feeling weak, having non-productive mg2 cough and she thinks she has pneumonia.. she had her dialysis done today morning. BGL is 88 mg/dl. Transition of care: patient was received from another setting of care ([facility]. Onset of symptoms was July 18, 2018. Risk Assessment: Do you want to hurt yourself or someone else? Patient reports no desire to harm self or others. Initial Sepsis Screen: Does the patient meet any 2 criteria? No. Patient's initial sepsis screen is negative. Does the patient have a suspected source of infection? No. Patient's initial sepsis screen is negative. Care prior to arrival: None. 17:05 Method Of Arrival: EMS: [facility] mg2 17:05 Acuity: YUNIER 3 mg2 Triage Assessment: 21:28 General: Appears comfortable, Behavior is calm, cooperative. Pain: Denies pain. mg2 Historical: - Allergies: 17:33 Aspirin; mg2 17:33 Codeine; mg2 17:33 Keflex; mg2 17:33 HYDROCODONE; mg2 17:33 Levaquin; mg2 17:33 Morphine; mg2 17:33 PENICILLINS; mg2 - Home Meds: 17:36 Aldactone 25 mg Oral tab 1 tab once daily [Active]; allopurinol 100 mg Oral tab 1 tab mg2 once daily [Active]; amiodarone 200 mg Oral tab 1 tab once daily [Active]; amlodipine 10 mg tab 1 tab once daily [Active]; Ativan 0.5 mg Oral tab [Active]; atorvastatin 10 mg Oral tab nightly [Active]; benzonatate 100 mg Oral cap every 8 hours for Cough [Active]; bisacodyl 10 mg Rectal supp 1 suppository once daily for constipation [Active]; calcium acetate 667 mg Oral cap 3 times per day [Active]; Colace 100 mg Oral cap 1 cap 2 times per day for constipation [Active]; duloxetine 20 mg Oral cpDR daily [Active]; Eliquis 5 mg Oral tab 1 tab 2 times per day [Active]; famotidine 20 mg Oral tab 1 tab once daily [Active]; galantamine 12 mg Oral tab 1 tab 2 times per day [Active]; hydralazine 50 mg Oral tab three times a day [Active]; Lantus 100 unit/mL Sub-Q soln 25 unit twice a day [Active]; Lasix 40 mg Oral tab 1 tab once daily [Active]; levothyroxine 25 mcg tab 1 tab once daily [Active]; lisinopril 40 mg Oral tab 1 tab once daily [Active]; loperamide 2 mg Oral tab 2 tabs every 4 hours for diarrhea [Active]; Lyrica 100 mg Oral 2 times per day [Active]; metoprolol tartrate 50 mg Oral tab 1 tab once daily [Active]; midodrine 5 mg Oral tab twice a day [Active]; Novolog 100 unit/mL Sub-Q soln [Active]; - PMHx: 17:36 Anemia; Atrial Fib; CHF; COPD; Depression; Diabetes - NIDDM; Dialysis-T//SAT; mg2 DYSPHAGIA; Hyperlipidemia; ESRD; Hypertension; Hypothyroidism; Myocardial infarction; Peripheral venous insufficiency; pleural effusion; Pneumonia; VASCULAR DEMENTIA; - PSHx: 17:36 cardiac pacemaker; mg2 - Immunization history:: Flu vaccine status is unknown. - Social history:: Smoking status: unknown Patient/guardian denies using alcohol, street drugs, IV drugs. - Ebola Screening: : No symptoms or risks identified at this time. Screenin:37 Abuse screen: Denies threats or abuse. Denies injuries from another. Nutritional mg2 screening: No deficits noted. Tuberculosis screening: No symptoms or risk factors identified. Fall Risk IV access (20 points). Gait- Weak (10 pts.). Assessment: 17:37 Reassessment: see triage assessment. mg2 18:44 Reassessment: redraw of blood for lab. tl3 21:37 Reassessment: nurse Barb will call me back to receive the report. mg2 Vital Signs: 17:07 BP 130 / 51; Pulse 63; Resp 18; Temp 96.3; Pulse Ox 97% on 2 lpm NC; Weight 75.75 kg; mg2 Height 5 ft. 0 in. (152.40 cm); Pain 0/10; 19:57 BP 137 / 65; Pulse 69; Resp 18; Temp 96.4(O); Pulse Ox 92% on 2 lpm NC; Pain 0/10; mg2 21:31 BP 142 / 67; Pulse 93; Resp 18; Temp 96.8(O); Pulse Ox 93% on 2 lpm NC; Pain 0/10; mg2 17:07 Body Mass Index 32.61 (75.75 kg, 152.40 cm) mg2 ED Course: 16:58 Patient arrived in ED. mg2 17:05 Tomi Greenberg, RN is Primary Nurse. mg2 17:06 Triage completed. mg2 17:14 EKG done, by boiler testing technician. reviewed by Sal Brown MD. sm3 17:36 Arm band placed on. mg2 17:37 No provider procedures requiring assistance completed. Inserted saline lock: 20 gauge mg2 in right forearm, using aseptic technique. Blood collected. 17:37 Patient has correct armband on for positive identification. Placed in gown. Bed in low mg2 position. Call light in reach. Side rails up X2. Pulse ox on. NIBP on. 18:25 Ryan Alvarez PA is PHCP. cp 18:25 José Keating MD is Attending Physician. cp 18:31 XRAY Chest (1 view) In Process Unspecified. EDMS 19:14 Ryan Rodriguez MD is Attending Physician. cp 20:32 Lianne Aponte MD is Hospitalizing Provider. cp 21:43 Patient admitted, IV remains in place. mg2 Administered Medications: 20:21 Drug: Lasix 100 mg Route: IVP; Site: right forearm; mg2 21:33 Follow up: Response: No adverse reaction mg2 Outcome: 20:33 Decision to Hospitalize by Provider. cp 21:43 Admitted to Tele accompanied by tech, via stretcher, room 426, with chart, Report mg2 called to [facility] 21:43 Condition: stable 21:43 Instructed on the need for admit, Demonstrated understanding of instructions. 21:55 Patient left the ED. mg2 Signatures: Dispatcher [employer] EDMS Ryan Alvarez PA PA cp Lowrey, Tammy, RN RN tl3 Tomi Greenberg RN RN mg2 Zoë Holguin sm3 Corrections: (The following items were deleted from the chart) 17:07 17:05 Presenting complaint: EMS states: patient has been feeling weak, having mg2 non-productive cough and she thinks she has pneumonia.. she had her dialysis done today morning. mg2
--- NOTE | 2018-07-18 20:34 | EDPHYS ---
Physician Documentation [facility] Name: Renée Souza Age: 78 yrs Sex: Female : 1940 Arrival Date: 07/18/2018 Time: 16:58 Bed 26 Private MD: ED Physician Ryan Rodriguez HPI: 07/18 18:00 This 78 yrs old Female presents to ER via EMS with complaints of cough. cp 18:00 The patient or guardian reports cough, with no sputum. Onset: The symptoms/episode cp began/occurred last week, and became worse yesterday. Severity of symptoms: in the emergency department the symptoms are unchanged. Associated signs and symptoms: Pertinent positives: general weakness, Pertinent negatives: chest pain, diarrhea, fever, vomiting. 18:00 Daughter reports patient completed dialysis today. cp Historical: - Allergies: 17:33 Aspirin; mg2 17:33 Codeine; mg2 17:33 Keflex; mg2 17:33 HYDROCODONE; mg2 17:33 Levaquin; mg2 17:33 Morphine; mg2 17:33 PENICILLINS; mg2 - Home Meds: 17:36 Aldactone 25 mg Oral tab 1 tab once daily [Active]; allopurinol 100 mg Oral tab 1 tab mg2 once daily [Active]; amiodarone 200 mg Oral tab 1 tab once daily [Active]; amlodipine 10 mg tab 1 tab once daily [Active]; Ativan 0.5 mg Oral tab [Active]; atorvastatin 10 mg Oral tab nightly [Active]; benzonatate 100 mg Oral cap every 8 hours for Cough [Active]; bisacodyl 10 mg Rectal supp 1 suppository once daily for constipation [Active]; calcium acetate 667 mg Oral cap 3 times per day [Active]; Colace 100 mg Oral cap 1 cap 2 times per day for constipation [Active]; duloxetine 20 mg Oral cpDR daily [Active]; Eliquis 5 mg Oral tab 1 tab 2 times per day [Active]; famotidine 20 mg Oral tab 1 tab once daily [Active]; galantamine 12 mg Oral tab 1 tab 2 times per day [Active]; hydralazine 50 mg Oral tab three times a day [Active]; Lantus 100 unit/mL Sub-Q soln 25 unit twice a day [Active]; Lasix 40 mg Oral tab 1 tab once daily [Active]; levothyroxine 25 mcg tab 1 tab once daily [Active]; lisinopril 40 mg Oral tab 1 tab once daily [Active]; loperamide 2 mg Oral tab 2 tabs every 4 hours for diarrhea [Active]; Lyrica 100 mg Oral 2 times per day [Active]; metoprolol tartrate 50 mg Oral tab 1 tab once daily [Active]; midodrine 5 mg Oral tab twice a day [Active]; Novolog 100 unit/mL Sub-Q soln [Active]; - PMHx: 17:36 Anemia; Atrial Fib; CHF; COPD; Depression; Diabetes - NIDDM; Dialysis-T//TUE; mg2 DYSPHAGIA; Hyperlipidemia; ESRD; Hypertension; Hypothyroidism; Myocardial infarction; Peripheral venous insufficiency; pleural effusion; Pneumonia; VASCULAR DEMENTIA; - PSHx: 17:36 cardiac pacemaker; mg2 - Immunization history:: Flu vaccine status is unknown. - Social history:: Smoking status: unknown Patient/guardian denies using alcohol, street drugs, IV drugs. - Ebola Screening: : No symptoms or risks identified at this time. ROS: 18:05 Constitutional: Negative for fever, poor PO intake. cp 18:05 Eyes: Negative for injury, pain, redness, and discharge. cp 18:05 ENT: Negative for drainage from ear(s), ear pain, sore throat, difficulty swallowing, difficulty handling secretions. 18:05 Cardiovascular: Negative for chest pain, edema. 18:05 Respiratory: Positive for cough, with no reported sputum, Negative for wheezing. 18:05 Abdomen/GI: Negative for abdominal pain, vomiting, diarrhea, constipation, black/tarry stool, rectal bleeding. 18:05 Skin: Negative for cellulitis, rash. 18:05 Neuro: Positive for general weakness, Negative for altered mental status, headache, speech changes. 18:05 All other systems are negative. Exam: 18:10 Constitutional: The patient appears in no acute distress, alert, awake, cp non-diaphoretic, non-toxic, well developed, well nourished. 18:10 Head/Face: Normocephalic, atraumatic. cp 18:10 Eyes: Periorbital structures: appear normal, Pupils: equal, round, and reactive to light and accomodation, Conjunctiva: normal, no exudate, no injection, Sclera: no appreciated abnormality, Lids and lashes: appear normal, bilaterally. 18:10 ENT: External ear(s): are unremarkable, Ear canal(s): are normal, clear, TM's: bulging, is not appreciated, bilaterally, dullness, bilaterally, erythema, is not appreciated, bilaterally, Nose: is normal, Mouth: Lips: moist, Oral mucosa: pink and intact, moist, Posterior pharynx: is normal, airway is patent, no erythema, no exudate, Voice: is normal. 18:10 Neck: ROM/movement: is normal, is supple, without pain, no range of motions limitations, no meningismus, no nuchal rigidity. 18:10 Chest/axilla: Inspection: normal, Palpation: is normal, no crepitus, no tenderness. 18:10 Cardiovascular: Rate: normal, Rhythm: regular, JVD: is not appreciated. 18:10 Respiratory: the patient does not display signs of respiratory distress, Respirations: normal, no use of accessory muscles, no retractions, no splinting, no tachypnea, labored breathing, is not present, Breath sounds: decreased breath sounds, that are mild, throughout, stridor, is not appreciated, wheezing: is not appreciated. 18:10 Abdomen/GI: Inspection: abdomen appears normal, Bowel sounds: active, all quadrants, Palpation: abdomen is soft and non-tender, in all quadrants. 18:10 Skin: cellulitis, is not appreciated, no rash present. 18:10 Neuro: Orientation: no acute changes, per family, Mentation: no acute changes, per family, Cerebellar function: is grossly normal, Motor: moves all fours, general weakness w/o focal deficits, Sensation: is normal. Vital Signs: 17:07 BP 130 / 51; Pulse 63; Resp 18; Temp 96.3; Pulse Ox 97% on 2 lpm NC; Weight 75.75 kg; mg2 Height 5 ft. 0 in. (152.40 cm); Pain 0/10; 19:57 BP 137 / 65; Pulse 69; Resp 18; Temp 96.4(O); Pulse Ox 92% on 2 lpm NC; Pain 0/10; mg2 21:31 BP 142 / 67; Pulse 93; Resp 18; Temp 96.8(O); Pulse Ox 93% on 2 lpm NC; Pain 0/10; mg2 17:07 Body Mass Index 32.61 (75.75 kg, 152.40 cm) mg2 MDM: 18:25 Patient medically screened. cp 20:15 Data reviewed: vital signs, lab test result(s), EKG, radiologic studies, plain films. cp 20:15 Differential Diagnosis: Bronchitis Influenza Pneumonia. Physician consultation: oli Dominguez MD was called at 20:10, was contacted at 20:10, regarding patient's condition, would like admission per Dr. Lianne Aponte MD wants Lasix 100mg to be given and patient admitted for observation. Wants consult for dialysis in morning. 07/18 17:57 Order name: Basic Metabolic Panel; Complete Time: 19:54 mg2 07/18 19:55 Interpretation: Normal except: GLUC 131; CRE 3.58; GFR 12. cp 07/18 17:57 Order name: CBC with Diff; Complete Time: 18:25 mg2 07/18 19:55 Interpretation: Normal except: RBC 2.91; HGB 9.7; HCT 30.5; MCV 105.0; MCHC 31.7; RDW cp 19.5. 07/18 17:57 Order name: LFT's; Complete Time: 19:54 mg2 07/18 19:55 Interpretation: Normal except: GLOB 3.8; A/G 0.9. cp 07/18 17:57 Order name: Magnesium; Complete Time: 19:54 mg2 07/18 17:57 Order name: NT PRO-BNP; Complete Time: 19:54 mg2 07/18 17:57 Order name: PT-INR; Complete Time: 18:36 mg2 07/18 17:57 Order name: Troponin (emerg Dept Use Only); Complete Time: 19:54 mg2 07/18 18:17 Order name: Urine Dipstick--Ancillary (enter results); Complete Time: 19:54 eb 07/18 18:36 Order name: Influenza Screen (a \T\ B); Complete Time: 20:11 cp 07/18 18:44 Order name: Blood Culture Adult (2) cp 07/18 18:44 Order name: Procalcitonin; Complete Time: 19:54 cp 07/18 18:44 Order name: Lactate; Complete Time: 19:54 cp 07/18 20:57 Order name: CBC with Automated Diff EDMS 07/18 20:57 Order name: CBC with Automated Diff EDMS 07/18 17:57 Order name: XRAY Chest (1 view); Complete Time: 19:54 mg2 07/18 17:57 Order name: EKG; Complete Time: 17:58 mg2 07/18 17:57 Order name: Cardiac monitoring; Complete Time: 17:58 [facility] [place] 17:57 Order name: EKG - Nurse/Tech; Complete Time: 17:58 [facility] [place] 17:57 Order name: IV Saline Lock; Complete Time: 17:58 mg2 07/18 17:57 Order name: Labs collected and sent; Complete Time: 17:58 mg2 07/18 17:57 Order name: O2 Per Protocol; Complete Time: 17:58 mg2 07/18 17:57 Order name: O2 Sat Monitoring; Complete Time: 17:58 mg2 07/18 20:57 Order name: CONS Pharmacy Consult [facility] 07/18 20:57 Order name: CONS Physician Consult [facility] 07/18 20:57 Order name: Renal [facility] 07/18 20:57 Order name: Comprehensive Metabolic Panel [facility] 07/18 20:57 Order name: Comprehensive Metabolic Panel [facility] 07/18 20:57 Order name: Chest Single View [facility] 07/18 20:57 Order name: Chest Single View [facility] Administered Medications: 20:21 Drug: Lasix 100 mg Route: IVP; Site: right forearm; mg2 21:33 Follow up: Response: No adverse reaction mg2 Disposition: 07/18/18 20:33 Hospitalization ordered by Lianne Aponte for Observation. Preliminary diagnosis are Weakness - General, Cough. - Bed requested for Telemetry/MedSurg (observation). - Status is Observation. mg2 - Condition is Stable. - Problem is new. - Symptoms have improved. UTI on Admission? No Addendum: 07/20/2018 07:49 Co-signature as Attending Physician, Ryan Rodriguez MD I agree with the assessment and c diaz plan of care. Signatures: Dispatcher [employer] [facility] Cheyenne Alba RN RN kl Anderson, Corey, MD MD cha Page, Corey, PA PA cp Tomi Greenberg RN RN mg2 Corrections: (The following items were deleted from the chart) 07/18 20:33 20:33 Hospitalization Ordered by Lianne Aponte MD for Observation. Preliminary cp diagnosis is Weakness - General. Bed requested for Telemetry/MedSurg (observation). Status is Observation. Condition is Stable. Problem is new. Symptoms have improved. UTI on Admission? No. cp 21:26 20:33 07/18/2018 20:33 Hospitalization Ordered by Lianne Aponte MD for Observation. kl Preliminary diagnosis is Weakness - General; Cough. Bed requested for Telemetry/MedSurg (observation). Status is Observation. Condition is Stable. Problem is new. Symptoms have improved. UTI on Admission? No. cp 21:55 21:26 07/18/2018 20:33 Hospitalization Ordered by Lianne Aponte MD for Observation. mg2 Preliminary diagnosis is Weakness - General; Cough. Bed requested for Telemetry/MedSurg (observation). Status is Observation. Condition is Stable. Problem is new. Symptoms have improved. UTI on Admission? No. kl
[2018-07-18] MEDS ORDERED: ONDANSETRON 4 MG/2 ML VIAL IV PRN (20:53)
[2018-07-18] MEDS ORDERED: ACETAMINOPHEN 500 MG TAB PO PRN (20:53)
[2018-07-18] MEDS ORDERED: MORPHINE 2 MG/ML SYR IV PRN (20:53)
--- NOTE | 2018-07-18 21:43 | EKG ---
Test Date: 2018-07-18 Test Time: 17:09:45 Laborer General: CAROLANN MEASUREMENT RESULTS: Intervals: Rate: 75 RI: QRSD: 88 QT: 376 QTc: 419 Taiban: P: RI: QRS: 79 T: -46 INTERPRETIVE STATEMENTS: Rhythm consistent with DDD pacing tracking sinus rhythm with frequent premature atrial complexes Cannot rule out Anterior infarct Abnormal ECG Compared to ECG 06/22/2018 00:13:03 Atrial premature complex(es) now present Myocardial infarct finding still present Electronically Signed On 07-18-18 21:43:29 COMB TENDER by Eric Barber
[2018-07-18] MEDS ORDERED: HEPARIN 10,000 UNIT/10 ML VIAL IV PRN (22:10)
[2018-07-18] MEDS ORDERED: MANNITOL 25% 12.5 GM/50 ML VIAL IV PRN (22:10)
[2018-07-18] MEDS ORDERED: NA CHLORIDE 0.9% 1,000 ML IV PRN (22:10)
[2018-07-18] MEDS ORDERED: ALBUMIN HUMAN 25% 50 ML IV SCH (23:00)
[2018-07-19 04:43] LABS: Absolute Lymphocytes (CBC) 0.8 K/uL (0.7-4.9); Absolute Monocytes 0.4 K/uL (0.1-1.3); Absolute Neutrophil 2.3 K/uL (1.8-8.0); Basophils % 0.9 % (0-1.3); Eosinophils % 2.6 % (0-4.4); Hematocrit 26.5 % (36.0-45.0); Lymphocytes % 22.8 % (15.3-44.8); MPV 8.9 fL (7.6-11.3); Monocytes % 10.3 % (3.3-12.3); RBC Red Blood Cell Count 2.49 M/uL (3.86-4.86)
[2018-07-19 04:50] LABS: Albumin 3.2 g/dL (3.4-5.0); Bilirubin Total 0.3 mg/dL (0.2-1.0); Potassium 4.4 mmol/L (3.5-5.1); Protein, Total 6.7 g/dL (6.4-8.2)
[2018-07-19 05:27] LABS: Blood Morphology Comment NOTED (NOT SEEN); Macrocytosis 2+; Platelet Estimate ADEQ; Polychromasia 1+; Urine White Blood Cell Casts OK
--- NOTE | 2018-07-19 08:19 | RAD REPORT ---
EXAM DESCRIPTION: Onel Single View07/19/2018 6:42 am CLINICAL HISTORY: Shortness of breath COMPARISON: July 18 FINDINGS: Worsening in bilateral pulmonary opacities. Small to moderate pleural effusions suspected. The heart remains enlarged. Pacemaker leads in place. Central venous catheter is noted. IMPRESSION: Worsening in CHF
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
[2018-07-19] MEDS ORDERED: FUROSEMIDE 40 MG/4 ML VIAL IV ONE (10:27)
[2018-07-19 11:41] LABS: Arterial Blood Carboxyhemoglob 1.3 % (0-1.5); Blood Gas Oxyhemoglobin 89.1 % (94-97); Blood O2 Saturation 91.4 % (92-98.5)
[2018-07-19] MEDS ORDERED: ONDANSETRON 4 MG (ODT) TAB PO PRN (12:48)
[2018-07-19] MEDS ORDERED: ACETAMINOPHEN 325 MG TABLET PO PRN (12:48)
[2018-07-19] MEDS ORDERED: POLYETHYL GLY 3350 17 GM/DOSE PO PRN (12:48)
[2018-07-19] MEDS ORDERED: BENZONATATE 100 MG CAP PO PRN (12:48)
[2018-07-19] MEDS ORDERED: LOPERAMIDE HCL 2 MG CAPSULE PO PRN (12:48)
[2018-07-19] MEDS ORDERED: DOCUSATE NA 100 MG CAP PO PRN (12:48)
[2018-07-19] MEDS: HYDRALAZINE HCL 25 MG TABLET PO SCH ×2 (14:00→23:22)
[2018-07-19] MEDS: CA ACETATE 667 MG CAP PO SCH (17:00)
[2018-07-19] MEDS: FUROSEMIDE 40 MG TABLET PO SCH (17:00)
[2018-07-19] MEDS: EPOETIN ALFA 10,000 UNIT/ML VIAL IV SCH (17:46)
--- NOTE | 2018-07-19 17:58 | P.PN ---
Subjective Date of Service: 07/19/18 Chief Complaint: fluid overload Review of Systems 10-point ROS is otherwise unremarkable Physical Examination - Vital Signs Temperature: 97.8 F Blood Pressure: 135/69 Pulse: 85 Respirations: 20 Pulse Ox (%): 92 - Physical Exam General: In no apparent distress, Other (Lethargic ) HEENT: Atraumatic, PERRLA, EOMI Neck: Supple, JVD not distended Respiratory: Normal air movement, Crackles/rales, Inspiratory wheezes Cardiovascular: Regular rate/rhythm, Normal S1 S2 Gastrointestinal: Normal bowel sounds, No tenderness Musculoskeletal: No tenderness Integumentary: No rashes Neurological: Normal speech, Normal tone, Normal affect Lymphatics: No axilla or inguinal lymphadenopathy - Studies Laboratory Data (last 24 hrs) 07/18/18 15:50: PT 14.9 H, INR 1.27 07/18/18 15:50: WBC 4.5, Hgb 9.7 L, Hct 30.5 L, Plt Count 215 07/18/18 15:50: Sodium 138, Potassium 3.9, BUN 18, Creatinine 3.58 H, Glucose 131 H, Magnesium 2.0, Total Bilirubin 0.3, AST 25, ALT 49, Alkaline Phosphatase 107 Microbiology Data (last 24 hrs): 07/18/18 18:36 Nasopharnyx Influenza Type A Antigen Screen - Final 07/18/18 18:36 Nasopharnyx Influenza Type B Antigen Screen - Final Medications List Reviewed: Yes Assessment And Plan - Current Problems (Diagnosis) (1) Acute respiratory distress Current Visit: Yes Status: Acute Plan: Acute respiratory Distress 2.2 to Volume Overload and Hypercapnic -BIPAP for now -IV lasix and Dialysis for Volume overload -wean off BIPAP as needed (2) Fluid overload Current Visit: Yes Status: Acute Plan: Fluid overload most likely secondary to CHF exacerbation versus end-stage renal disease -BNP elevated at this time -nephrology consulted. Awaiting recommendations at this time -will dialyze today for volume overload -IV Lasix for right now Qualifiers: Hypervolemia type: other Qualified Code(s): E87.79 - Other fluid overload (3) CHF (congestive heart failure) Onset Date: 05/11/18 Current Visit: No Status: Chronic Plan: CHF exacerbation -IV Lasix b.i.d. -echocardiogram with a right-sided heart failure Qualifiers: Heart failure type: right-sided Heart failure chronicity: acute on chronic Qualified Code(s): I50.813 - Acute on chronic right heart failure (4) End stage renal disease Onset Date: 05/11/18 Current Visit: No Status: Chronic Plan: End-stage renal disease on hemodialysis -will dialyze today. -nephrology consulted. Awaiting recommendations at this time - Plan Patient pending clinical improvement at this time. Discharge Plan: Home Plan to discharge in: Greater than 2 days - Code Status/Comfort Care Code Status Assessed: Yes Critical Care: No
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
[2018-07-19] MEDS: PREGABALIN 50 MG CAP PO SCH (23:21)
[2018-07-19] MEDS: GALANTAMINE 4 MG TAB PO SCH (23:22)
[2018-07-19] MEDS: APIXABAN 5 MG TABLET PO SCH (23:22)
[2018-07-19] MEDS: ATORVASTATIN 10 MG TAB PO SCH (23:22)
[2018-07-20] MEDS: LEVOTHYROXINE SOD 0.025 MG TAB PO SCH (06:44)
[2018-07-20] MEDS: HYDRALAZINE HCL 25 MG TABLET PO SCH ×4 (09:00→23:10)
[2018-07-20] MEDS ORDERED: LISINOPRIL 20 MG TAB PO SCH (09:00)
[2018-07-20] MEDS ORDERED: SPIRONOLACTONE 25 MG TABLET PO SCH (09:00)
[2018-07-20] MEDS ORDERED: AMLODIPINE 10 MG TAB PO SCH (09:00)
[2018-07-20] MEDS: APIXABAN 5 MG TABLET PO SCH ×2 (09:33→23:08)
[2018-07-20] MEDS: MIDODRINE HCL 5 MG TABLET PO SCH (09:33)
[2018-07-20] MEDS: DULOXETINE 20 MG CAP PO SCH (09:33)
[2018-07-20] MEDS: METOPROLOL XL 50 MG TAB PO SCH (09:33)
[2018-07-20] MEDS: AMIODARONE HCL 200 MG TAB PO SCH (09:33)
[2018-07-20] MEDS: PREGABALIN 50 MG CAP PO SCH ×2 (09:33→23:08)
[2018-07-20] MEDS: ALLOPURINOL 100 MG TAB PO SCH (09:33)
[2018-07-20] MEDS: FAMOTIDINE 20 MG TAB PO SCH (09:34)
[2018-07-20] MEDS: CA ACETATE 667 MG CAP PO SCH ×3 (09:34→17:23)
[2018-07-20] MEDS: FUROSEMIDE 40 MG TABLET PO SCH ×2 (09:34→17:53)
[2018-07-20] MEDS: GALANTAMINE 4 MG TAB PO SCH ×2 (09:34→23:08)
[2018-07-20] MEDS ORDERED: FUROSEMIDE 40 MG/4 ML VIAL IV ONE (10:13)
[2018-07-20 10:45] LABS: Blood O2 Saturation 93.8 % (92-98.5)
[2018-07-20 10:46] LABS: Arterial Blood Carboxyhemoglob 0.8 % (0-1.5); Blood Gas Oxyhemoglobin 92.9 % (94-97); Blood Gas RHB 8.3 %
[2018-07-20 11:00] LABS: Absolute Lymphocytes (CBC) 0.9 K/uL (0.7-4.9); Absolute Monocytes 0.4 K/uL (0.1-1.3); Absolute Neutrophil 2.3 K/uL (1.8-8.0); Basophils % 0.9 % (0-1.3); Eosinophils % 1.7 % (0-4.4); Hematocrit 27.2 % (36.0-45.0); Lymphocytes % 24.4 % (15.3-44.8); MPV 9.5 fL (7.6-11.3); Monocytes % 11.6 % (3.3-12.3)
[2018-07-20 11:16] LABS: Albumin 2.9 g/dL (3.4-5.0); Bilirubin Total 0.3 mg/dL (0.2-1.0); Potassium 3.9 mmol/L (3.5-5.1); Protein, Total 6.2 g/dL (6.4-8.2)
--- NOTE | 2018-07-20 11:35 | RAD REPORT ---
EXAM DESCRIPTION: CT - Head Brain Wo Cont - 07/20/2018 11:19 am CLINICAL HISTORY: Alteration of awareness/confusion COMPARISON: 2011 TECHNIQUE: Computed axial tomography of the head was obtained. IV contrast was not requested. All CT scans are performed using dose optimization technique as appropriate and may include automated exposure control or mA/KV adjustment according to patient size. FINDINGS: An intracranial bleed is not seen . The ventricles are normal in caliber. No extra-axial fluid collection is noted. Mild low-density areas within periventricular, deep and sub cortical white matter likely represent ischemic changes secondary to small vessel disease. Fluid within the sinuses/ mastoids is not seen. IMPRESSION: No acute intracranial abnormality is seen. If patient's symptoms persist MRI of the bra in would be recommended.
--- NOTE | 2018-07-20 11:44 | RAD REPORT ---
EXAM DESCRIPTION: RAD - Chest Single View - 07/20/2018 11:35 am CLINICAL HISTORY: Pulmonary edema, shortness of breath, CHF history COMPARISON: July 19 TECHNIQUE: AP portable chest image was obtained 1127 hours . FINDINGS: Pacemaker and dialysis catheter remain in place. Chronic interstitial lung disease is pres ent. The interstitial infiltrate or edema pattern has improved. Left lung base is not substantially d ifferent. Right lung base shows less pleural and parenchymal opacification. Pleural fluid remains on the right. Heart size is stable. No pneumothorax. IMPRESSION: Partial resolution of a CHF/volume overload pattern. Patient shows most improvement in t he right lung base.
--- NOTE | 2018-07-20 15:02 | P.PN ---
Subjective Date of Service: 07/20/18 Chief Complaint: fluid overload Pt seen and examined at bedside. Chart Reviewed. Case DW with nephrology. Pt this AM has been lethargic and decreased responsiveness. Pt was placed on BIPAP and ABG's were done. After being on BIPAP for 3 hrs pt did well. No other c/o overnight. Review of Systems 10-point ROS is otherwise unremarkable Physical Examination - Vital Signs Temperature: 97.7 F Blood Pressure: 116/58 Pulse: 69 Respirations: 16 Pulse Ox (%): 100 - Physical Exam General: Mild distress, Confused, Other (Lethargic ) HEENT: Atraumatic, PERRLA, EOMI Neck: Supple, JVD not distended Respiratory: Normal air movement, Expiratory wheezes, Inspiratory wheezes Cardiovascular: Regular rate/rhythm, Normal S1 S2 Gastrointestinal: Normal bowel sounds, No tenderness Musculoskeletal: No tenderness Integumentary: No rashes Neurological: Normal tone, Normal affect Lymphatics: No axilla or inguinal lymphadenopathy - Studies Medications List Reviewed: Yes Assessment And Plan - Current Problems (Diagnosis) (1) Acute respiratory distress Current Visit: Yes Status: Acute Plan: Acute respiratory Distress 2.2 to Volume Overload and Hypercapnic -BIPAP for now. Will wean to NC as tolerated. -IV lasix and Dialysis for Volume overload -Removed 3L of fluid yesterday -ABG with mild Respiratory acidosis today (2) Fluid overload Current Visit: Yes Status: Acute Plan: Fluid overload most likely secondary to CHF exacerbation versus end-stage renal disease -BNP elevated at this time -nephrology consulted. Recommendations appreciated at this time -will dialyze today for volume overload -IV Lasix 40mg BID for now Qualifiers: Hypervolemia type: other Qualified Code(s): E87.79 - Other fluid overload (3) CHF (congestive heart failure) Onset Date: 05/11/18 Current Visit: No Status: Chronic Plan: CHF exacerbation -IV Lasix 40mg b.i.d and BIPAP at this time. -echocardiogram with a right-sided heart failure -S/p Pacemaker placement as well Qualifiers: Heart failure type: right-sided Heart failure chronicity: acute on chronic Qualified Code(s): I50.813 - Acute on chronic right heart failure (4) End stage renal disease Onset Date: 05/11/18 Current Visit: No Status: Chronic Plan: End-stage renal disease on hemodialysis -Pt received Dialysis yesterday. Removed 3L. Scheduled for dialysis today as well -nephrology consulted. Recommendations appreciated at this time - Plan Patient pending clinical improvement at this time. Will continue with BIPAP and wean as tolerated. Awaiting lab to r.o Sepsis and urine Drug Screen for Drug abuse. Discharge Plan: Other Plan to discharge in: 48 Hours - Code Status/Comfort Care Code Status Assessed: Yes Critical Care: No
[2018-07-20] MEDS: EPOETIN ALFA 10,000 UNIT/ML VIAL IV SCH (20:43)
--- NOTE | 2018-07-20 22:17 | P.PN ---
Date of Service: 07/20/18 Vital Signs Temp Pulse Resp BP Pulse Ox 99.7 F 81 17 136/65 98 07/20/18 20:00 07/20/18 20:00 07/20/18 20:00 07/20/18 20:00 07/20/18 20:00 Medications Acetaminophen (Tylenol -Extra Strength) 500 mg PO Q6H PRN PRN Reason: [id number] Stop: 08/17/18 20:54 Last Admin: 07/19/18 01:41 Dose: 500 mg Acetaminophen (Tylenol -Tablet) 650 mg PO Q6HP PRN PRN Reason: PAIN Stop: 08/18/18 12:49 Allopurinol (Zyloprim) 100 mg PO DAILY [facility] Stop: 08/19/18 09:01 Last Admin: 07/20/18 09:33 Dose: 100 mg Amiodarone HCl (Cordarone Tab) 200 mg PO DAILY [facility] Stop: 08/19/18 09:01 Last Admin: 07/20/18 09:33 Dose: 200 mg Apixaban (Eliquis) 5 mg PO BID [facility] Stop: 08/18/18 21:01 Last Admin: 07/20/18 09:33 Dose: 5 mg Atorvastatin Calcium (Lipitor) 10 mg PO BEDTIME [facility] Stop: 08/18/18 21:01 Last Admin: 07/19/18 23:22 Dose: 10 mg Benzonatate (Tessalon Perle) 100 mg PO Q8HP PRN PRN Reason: COUGH Stop: 08/18/18 12:49 Last Admin: 07/19/18 23:23 Dose: 100 mg Calcium Acetate (Phoslo) 667 mg PO TIDWM [facility] Stop: 08/18/18 17:01 Last Admin: 07/20/18 17:23 Dose: 667 mg Docusate Sodium (Colace Cap) 100 mg PO BID PRN PRN Reason: CONSTIPATION Stop: 08/18/18 12:49 Duloxetine HCl (Cymbalta Delayed Release Pellets) 20 mg PO DAILY [facility] Stop: 08/19/18 09:01 Last Admin: 07/20/18 09:33 Dose: 20 mg Epoetin Calin (Procrit) 10,000 unit IV EVERY HD [facility] Stop: 08/17/18 22:16 Last Admin: 07/20/18 20:43 Dose: 10,000 unit Famotidine (Pepcid) 20 mg PO DAILY [facility] Stop: 08/19/18 09:01 Last Admin: 07/20/18 09:34 Dose: 20 mg Furosemide (Lasix) 40 mg PO BIDL [facility] Stop: 08/18/18 17:01 Last Admin: 07/20/18 17:53 Dose: 40 mg Galantamine Hydrobromide (Razadyne) 4 mg PO BID [facility] Stop: 08/18/18 21:01 Last Admin: 07/20/18 09:34 Dose: 4 mg Heparin Sodium (Porcine) (Heparin 1,000 Units/Ml) 6,000 unit IV EVERY HD PRN PRN Reason: FLUSH AFTER EACH USE Stop: 08/17/18 22:11 Last Admin: 07/19/18 17:44 Dose: 6,000 unit Heparin Sodium (Porcine) (Heparin 1,000 Units/Ml) 2,000 unit IV EVERY HD [facility] Stop: 07/24/18 21:01 Last Admin: 07/20/18 20:46 Dose: 2,000 unit Hydralazine HCl (Apresoline) 50 mg PO TID [facility] Stop: 08/18/18 14:01 Last Admin: 07/20/18 14:42 Dose: 50 mg Albumin Human (Albumin 25%) 50 mls @ 100 mls/hr IV EVERY HD [facility] Stop: 08/17/18 23:01 Levothyroxine Sodium (Synthroid) 0.025 mg PO DAILYAC [facility] Stop: 08/19/18 06:31 Last Admin: 07/20/18 06:44 Dose: 0.025 mg Loperamide HCl (Imodium) 4 mg PO Q4HP PRN PRN Reason: DIARRHEA Stop: 08/18/18 12:49 Mannitol (Mannitol 12.5 Gm/50 Ml Vial) 12.5 gm IV EVERY HD PRN PRN Reason: BP support at hemodialysis Stop: 08/17/18 22:11 Metoprolol Succinate (Toprol Xl) 50 mg PO DAILY [facility] Stop: 08/19/18 09:01 Last Admin: 07/20/18 09:33 Dose: 50 mg Midodrine (Proamatine) 5 mg PO TuThSa@0900 [facility] Stop: 08/19/18 09:01 Last Admin: 07/20/18 09:33 Dose: 5 mg Ondansetron HCl (Zofran) 4 mg IV Q4H PRN PRN Reason: NAUSEA / VOMITING Stop: 08/17/18 20:54 Ondansetron HCl (Zofran) 4 mg PO Q8HP PRN PRN Reason: NAUSEA Polyethylene Glycol (Glycolax) 17 gm PO Q8HP PRN PRN Reason: CONSTIPATION Stop: 08/18/18 12:49 Pregabalin (Lyrica) 100 mg PO BID [facility] Stop: 08/18/18 21:01 Last Admin: 07/20/18 09:33 Dose: 100 mg Sodium Chloride (Normal Saline Flush) 10 ml IV BID [facility] Stop: 08/17/18 21:01 Last Admin: 07/20/18 09:35 Dose: 10 ml Lab Results (last 24 hrs) 07/20/18 10:50: Lactic Acid 1.3 07/20/18 10:50: Sodium 140, Potassium 3.9, Chloride 107, Carbon Dioxide 26, BUN 26 H, Creatinine 4.01 H, Estimated GFR 11 L, Glucose 212 H, Calcium 8.3 L, Magnesium 2.0, Total Bilirubin 0.3, AST 15, ALT 27, Alkaline Phosphatase 93, Serum Total Protein 6.2 L, Albumin 2.9 L, Globulin 3.3, Albumin/Globulin Ratio 0.9 L 07/20/18 10:50: WBC 3.7 L, RBC 2.60 L, Hgb 8.6 L, Hct 27.2 L, MCV 104.4 H, MCH 33.1, MCHC 31.7 L, RDW 19.0 H, Plt Count 208, MPV 9.5, Neutrophils % 61.4, Lymphocytes % 24.4, Monocytes % 11.6, Eosinophils % 1.7, Basophils % 0.9, Absolute Neutrophils 2.3, Absolute Lymphocytes 0.9, Absolute Monocytes 0.4, Absolute Eosinophils 0.1, Absolute Basophils 0.0 07/20/18 10:15: pH 7.31 L, pCO2 46.6 H, pO2 76.4, HCO3 22.6, Base Excess -2.7, Oxyhemoglobin 92.9 L, ABG O2 Sat (Measured) 93.8, ABG Carboxyhemoglobin 0.8, ABG Methemoglobin 0.2, Inspired O2 30.0 Microbiology Results 07/18/18 18:50 Blood - Blood Aerobic Blood Culture - Preliminary No growth in 24 hours. 07/18/18 18:50 Blood - Blood Anaerobic Blood Culture - Preliminary No growth in 24 hours. 07/18/18 17:50 Blood - Blood Aerobic Blood Culture - Preliminary No growth in 24 hours. 07/18/18 17:50 Blood - Blood Anaerobic Blood Culture - Preliminary No growth in 24 hours. 07/18/18 18:36 Nasopharnyx Influenza Type A Antigen Screen - Final 07/18/18 18:36 Nasopharnyx Influenza Type B Antigen Screen - Final Assessment/ Plan: Nephrology. Limited IH/ ROS due to Bipap therapy. CPS unstable requiring bipap therapy. No CP. No acute events overnight. Vitals, medications, blood work and imaging reviewed in the chart. NAD. MMM. Neck supple. Bibasilar rales. RRR. Soft Abd. No C/C. LE Edema 1+ . No rash. Awake. A/ ESRD on HD. Diastolic CHF, A/C. HTN. Anemia in CKD. PER/ Secondary HyperPTH. DM II with CKD. P/ Continue current POC and Medications. Arrange for acute HD today. Bipap prn. Titrate insulin as needed. Low sodium diet. No NSAIDs. AM labs. Daily weight. Case discussed with Dr. Avila
[2018-07-20] MEDS: ATORVASTATIN 10 MG TAB PO SCH (23:08)
[2018-07-21] MEDS: LEVOTHYROXINE SOD 0.025 MG TAB PO SCH (05:35)
[2018-07-21] MEDS: FUROSEMIDE 40 MG TABLET PO SCH ×2 (08:32→16:41)
[2018-07-21] MEDS: CA ACETATE 667 MG CAP PO SCH ×3 (08:33→16:40)
[2018-07-21] MEDS: AMIODARONE HCL 200 MG TAB PO SCH (08:33)
[2018-07-21] MEDS: HYDRALAZINE HCL 25 MG TABLET PO SCH ×3 (08:33→22:15)
[2018-07-21] MEDS: FAMOTIDINE 20 MG TAB PO SCH (08:34)
[2018-07-21] MEDS: PREGABALIN 50 MG CAP PO SCH ×2 (08:34→22:15)
[2018-07-21] MEDS: ALLOPURINOL 100 MG TAB PO SCH (08:34)
[2018-07-21] MEDS: APIXABAN 5 MG TABLET PO SCH ×2 (08:34→22:15)
[2018-07-21] MEDS: METOPROLOL XL 50 MG TAB PO SCH (08:34)
[2018-07-21] MEDS: GALANTAMINE 4 MG TAB PO SCH ×2 (08:34→22:15)
[2018-07-21] MEDS: DULOXETINE 20 MG CAP PO SCH (08:35)
--- NOTE | 2018-07-21 18:37 | P.PN ---
Subjective Date of Service: 07/21/18 Chief Complaint: fluid overload pt was lethargic on bipap family decided for hospice will have hd tomorrow and plan for dc Review of Systems 10-point ROS is otherwise unremarkable Physical Examination - Vital Signs Temperature: 97.5 F Blood Pressure: 123/57 Pulse: 65 Respirations: 22 Pulse Ox (%): 96 - Physical Exam HEENT: Atraumatic, Normocephalic Neck: Supple Respiratory: Normal air movement, Crackles/rales Cardiovascular: No edema, Regular rate/rhythm, Normal S1 S2 Gastrointestinal: Normal bowel sounds, Soft and benign, Non-distended, No tenderness Musculoskeletal: No swelling Integumentary: No rashes - Studies Medications List Reviewed: Yes Assessment And Plan - Current Problems (Diagnosis) (1) Acute respiratory distress Onset Date: 07/21/18 Current Visit: Yes Status: Acute (2) Dyspnea Onset Date: 07/21/18 Current Visit: Yes Status: Acute (3) Fluid overload Onset Date: 07/21/18 Current Visit: Yes Status: Acute Qualifiers: Hypervolemia type: other Qualified Code(s): E87.79 - Other fluid overload (4) Hypervolemia Onset Date: 07/21/18 Current Visit: Yes Status: Acute (5) PNA (pneumonia) Onset Date: 05/11/18 Current Visit: No Status: Resolved (6) End stage renal disease Onset Date: 05/11/18 Current Visit: Yes Status: Chronic - Plan Acute respiratory Distress 2.2 to Volume Overload -BIPAP for now. Will wean to NC as tolerated. -IV lasix and Dialysis for Volume overload -nephrology consulted diastolic CHF continue lasix bipapa prn s/p PPM ESRD : continue HD as scheduled Discharge Plan: [facility] Plan to discharge in: 24 Hours
--- NOTE | 2018-07-21 21:01 | P.PN ---
Date of Service: 07/21/18 Vital Signs Temp Pulse Resp BP Pulse Ox 97.5 F 65 22 H 123/57 L 96 07/21/18 18:39 07/21/18 18:39 07/21/18 18:39 07/21/18 18:39 07/21/18 18:39 Medications Acetaminophen (Tylenol -Extra Strength) 500 mg PO Q6H PRN PRN Reason: [id number] Stop: 08/17/18 20:54 Last Admin: 07/19/18 01:41 Dose: 500 mg Acetaminophen (Tylenol -Tablet) 650 mg PO Q6HP PRN PRN Reason: PAIN Stop: 08/18/18 12:49 Allopurinol (Zyloprim) 100 mg PO DAILY [facility] Stop: 08/19/18 09:01 Last Admin: 07/21/18 08:34 Dose: 100 mg Amiodarone HCl (Cordarone Tab) 200 mg PO DAILY [facility] Stop: 08/19/18 09:01 Last Admin: 07/21/18 08:33 Dose: 200 mg Apixaban (Eliquis) 5 mg PO BID [facility] Stop: 08/18/18 21:01 Last Admin: 07/21/18 08:34 Dose: 5 mg Atorvastatin Calcium (Lipitor) 10 mg PO BEDTIME [facility] Stop: 08/18/18 21:01 Last Admin: 07/20/18 23:08 Dose: 10 mg Benzonatate (Tessalon Perle) 100 mg PO Q8HP PRN PRN Reason: COUGH Stop: 08/18/18 12:49 Last Admin: 07/19/18 23:23 Dose: 100 mg Calcium Acetate (Phoslo) 667 mg PO TIDWM [facility] Stop: 08/18/18 17:01 Last Admin: 07/21/18 16:40 Dose: 667 mg Docusate Sodium (Colace Cap) 100 mg PO BID PRN PRN Reason: CONSTIPATION Stop: 08/18/18 12:49 Duloxetine HCl (Cymbalta Delayed Release Pellets) 20 mg PO DAILY [facility] Stop: 08/19/18 09:01 Last Admin: 07/21/18 08:35 Dose: 20 mg Epoetin Calin (Procrit) 10,000 unit IV EVERY HD [facility] Stop: 08/17/18 22:16 Last Admin: 07/20/18 20:43 Dose: 10,000 unit Famotidine (Pepcid) 20 mg PO DAILY [facility] Stop: 08/19/18 09:01 Last Admin: 07/21/18 08:34 Dose: 20 mg Furosemide (Lasix) 40 mg PO BIDL [facility] Stop: 08/18/18 17:01 Last Admin: 07/21/18 16:41 Dose: 40 mg Galantamine Hydrobromide (Razadyne) 4 mg PO BID [facility] Stop: 08/18/18 21:01 Last Admin: 07/21/18 08:34 Dose: 4 mg Heparin Sodium (Porcine) (Heparin 1,000 Units/Ml) 6,000 unit IV EVERY HD PRN PRN Reason: FLUSH AFTER EACH USE Stop: 08/17/18 22:11 Last Admin: 07/19/18 17:44 Dose: 6,000 unit Heparin Sodium (Porcine) (Heparin 1,000 Units/Ml) 2,000 unit IV EVERY HD [facility] Stop: 07/24/18 21:01 Last Admin: 07/20/18 20:46 Dose: 2,000 unit Hydralazine HCl (Apresoline) 50 mg PO TID [facility] Stop: 08/18/18 14:01 Last Admin: 07/21/18 14:06 Dose: 50 mg Albumin Human (Albumin 25%) 50 mls @ 100 mls/hr IV EVERY HD [facility] Stop: 08/17/18 23:01 Levothyroxine Sodium (Synthroid) 0.025 mg PO DAILYAC [facility] Stop: 08/19/18 06:31 Last Admin: 07/21/18 05:35 Dose: 0.025 mg Loperamide HCl (Imodium) 4 mg PO Q4HP PRN PRN Reason: DIARRHEA Stop: 08/18/18 12:49 Mannitol (Mannitol 12.5 Gm/50 Ml Vial) 12.5 gm IV EVERY HD PRN PRN Reason: BP support at hemodialysis Stop: 08/17/18 22:11 Metoprolol Succinate (Toprol Xl) 50 mg PO DAILY [facility] Stop: 08/19/18 09:01 Last Admin: 07/21/18 08:34 Dose: 50 mg Midodrine (Proamatine) 5 mg PO TuThSa@0900 [facility] Stop: 08/19/18 09:01 Last Admin: 07/20/18 09:33 Dose: 5 mg Ondansetron HCl (Zofran) 4 mg IV Q4H PRN PRN Reason: NAUSEA / VOMITING Stop: 08/17/18 20:54 Ondansetron HCl (Zofran) 4 mg PO Q8HP PRN PRN Reason: NAUSEA Polyethylene Glycol (Glycolax) 17 gm PO Q8HP PRN PRN Reason: CONSTIPATION Stop: 08/18/18 12:49 Pregabalin (Lyrica) 100 mg PO BID [facility] Stop: 08/18/18 21:01 Last Admin: 07/21/18 08:34 Dose: 100 mg Sodium Chloride (Normal Saline Flush) 10 ml IV BID [facility] Stop: 08/17/18 21:01 Last Admin: 07/21/18 08:35 Dose: 10 ml Microbiology Results 07/18/18 18:50 Blood - Blood Aerobic Blood Culture - Preliminary No growth in 24 hours. 07/18/18 18:50 Blood - Blood Anaerobic Blood Culture - Preliminary No growth in 24 hours. 07/18/18 17:50 Blood - Blood Aerobic Blood Culture - Preliminary No growth in 24 hours. 07/18/18 17:50 Blood - Blood Anaerobic Blood Culture - Preliminary No growth in 24 hours. 07/18/18 18:36 Nasopharnyx Influenza Type A Antigen Screen - Final 07/18/18 18:36 Nasopharnyx Influenza Type B Antigen Screen - Final Assessment/ Plan: Nephrology. Feeling much better today. +Cough +MOLINA CPS improved with SOB or CP. Required Bipap earlier in the day. No acute events overnight. Vitals, medications, blood work and imaging reviewed in the chart. NAD. MMM. Neck supple. Diminished right. RRR. Soft Abd. No C/C. LE Edema trace. No rash. Awake. A/ ESRD on HD. Diastolic CHF, A/C. HTN. Anemia in CKD. PER/ Secondary HyperPTH. DM II with CKD. P/ Continue current POC and Medications. Arrange for acute HD tomorrow with UF as tolerated. Bipap prn. Titrate insulin as needed. Low sodium diet. No NSAIDs. AM labs. Daily weight. Case discussed with Dr. Keane
[2018-07-21] MEDS: ATORVASTATIN 10 MG TAB PO SCH (22:15)
[2018-07-22] MEDS: LEVOTHYROXINE SOD 0.025 MG TAB PO SCH (05:57)
[2018-07-22 06:18] LABS: Absolute Lymphocytes (CBC) 1.4 K/uL (0.7-4.9); Absolute Monocytes 0.6 K/uL (0.1-1.3); Absolute Neutrophil 3.4 K/uL (1.8-8.0); Basophils % 0.6 % (0-1.3); Eosinophils % 2.2 % (0-4.4); Hematocrit 26.8 % (36.0-45.0); MPV 9.2 fL (7.6-11.3); Monocytes % 10.2 % (3.3-12.3); RBC Red Blood Cell Count 2.53 M/uL (3.86-4.86)
[2018-07-22 06:48] LABS: Potassium 4.7 mmol/L (3.5-5.1); Uric Acid 3.8 mg/dL (2.6-6.0)
[2018-07-22 07:04] VITALS: BMI 29.5
[2018-07-22] MEDS: GALANTAMINE 4 MG TAB PO SCH (08:42)
[2018-07-22] MEDS: MIDODRINE HCL 5 MG TABLET PO SCH (08:43)
[2018-07-22] MEDS: CA ACETATE 667 MG CAP PO SCH ×3 (08:44→17:00)
[2018-07-22] MEDS: DULOXETINE 20 MG CAP PO SCH (08:44)
[2018-07-22] MEDS: FUROSEMIDE 40 MG TABLET PO SCH ×2 (08:45→17:00)
[2018-07-22] MEDS: METOPROLOL XL 50 MG TAB PO SCH (08:45)
[2018-07-22] MEDS: APIXABAN 5 MG TABLET PO SCH (08:45)
[2018-07-22] MEDS: HYDRALAZINE HCL 25 MG TABLET PO SCH ×2 (08:46→14:00)
[2018-07-22] MEDS: AMIODARONE HCL 200 MG TAB PO SCH (08:46)
[2018-07-22] MEDS: ALLOPURINOL 100 MG TAB PO SCH (08:46)
[2018-07-22] MEDS: FAMOTIDINE 20 MG TAB PO SCH (08:47)
[2018-07-22] MEDS: PREGABALIN 50 MG CAP PO SCH (09:26)
[2018-07-22 10:25] VITALS: O2SAT 100
--- NOTE | 2018-07-22 12:30 | P.DS ---
Admission Date: 07/20/18 Discharge Date: 07/22/18 Disposition: TRANSFER TO [facility] Discharge Condition: FAIR Reason for Admission: fluid overload - Problems (1) Acute respiratory distress Onset Date: 07/21/18 Current Visit: Yes Status: Acute (2) Dyspnea Onset Date: 07/21/18 Current Visit: Yes Status: Acute (3) Fluid overload Onset Date: 07/21/18 Current Visit: Yes Status: Acute Qualifiers: Hypervolemia type: other Qualified Code(s): E87.79 - Other fluid overload (4) Hypervolemia Onset Date: 07/21/18 Current Visit: Yes Status: Acute (5) End stage renal disease Onset Date: 05/11/18 Current Visit: Yes Status: Chronic Brief History of Present Illness: see hospital course Hospital Course: patient is a 78-year-old female who came into the hospital with difficulty breathing. Admitted for fluid overload due to end-stage renal disease and diastolic CHF Patient's family decided DNI/DNR and 9 and [facility] On the day of discharge patient is feeling better and was sitting comfortable in the bed, denied any problems of breathing, she will have hemodialysis today, [facility] with [facility] setup p.r.n. at the facility Patient was started on doxycycline 100 mg b.i.d. for UTI Acute respiratory Distress 2.2 to Volume Overload -BIPAP for now. Will wean to NC as tolerated. -IV lasix and Dialysis for Volume overload -nephrology consulted diastolic CHF continue lasix bipapa prn s/p PPM ESRD : continue HD as scheduled Discharge instructions Diet renal Activity as tolerated Follow-up with PCP for continuation of care Follow-up with Nephrology Dr. meliza rausch and hemodialysis as scheduled Discharge medications Doxycycline 100 mg b.i.d. for 3 days Allopurinol 100 mg sourav endocrine/100 Aliquis 5 mg b.i.d. Amiodarone 200 mg daily Lipitor 10 mg q.h.s. Cymbalta 20 mg daily Pepcid 20 mg daily Lasix 40 mg b.i.d. Hydralazine and 50 mg t.i.d. Levothyroxine 9025 mg p.o. daily Metoprolol 50 mg p.o. daily Midodrine 5 mg p.o. daily lyrica 100 mg bid Vital Signs/Physical Exam: Temp Pulse Resp BP Pulse Ox 99.3 F 70 20 119/76 100 07/22/18 08:00 07/22/18 08:45 07/22/18 08:00 07/22/18 08:45 07/22/18 08:00 Laboratory Data at Discharge: WBC 5.5 K/uL (4.3-10.9) D 07/22/18 05:47 Hgb 8.6 g/dL (12.0-15.0) L 07/22/18 05:47 Hct 26.8 % (36.0-45.0) L 07/22/18 05:47 Plt Count 242 K/uL (152-406) 07/22/18 05:47 PT 14.9 SECONDS (9.5-12.5) H 07/18/18 15:50 INR 1.27 07/18/18 15:50 Sodium 136 mmol/L (136-145) 07/22/18 05:47 Potassium 4.7 mmol/L (3.5-5.1) 07/22/18 05:47 BUN 43 mg/dL (7-18) H 07/22/18 05:47 Creatinine 5.84 mg/dL (0.55-1.3) H* D 07/22/18 05:47 Glucose 142 mg/dL (74-106) H 07/22/18 05:47 Uric Acid 3.8 mg/dL (2.6-6.0) 07/22/18 05:47 Phosphorus 4.0 mg/dL (2.5-4.9) 07/22/18 05:47 Magnesium 2.0 mg/dL (1.8-2.4) 07/20/18 10:50 Total Bilirubin 0.3 mg/dL (0.2-1.0) 07/20/18 10:50 AST 15 U/L (15-37) 07/20/18 10:50 ALT 27 U/L (12-78) 07/20/18 10:50 Alkaline Phosphatase 93 U/L (45-117) 07/20/18 10:50 Home Medications: Acetaminophen [Tylenol] 650 mg PO Q6HP PRN 05/11/18 Allopurinol [Zyloprim*] 100 mg PO DAILY 05/11/18 Amiodarone HCl [Cordarone*] 200 mg PO DAILY 05/11/18 Apixaban [Eliquis] 5 mg PO BID 05/11/18 Atorvastatin Calcium [Lipitor*] 10 mg PO BEDTIME 05/11/18 Calcium Acetate [Phoslo*] 1 cap PO TIDWM 05/11/18 Docusate [Colace Cap*] 100 mg PO BID PRN 05/11/18 Duloxetine HCl [Cymbalta] 20 mg PO DAILY 05/11/18 Famotidine 20 mg PO DAILY 05/11/18 Furosemide [Lasix] 40 mg PO BID 05/11/18 Galantamine HBr [Razadyne] 4 mg PO BID 05/11/18 Hydralazine HCl [Apresoline] 50 mg PO TID 05/11/18 Levothyroxine Sodium 25 mcg PO DAILY 05/11/18 Metoprolol Succinate 50 mg PO DAILY 05/11/18 Midodrine HCl [Proamatine*] 5 mg PO T,TH,S 05/11/18 Ondansetron HCl [Zofran] 4 mg PO Q8HP PRN 05/11/18 Polyethylene Glycol 3350 [Miralax] 17 gm PO Q8HP PRN 05/11/18 Pregabalin [Lyrica] 100 mg PO BID 05/11/18 Benzonatate [Tessalon Perle*] 100 mg PO Q8HP PRN 06/22/18 Epoetin [Procrit*] 10,000 unit IV EVERY HD vial 07/22/18 Mannitol 25% [Mannitol*] 12.5 gm IV EVERY HD PRN vial 07/22/18 Patient Discharge Instructions: f/up with PCP for continuation of care. f/u[ with nephrology DR Canales Diet: Renal Activity: Ad victor m Followup: Usman Canales DO [ACTIVE - CAN ADMIT] -
[2018-07-22] MEDS ORDERED: AZITHROMYCIN 1 GM PACKET PO ONE (13:44)
[2018-07-22] MEDS ORDERED: AZITHROMYCIN 250 MG TAB PO ONE (14:07)
--- NOTE | 2018-07-22 14:07 | P.PN ---
Date of Service: 07/22/18 seen/examined. daughter by bedside. patient is alert and feels better. only complaint is cough with some sputum. breathing is stabilized and improved. has been using bipap at night and oxygen as needed...says she has those available at [facility]. advised about compliance with dialysis. she cut her treatment short last treatment. vs stable. lungs decreased bs at [facility] regular abd soft ext +1 edema a/p: volume overload much improved. esrd on dialysis. counseled on compliance with dialysis. ? start of bronchitis with cough/some sputum. patient says she tolerates azithromycin (has allergies to several abx). give 500mg azithromycin today and 250mg daily for 4 more days. d/c paper work has been done by pcp. patient dose look stable clinically. salt restriction and fluid restriction and fall precautions counseled. compliance with dialysis reviewed. discussed plan with patient's rn and with freelance patternmaker. ok to d/c after dialysis from nephrology point of view if clinically stable.
[2018-07-22] MEDS: EPOETIN ALFA 10,000 UNIT/ML VIAL IV SCH (17:50)
[2018-07-22 19:32] VITALS: BP 113/62; TEMP 98.3
[2018-07-22] MEDS ORDERED: DOXYCYCLINE 100 MG CAP PO SCH (21:00)
[2018-07-25 20:50] LABS: HBsAG Nonreactive (Nonreactive)
== END 2018-07-22 21:00 | disposition hospice, inpatient (51) | DRG 640 ==
LOC: ER 16:57 → ERHOLD 21:17 → 4TH 21:43 → OBSVTOIN 07-20 17:43
PROVIDERS: ADMIT Hospitalist
PROC: 5A09357 Assistance with Respiratory Ventilation, Less than 24 Consecutive Hours, Continuous Positive Airway Pressure (ICD-10-PCS; principal; 2018-07-19)
PROC: 5A1D70Z Performance of Urinary Filtration, Intermittent, Less than 6 Hours Per Day (ICD-10-PCS; 2018-07-19)
PROC: 5A1D70Z Performance of Urinary Filtration, Intermittent, Less than 6 Hours Per Day (ICD-10-PCS; 2018-07-20)
PROC: 5A1D70Z Performance of Urinary Filtration, Intermittent, Less than 6 Hours Per Day (ICD-10-PCS; 2018-07-22)
DX: E87.70 Fluid overload, unspecified (principal); N18.6 End stage renal disease; J18.9 Pneumonia, unspecified organism; I50.33 Acute on chronic diastolic (congestive) heart failure; I12.0 Hypertensive chronic kidney disease with stage 5 chronic kidney disease or end stage renal disease; J90 Pleural effusion, not elsewhere classified; N39.0 Urinary tract infection, site not specified; N25.81 Secondary hyperparathyroidism of renal origin; I13.2 Hypertensive heart and chronic kidney disease with heart failure and with stage 5 chronic kidney disease, or end stage renal disease; R06.03 Acute respiratory distress; E11.9 Type 2 diabetes mellitus without complications; D63.1 Anemia in chronic kidney disease; I48.91 Unspecified atrial fibrillation; J44.9 Chronic obstructive pulmonary disease, unspecified; E11.22 Type 2 diabetes mellitus with diabetic chronic kidney disease; E78.5 Hyperlipidemia, unspecified; E03.9 Hypothyroidism, unspecified; Z99.2 Dependence on renal dialysis; Z95.0 Presence of cardiac pacemaker; I25.2 Old myocardial infarction; Z87.891 Personal history of nicotine dependence
CPT/HCPCS: 36415; 70450; 71045; 80048; 80053; 80076; 81003; 82805; 82962; 83605; 83735; 83880; 84100; 84145; 84484; 84550; 85025; 85610; 85652; 86317; 86706; 87040; 87340; 87804; 90935; 93005; 94660; 94760; 96374; 99285; G0378; J1644; J1940; J2150; P9047; Q4081

== ENCOUNTER 2018-12-25 13:45 | Emergency (ER) | payer OTHER ==
--- NOTE | 2018-12-25 14:43 | ER ---
Nurse's Notes [facility] Name: Renée Souza Age: 78 yrs Sex: Female : 1940 Arrival Date: 12/25/2018 Time: 13:49 Bed 28 Private MD: Diagnosis: Fall due to bumping against object;Traumatic subdural hemorrhage without loss of consciousness;Dementia in other diseases classified elsewhere;Type 2 diabetes mellitus;Anemia, unspecified;End stage renal disease;Pleural effusion in conditions classified elsewhere Presentation: 12/25 13:51 Presenting complaint: EMS states: pt was on wheelchair when she fell forward and hit ca1 face. [facility] says it was a witnessed fall and denies LOC. Pt is on Eliquis. Pt has Dementia but is Oriented x 3. Transition of care: patient was received from another setting of care (long-term care facility), M[facility]ed With [facility]. Onset of symptoms was December 25, 2018. Risk Assessment: Do you want to hurt yourself or someone else? Patient reports no desire to harm self or others. Initial Sepsis Screen: Does the patient meet any 2 criteria? No. Patient's initial sepsis screen is negative. Does the patient have a suspected source of infection? No. Patient's initial sepsis screen is negative. Care prior to arrival: None. 13:51 Method Of Arrival: EMS: [facility] ca1 13:51 Acuity: YUNIER 3 ca1 13:51 Mechanism of Injury: Fall out of chair fall from sitting. Trauma event details: Injury ca1 occurred in the [facility], Injury occurred: in an institution. Injury occurred: December 25, 2018 Injury occurred at: 13:20. Triage Assessment: 14:02 General: Appears in no apparent distress. comfortable, Behavior is calm, cooperative, ca1 appropriate for age. Pain: Complains of pain in face Pain currently is 10 out of 10 on a pain scale. Neuro: Level of Consciousness is awake, alert, obeys commands, Oriented to person, place, time, situation. Trauma Activation: Alert Physician: ED Physician; Name: ; Notified At: ; Arrived At: Physician: General Surgeon; Name: ; Notified At: ; Arrived At: Physician: Radiology; Name: ; Notified At: ; Arrived At: Physician: Respiratory; Name: ; Notified At: ; Arrived At: Physician: Lab; Name: ; Notified At: ; Arrived At: Historical: - Allergies: 14:02 Aspirin; ca1 14:02 Codeine; ca1 14:02 HYDROCODONE; ca1 14:02 Keflex; ca1 14:02 Levaquin; ca1 14:02 PENICILLINS; ca1 14:02 Morphine; ca1 - PMHx: 14:02 Anemia; Atrial Fib; CHF; COPD; Depression; Diabetes - NIDDM; Dialysis-T//TUE; ca1 DYSPHAGIA; ESRD; Hyperlipidemia; Hypertension; Hypothyroidism; Myocardial infarction; Peripheral venous insufficiency; pleural effusion; Pneumonia; VASCULAR DEMENTIA; - PSHx: 14:02 cardiac pacemaker; ca1 - Immunization history:: Adult Immunizations up to date. - Social history:: Smoking status: Patient/guardian denies using tobacco, the patient reports quitting approximately 10 years ago. - Immunization history: Last tetanus immunization: unknown. - Ebola Screening: : Patient negative for fever greater than or equal to 101.5 degrees Fahrenheit, and additional compatible Ebola Virus Disease symptoms Patient denies exposure to infectious person Patient denies travel to an Ebola-affected area in the 21 days before illness onset No symptoms or risks identified at this time. - Family history:: not pertinent. Screenin:00 Abuse screen: Denies threats or abuse. Denies injuries from another. Nutritional ca1 screening: No deficits noted. Tuberculosis screening: No symptoms or risk factors identified. Fall Risk Fall in past 12 months (25 points). Secondary diagnosis (15 points) dementia, IV access (20 points). Ambulatory Aid- Crutches/Cane/Walker (15 pts). Mental Status- Overestimates/Forgets Limitations (15 pts.). Total Umanzor Fall Scale indicates High Risk Score (45 or more points). Fall prevention measures have been instituted. Side Rails Up X 2 Frequent Obs/Assessments Occuring As available patient and family educated on Fall Prevention Program and Strategies. Primary Survey: 13:51 NO uncontrolled hemorrhage observed. A: The patient is alert. A: Airway: patent. ca1 Breathing/Chest: Respiratory pattern: regular, Respiratory effort: spontaneous, unlabored, Breath sounds: clear, bilaterally. Chest inspection: symmetrical rise and fall of the chest. Circulation: Cardiac rhythm: Heart tones present. Pulses: palpable bilateral radial, brachial, femoral, popliteal, posterior tibial and and dorsalis pedis arteries.. Skin color: pink, Skin temperature: warm, dry. Disability Alert. Exposure/Environment: All clothing and personal items were removed. Forensic evidence collection is not deemed to be indicated at this time. Items placed in patient belonging bag. There is no evidence of uncontrolled external bleeding. Obvious injury(ies) are noted at this time: bruise on forehead. Abrasions on forehead, nose and R cheek A warming method has been applied: A warm blanket has been provided to the patient. 15:00 Reassessment Breathing/Chest Respiratory pattern Regular Respiratory effort Spontaneous ca1 Unlabored Breath sounds Clear Chest inspection Symmetrical Circulation Heart rhythm Paced Heart tones Present Pulses Palpable Color [place] Temperature Warm Dry Disability Alert. Assessment: 14:00 General: Appears in no apparent distress. comfortable, Behavior is calm, cooperative, ca1 appropriate for age. Pain: Complains of pain in face Pain does not radiate. Pain currently is 10 out of 10 on a pain scale. Neuro: Level of Consciousness is awake, alert, obeys commands, Oriented to person, place, time, situation, Hairspring Assembler are equal bilaterally Moves all extremities. Speech is normal, Facial symmetry appears normal, Pupils are PERRLA. Cardiovascular: Heart tones S1 S2 present Capillary refill < 3 seconds Patient's skin is warm and dry. Respiratory: Airway is patent Respiratory effort is even, unlabored, Breath sounds are clear bilaterally. GI: Abdomen is round non-distended, Bowel sounds present X 4 quads. Abd is soft and non tender X 4 quads. : No deficits noted. No signs and/or symptoms were reported regarding the genitourinary system. EENT: No deficits noted. No signs and/or symptoms were reported regarding the EENT system. Derm: Skin is intact, is fragile, is thin, Skin is pink, warm \T\ dry. Musculoskeletal: Circulation, motion, and sensation intact. Capillary refill < 3 seconds, Range of motion:. 15:29 Reassessment: Patient appears in no apparent distress at this time. Patient and/or ca1 family updated on plan of care and expected duration. Pain level reassessed. Patient is alert, oriented x 3, equal unlabored respirations, skin warm/dry/pink. 16:43 Reassessment: Patient appears in no apparent distress at this time. Patient and/or ca1 family updated on plan of care and expected duration. Pain level reassessed. Patient is alert, oriented x 3, equal unlabored respirations, skin warm/dry/pink. 17:24 Reassessment: Patient appears in no apparent distress at this time. Patient and/or ca1 family updated on plan of care and expected duration. Pain level reassessed. Patient is alert, oriented x 3, equal unlabored respirations, skin warm/dry/pink. FFP received from Blood bank. Expiration date on slip is not the same as the bag. Called blood bank and talked to Max. Instructed to send blood back. Notified CN. 18:00 Reassessment: Patient appears in no apparent distress at this time. Patient is alert, ca1 oriented x 3, equal unlabored respirations, skin warm/dry/pink. 1st Bag of FFP transfused. Monitored pt at bedside. Pt tolerated well. See pt's chart for Transfusion Record and Flow Sheet. 18:00 Reassessment: Called Report to Daniela Johnston RN at [facility]. ca1 18:40 Reassessment: Patient appears in no apparent distress at this time. Patient and/or ca1 family updated on plan of care and expected duration. Pain level reassessed. Patient is alert, oriented x 3, equal unlabored respirations, skin warm/dry/pink. Family at bedside. Updated on what was done and plan of care. 19:00 Reassessment: Patient appears in no apparent distress at this time. Patient is alert, ca1 oriented x 3, equal unlabored respirations, skin warm/dry/pink. 2nd Bag of FFP transfused. Monitored pt at bedside. Pt tolerated well. See pt's chart for Transfusion Record and Flow Sheet. 19:20 Reassessment: Patient appears in no apparent distress at this time. Patient is alert, ca1 oriented x 3, equal unlabored respirations, skin warm/dry/pink. Hand off care given to [facility]. FFP infusing well. 15-minute observation done after initiation of 2nd bag of FFP. Vital Signs: 14:02 BP 122 / 58; Pulse 67; Resp 16; Temp 98.2(O); Pulse Ox 95% on R/A; Weight 79.83 kg (R); ca1 Height 5 ft. 5 in. (165.10 cm) (R); Pain 10/10; 14:20 Pulse Ox 89% on R/A; ca1 14:30 BP 128 / 70; Pulse 81; Resp 17 S; Pulse Ox 98% on 2 lpm NC; ca1 15:00 BP 127 / 66; Pulse 84; Resp 17 S; Pulse Ox 98% on 2 lpm NC; ca1 15:48 BP 140 / 78; Pulse 85; Resp 16 S; Pulse Ox 99% on 2 lpm NC; ca1 16:30 BP 138 / 79; Pulse 92; Resp 17 S; Pulse Ox 100% on R/A; ca1 17:38 BP 130 / 69; Pulse 87; Resp 15 S; Temp 98.2(TE); Pulse Ox 100% on 2 lpm NC; ca1 18:40 BP 107 / 66; Pulse 80; Resp 15 S; Temp 98(TE); Pulse Ox 100% on 2 lpm NC; ca1 19:04 BP 100 / 56; Pulse 81; Resp 16 S; Temp 98.1(TE); Pulse Ox 100% on 2 lpm NC; ca1 19:21 BP 123 / 76; Pulse 86; Resp 13 S; Temp 98.3(TE); Pulse Ox 100% on 2 lpm NC; ca1 14:02 Body Mass Index 29.29 (79.83 kg, 165.10 cm) ca1 17:38 See Blood Transfusion Flow Sheet for V/S monitoring during transfusion ca1 19:04 See Blood Transfusion Flow Sheet for V/S monitoring during 2nd bag of FFP transfusion ca1 [place] Coma Score: 13:51 Eye Response: spontaneous(4). Verbal Response: oriented(5). Motor Response: obeys ca1 commands(6). Total: 15. Trauma Score (Adult): 13:51 Eye Response: spontaneous(1); Verbal Response: oriented(1); Motor Response: obeys ca1 commands(2); Systolic BP: > 89 mm Hg(4); Respiratory Rate: 10 to 29 per min(4); Tan Score: 15; Trauma Score: 12 ED Course: 13:49 Patient arrived in ED. as 13:55 Thermoregulation: warm blanket given to patient. ca1 13:56 Triage completed. ca1 14:00 Patient has correct armband on for positive identification. Placed in gown. Bed in low ca1 position. Call light in reach. Side rails up X2. manager infrastructure on. Pulse ox on. NIBP on. Warm blanket given. 14:01 Ryan Rodriguez MD is Attending Physician. farida 14:02 Arm band placed on right wrist. ca1 14:04 Montserrat Sterling, RN is Primary Nurse. ca1 14:20 Oxygen administration via nasal cannula \T\ 2L/min Response to oxygen therapy: symptoms ca1 improved. 14:25 No provider procedures requiring assistance completed. Inserted saline lock: 20 gauge ca1 in right antecubital area, using aseptic technique. Blood collected. 14:34 CT completed. Patient tolerated procedure well. Patient moved back from CT. ls3 14:36 CT Head C Spine In Process Unspecified. EDMS 14:47 CT Facial Bones W/O Con In Process Unspecified. EDMS 14:57 X-ray completed. Portable x-ray completed in exam room. Patient tolerated procedure mh1 well. 14:57 EKG done, by voip network technician. reviewed by Ryan Rodriguez MD. sm3 15:00 XRAY Chest (1 view) In Process Unspecified. EDMS 15:00 Inserted saline lock: in left antecubital area, using aseptic technique. ca1 15:00 Inserted saline lock: 22 gauge in left antecubital area, using aseptic technique. ca1 19:00 Patient transferred, IV remains in place. ca1 Administered Medications: 14:27 Drug: NS 0.9% 1000 ml Route: IV; Rate: 125 ml/hr; Site: right antecubital; ca1 19:20 Follow up: IV Status: Infusion continued upon transfer ca1 14:27 Drug: Neosporin Ointment 1 application Route: Topical; Site: face; ca1 15:05 Drug: Pepcid 20 mg Route: IVP; Site: right antecubital; ca1 16:00 Follow up: Response: No adverse reaction ca1 15:10 Drug: Vitamin K1 10 mg Route: Sub-Q; Site: left lower abdomen; ca1 16:00 Follow up: Response: No adverse reaction ca1 17:30 Drug: Zofran 4 mg Route: IVP; Site: left antecubital; ca1 18:30 Follow up: Response: No adverse reaction ca1 17:35 Drug: fentaNYL (PF) 25 mcg Route: IVP; Site: left antecubital; ca1 18:30 Follow up: Response: No adverse reaction; Pain is decreased ca1 Intake: 19:00 N/A ca1 Outcome: 14:42 ER care complete, transfer ordered by . farida 19:00 Transferred by ground EMS to [facility], Transfer form completed. ca1 X-rays sent w/ patient. 19:00 Condition: stable ca1 19:00 Instructed on the need for admit. 19:00 Patient's length of stay was extended due to receiving facility on divert. ca1 19:28 Patient left the ED. ca1 Signatures: Dispatcher [employer] EDRyan Hernández MD MD cha Harvey, Martha 1 Jessica Ferrer Shakira 3 Elvia Loving 3 Montserrat Sterling RN RN ca1 Corrections: (The following items were deleted from the chart) 16:52 16:50 Mechanism of Injury: Fall out of chair fall from sitting ca1 ca1 16:52 16:50 Trauma event details: Injury occurred in the [facility], Injury occurred: ca1 in an institution. Injury occurred: December 25, 2018 Injury occurred at: 13:20 ca1
[2018-12-25 14:45] LABS: Absolute Lymphocytes (CBC) 0.8 K/uL (0.7-4.9); Basophils % 0.7 % (0-1.3); Hematocrit 27.8 % (36.0-45.0); Lymphocytes % 15.7 % (15.3-44.8); MPV 11.1 fL (7.6-11.3); RBC Red Blood Cell Count 2.54 M/uL (3.86-4.86)
[2018-12-25] MEDS ORDERED: BACI/NEOMYCIN/POLY OINT 15GM TOP ONE (14:45)
[2018-12-25] MEDS ORDERED: NA CHLORIDE 0.9% 1,000 ML ONE (14:45)
--- NOTE | 2018-12-25 14:45 | EDPHYS ---
Physician Documentation [facility] Name: Renée Souza Age: 78 yrs Sex: Female : 1940 Arrival Date: 12/25/2018 Time: 13:49 Bed 28 Private MD: FATOUMATA Physician Ryan Rodriguez HPI: 12/25 14:23 This 78 yrs old Female presents to ER via EMS with complaints of fall out of farida wheelchair. 14:23 The patient or guardian reports abrasion, pain, swelling, tenderness. The complaints farida affect the forehead, right cheek, nose and mouth. Context of injury: The problem was sustained at a detention or assisted living facility. Onset: The symptoms/episode began/occurred just prior to arrival. Associated signs and symptoms: Loss of consciousness: This patient did not experience any loss of consciousness. fall out of wheelchair. The patient has experienced near-syncope, almost passed out. Historical: - Allergies: 14:02 Aspirin; ca1 14:02 Codeine; ca1 14:02 HYDROCODONE; ca1 14:02 Keflex; ca1 14:02 Levaquin; ca1 14:02 PENICILLINS; ca1 14:02 Morphine; ca1 - PMHx: 14:02 Anemia; Atrial Fib; CHF; COPD; Depression; Diabetes - NIDDM; Dialysis-T//TUE; ca1 DYSPHAGIA; ESRD; Hyperlipidemia; Hypertension; Hypothyroidism; Myocardial infarction; Peripheral venous insufficiency; pleural effusion; Pneumonia; VASCULAR DEMENTIA; - PSHx: 14:02 cardiac pacemaker; ca1 - Immunization history:: Adult Immunizations up to date. - Social history:: Smoking status: Patient/guardian denies using tobacco, the patient reports quitting approximately 10 years ago. - Immunization history: Last tetanus immunization: unknown. - Ebola Screening: : Patient negative for fever greater than or equal to 101.5 degrees Fahrenheit, and additional compatible Ebola Virus Disease symptoms Patient denies exposure to infectious person Patient denies travel to an Ebola-affected area in the 21 days before illness onset No symptoms or risks identified at this time. - Family history:: not pertinent. ROS: 14:23 Constitutional: Negative for fever, chills, and weight loss, Eyes: Negative for injury, farida pain, redness, and discharge, Neck: Negative for injury, pain, and swelling, Cardiovascular: Negative for chest pain, palpitations, and edema, Respiratory: Negative for shortness of breath, cough, wheezing, and pleuritic chest pain, Abdomen/GI: Negative for abdominal pain, nausea, vomiting, diarrhea, and constipation, Back: Negative for injury and pain, : Negative for injury, bleeding, discharge, and swelling, MS/Extremity: Negative for injury and deformity, Neuro: Negative for headache, weakness, numbness, tingling, and seizure, Psych: Negative for depression, anxiety, suicide ideation, homicidal ideation, and hallucinations, Allergy/Immunology: Negative for hives, rash, and allergies, Endocrine: Negative for neck swelling, polydipsia, polyuria, polyphagia, and marked weight changes, Hematologic/Lymphatic: Negative for swollen nodes, abnormal bleeding, and unusual bruising. 14:23 ENT: Positive for dental pain, injury or acute deformity, abrasion, contusion. 14:23 Skin: Positive for abrasion(s), swelling, of the face. Exam: 14:23 Constitutional: This is a well developed, well nourished patient who is awake, alert, farida and in no acute distress. Eyes: Pupils equal round and reactive to light, extra-ocular motions intact. Lids and lashes normal. Conjunctiva and sclera are non-icteric and not injected. Cornea within normal limits. Periorbital areas with no swelling, redness, or edema. ENT: Nares patent. No nasal discharge, no septal abnormalities noted. Tympanic membranes are normal and external auditory canals are clear. Oropharynx with no redness, swelling, or masses, exudates, or evidence of obstruction, uvula midline. Mucous membranes moist. Neck: Trachea midline, no thyromegaly or masses palpated, and no cervical lymphadenopathy. Supple, full range of motion without nuchal rigidity, or vertebral point tenderness. No Meningismus. Chest/axilla: Normal chest wall appearance and motion. Nontender with no deformity. No lesions are appreciated. Cardiovascular: Regular rate and rhythm with a normal S1 and S2. No gallops, murmurs, or rubs. Normal PMI, no JVD. No pulse deficits. Respiratory: Lungs have equal breath sounds bilaterally, clear to auscultation and percussion. No rales, rhonchi or wheezes noted. No increased work of breathing, no retractions or nasal flaring. Abdomen/GI: Soft, non-tender, with normal bowel sounds. No distension or tympany. No guarding or rebound. No evidence of tenderness throughout. Back: No spinal tenderness. No costovertebral tenderness. Full range of motion. Female : Normal external genitalia. Skin: Warm, dry with normal turgor. Normal color with no rashes, no lesions, and no evidence of cellulitis. MS/ Extremity: Pulses equal, no cyanosis. Neurovascular intact. Full, normal range of motion. Neuro: Awake and alert, GCS 15, oriented to person, place, time, and situation. Cranial nerves II-XII grossly intact. Motor strength 5/5 in all extremities. Sensory grossly intact. Cerebellar exam normal. Normal gait. 14:23 Head/face: Noted is abrasion(s), contusion, swelling, tenderness, that is mild, of the forehead, right cheek, nose, left cheek, mouth and chin. Vital Signs: 14:02 BP 122 / 58; Pulse 67; Resp 16; Temp 98.2(O); Pulse Ox 95% on R/A; Weight 79.83 kg (R); ca1 Height 5 ft. 5 in. (165.10 cm) (R); Pain 10/10; 14:20 Pulse Ox 89% on R/A; ca1 14:30 BP 128 / 70; Pulse 81; Resp 17 S; Pulse Ox 98% on 2 lpm NC; ca1 15:00 BP 127 / 66; Pulse 84; Resp 17 S; Pulse Ox 98% on 2 lpm NC; ca1 15:48 BP 140 / 78; Pulse 85; Resp 16 S; Pulse Ox 99% on 2 lpm NC; ca1 16:30 BP 138 / 79; Pulse 92; Resp 17 S; Pulse Ox 100% on R/A; ca1 17:38 BP 130 / 69; Pulse 87; Resp 15 S; Temp 98.2(TE); Pulse Ox 100% on 2 lpm NC; ca1 18:40 BP 107 / 66; Pulse 80; Resp 15 S; Temp 98(TE); Pulse Ox 100% on 2 lpm NC; ca1 19:04 BP 100 / 56; Pulse 81; Resp 16 S; Temp 98.1(TE); Pulse Ox 100% on 2 lpm NC; ca1 19:21 BP 123 / 76; Pulse 86; Resp 13 S; Temp 98.3(TE); Pulse Ox 100% on 2 lpm NC; ca1 14:02 Body Mass Index 29.29 (79.83 kg, 165.10 cm) ca1 17:38 See Blood Transfusion Flow Sheet for V/S monitoring during transfusion ca1 19:04 See Blood Transfusion Flow Sheet for V/S monitoring during 2nd bag of FFP transfusion ca1 Tan Coma Score: 13:51 Eye Response: spontaneous(4). Verbal Response: oriented(5). Motor Response: obeys ca1 commands(6). Total: 15. Trauma Score (Adult): 13:51 Eye Response: spontaneous(1); Verbal Response: oriented(1); Motor Response: obeys ca1 commands(2); Systolic BP: > 89 mm Hg(4); Respiratory Rate: 10 to 29 per min(4); Tan Score: 15; Trauma Score: 12 MDM: 14:01 Patient medically screened. [facility] 14:26 Data reviewed: vital signs, nurses notes, lab test result(s), EKG, radiologic studies, [facility] CT scan, plain films. 12/25 14:03 Order name: Glucose, Ancillary Testing; Complete Time: 14:38 [facility] 12/25 14:23 Order name: Basic Metabolic Panel; Complete Time: 15:21 [facility] 12/25 14:23 Order name: CBC with Diff [facility] 12/25 14:23 Order name: LFT's; Complete Time: 15:21 [facility] 12/25 14:23 Order name: Magnesium; Complete Time: 15:21 [facility] 12/25 14:23 Order name: NT PRO-BNP; Complete Time: 15:21 [facility] 12/25 14:23 Order name: PT-INR; Complete Time: 15:21 [facility] 12/25 14:23 Order name: Troponin (emerg Dept Use Only); Complete Time: 15:21 [facility] 12/25 14:23 Order name: XRAY Chest (1 view); Complete Time: 15:21 [facility] 12/25 14:32 Order name: Type And Screen [facility] 12/25 14:57 Order name: Bb Add On bd 12/25 15:09 Order name: Fresh Frozen Plasma [facility] 12/25 15:30 Order name: CBC Smear Scan [facility] 12/25 14:23 Order name: EKG; Complete Time: 14:26 [facility] 12/25 14:23 Order name: Cardiac monitoring; Complete Time: 14:26 [facility] 12/25 14:23 Order name: EKG - Nurse/Tech; Complete Time: 15:14 [facility] 12/25 14:23 Order name: IV Saline Lock; Complete Time: 14:26 [facility] 12/25 14:23 Order name: Labs collected and sent; Complete Time: 14:27 [facility] 12/25 14:23 Order name: O2 Per Protocol; Complete Time: 14:26 [facility] 12/25 14:23 Order name: O2 Sat Monitoring; Complete Time: 14:27 [facility] 12/25 14:23 Order name: CT Head C Spine; Complete Time: 14:54 [facility] 12/25 14:23 Order name: CT Facial Bones W/O Con; Complete Time: 15:21 [facility] 12/25 14:23 Order name: Ice pack; Complete Time: 14: [facility] 12/25 14:52 Order name: Transfuse; Complete Time: 00:43 [facility] Administered Medications: 14:27 Drug: NS 0.9% 1000 ml Route: IV; Rate: 125 ml/hr; Site: right antecubital; ca1 19:20 Follow up: IV Status: Infusion continued upon transfer ca1 14:27 Drug: Neosporin Ointment 1 application Route: Topical; Site: face; ca1 15:05 Drug: Pepcid 20 mg Route: IVP; Site: right antecubital; ca1 16:00 Follow up: Response: No adverse reaction ca1 15:10 Drug: Vitamin K1 10 mg Route: Sub-Q; Site: left lower abdomen; ca1 16:00 Follow up: Response: No adverse reaction ca1 17:30 Drug: Zofran 4 mg Route: IVP; Site: left antecubital; ca1 18:30 Follow up: Response: No adverse reaction ca1 17:35 Drug: fentaNYL (PF) 25 mcg Route: IVP; Site: left antecubital; ca1 18:30 Follow up: Response: No adverse reaction; Pain is decreased ca1 Disposition: 12/25/18 14:42 Transfer ordered to [facility]. Diagnosis are Fall due to bumping against object, Traumatic subdural hemorrhage without loss of consciousness, Dementia in other diseases classified elsewhere, Type 2 diabetes mellitus, Anemia, unspecified, End stage renal disease, Pleural effusion in conditions classified elsewhere. - Reason for transfer: Higher level of care. - Accepting physician is to [facility]. - Condition is Fair. - Problem is new. - Symptoms are unchanged. Signatures: Dispatcher [employer] Ryan Suárez MD MD cha Acob, Cheryl, RN RN ca1 Corrections: (The following items were deleted from the chart) 15:23 14:42 12/25/2018 14:42 Transfer ordered to [facility]. Diagnosis is farida Fall due to bumping against object; Traumatic subdural hemorrhage without loss of consciousness; Dementia in other diseases classified elsewhere; Type 2 diabetes mellitus. Reason for transfer: Higher level of care. Accepting physician is to [facility]. Condition is Fair. Problem is new. Symptoms are unchanged. farida 19:28 15:23 12/25/2018 14:42 Transfer ordered to [facility]. Diagnosis is ca1 Fall due to bumping against object; Traumatic subdural hemorrhage without loss of consciousness; Dementia in other diseases classified elsewhere; Type 2 diabetes mellitus; Anemia, unspecified; End stage renal disease; Pleural effusion in conditions classified elsewhere. Reason for transfer: Higher level of care. Accepting physician is to [facility]. Condition is Fair. Problem is new. Symptoms are unchanged. farida
--- NOTE | 2018-12-25 14:45 | RAD REPORT ---
EXAM DESCRIPTION: CT - Head C Spine Mpr Wo Con - 12/25/2018 2:34 pm CLINICAL HISTORY: Head and neck injury status post fall. Head and neck pain COMPARISON: July [address] TECHNIQUE: Computed axial tomography of the head and cervical spine was obtained. Sagittal and coronal reconstruction was performed. All CT scans are performed using dose optimization technique as appropriate and may include automated exposure control or mA/KV adjustment according to patient size. FINDINGS: Small to moderate subdural hematoma along the right temporal convexity. Maximum width 6 mi llimeters. No shift of midline structures No fracture seen. Mild to moderate periventricular, subcortical and deep white matter ischemic change s secondary to small vessel disease. A cervical fracture is not visualized. Mild anterior subluxation C4 on C5 without prevertebral soft t issue swelling. Spondylosis C5-6 results in marked narrowing of the right neural foramina Small to moderate right pleural effusion IMPRESSION: Small to moderate subdural hematoma along the right temporal convexity without shift of midline structures A cervical fracture is not visualized. Mild anterior subluxation C4 on C5. Prevertebral soft tissue s welling. If the patient continues to have symptoms to suggest ligamentous/spinal cord pathology then MRI would be recommended Exam was discussed with Doctor Rodriguez emergency room 2:35 p.m. December 25, 2018
[2018-12-25 14:47] LABS: Protime INR 1.29
--- NOTE | 2018-12-25 14:52 | RAD REPORT ---
EXAM DESCRIPTION: CT - Facial Bones W/ Mpr - 12/25/2018 2:44 pm CLINICAL HISTORY: Facial injury status post fall COMPARISON: None TECHNIQUE: Computed axial tomography of the face was obtained. Coronal and sagittal reconstruction w as performed. All CT scans are performed using dose optimization technique as appropriate and may include automated exposure control or mA/KV adjustment according to patient size. FINDINGS: A fracture is not seen. A TMJ dislocation is not noted. The globes are intact. Fluid within the sinuses is not seen. A small lucency surrounding a left mandibular tooth likely representing an abscess IMPRESSION: Negative for a facial fracture.
[2018-12-25 15:05] LABS: ALT/SGPT 18 U/L (12-78); AST/SGOT 33 U/L (15-37); Albumin 3.2 g/dL (3.4-5.0); Alkaline Phosphatase 82 U/L (45-117); BUN Blood Urea Nitrogen 41 mg/dL (7-18); Bicarbonate 24 mmol/L (21-32); Bilirubin Direct < 0.1 mg/dL (0-0.2); Bilirubin Total 0.4 mg/dL (0.2-1.0); Glucose Level 145 mg/dL (74-106); Magnesium 2.6 mg/dL (1.8-2.4); Potassium 4.2 mmol/L (3.5-5.1); Protein, Total 6.7 g/dL (6.4-8.2); Sodium Level 138 mmol/L (136-145); Troponin (Emerg Dept Use Only) < 0.02 ng/mL (0.0-0.045)
--- NOTE | 2018-12-25 15:12 | RAD REPORT ---
EXAM DESCRIPTION: RAD - Chest Single View - 12/25/2018 2:58 pm CLINICAL HISTORY: COUGH Chest pain. COMPARISON: Chest Single View dated 07/20/2018; Chest Single View dated 07/19/2018; Chest Single View dated 07/18/2018; Chest Single View dated 06/26/2018 FINDINGS: Portable technique limits examination quality. Moderate opacification of the right lung base is noted likely a pleural effusion and atelectasis. The heart is moderately enlarged in size. Dual lead pacer device is present. Right-sided venous catheter has tip in the SVC.Displaced fracture is not identified although the study is limited by positioning and portable technique.
--- NOTE | 2018-12-25 15:14 | EKG ---
Test Date: 2018-12-25 Test Time: 14:47:10 Nitrate Operator: CAROLANN MEASUREMENT RESULTS: Intervals: Rate: 79 NC: QRSD: 98 QT: 390 QTc: 447 [place]: P: NC: QRS: 69 T: -68 INTERPRETIVE STATEMENTS: Demand pacemaker, interpretation is based on intrinsic rhythm Atrial fibrillation with premature ventricular or aberrantly conducted complexes Cannot rule out Anterior infarct, age undetermined ST & T wave abnormality, consider inferolateral ischemia or digitalis effect Abnormal ECG Compared to ECG 07/18/2018 17:09:45 Ventricular premature complex(es) now present ST (T wave) deviation now present Possible ischemia now present AV dual-paced complex(es) or rhythm no longer present Sinus rhythm no longer present Atrial premature complex(es) no longer present Myocardial infarct finding still present Electronically Signed On 12-25-18 15:15:07 CDT by Eric Barber
[2018-12-25 15:15] LABS: NT PRO-BNP 88327 pg/mL (<450)
[2018-12-25] MEDS ORDERED: VITAMIN K (ADULT) 10 MG/ML ONE (15:24)
[2018-12-25] MEDS ORDERED: FAMOTIDINE 20 MG/2 ML VIAL IV ONE (15:24)
[2018-12-25 15:28] LABS: Blood Morphology Comment NOTED (NOT SEEN); Platelet Estimate DECR; Urine White Blood Cell Casts OK
[2018-12-25 15:29] LABS: Anisocytosis 1+; Poikilocytosis 1+
[2018-12-25] MEDS ORDERED: NA CHLORIDE 0.9% 250 ML ONE ×2 (16:44→18:47)
[2018-12-25] MEDS ORDERED: ONDANSETRON 4 MG/2 ML VIAL ONE (18:39)
[2018-12-25] MEDS ORDERED: FENTANYL CITR 100 MCG/2 ML ONE (18:39)
[2018-12-25] MEDS ORDERED: POTASSIUM 25 MEQ EFFERV TAB ONE (19:09)
[2018-12-25 21:36] VITALS: TEMP 98.2
[2018-12-25 21:42] VITALS: BP 138/79; O2SAT 100
== END 2018-12-25 19:28 | disposition short-term general hospital (02) ==
LOC: ER 13:45
PROC: 30233K1 Transfusion of Nonautologous Frozen Plasma into Peripheral Vein, Percutaneous Approach (ICD-10-PCS; principal; 2018-12-25)
DX: S06.5X0A Traumatic subdural hemorrhage without loss of consciousness, initial encounter (principal); E11.22 Type 2 diabetes mellitus with diabetic chronic kidney disease; I13.2 Hypertensive heart and chronic kidney disease with heart failure and with stage 5 chronic kidney disease, or end stage renal disease; I50.9 Heart failure, unspecified; N18.6 End stage renal disease; D63.1 Anemia in chronic kidney disease; J91.8 Pleural effusion in other conditions classified elsewhere; W05.0XXA Fall from non-moving wheelchair, initial encounter; Y93.9 Activity, unspecified; Y92.129 Unspecified place in nursing home as the place of occurrence of the external cause; F03.90 Unspecified dementia, unspecified severity, without behavioral disturbance, psychotic disturbance, mood disturbance, and anxiety; Z95.0 Presence of cardiac pacemaker; Z88.0 Allergy status to penicillin; Z88.1 Allergy status to other antibiotic agents; Z88.3 Allergy status to other anti-infective agents; Z88.5 Allergy status to narcotic agent; Z88.6 Allergy status to analgesic agent; Z99.2 Dependence on renal dialysis
CPT/HCPCS: 93005; 85025; 80048; 36415; 86900; 83735; 86850; 85610; 86901; 82962; 80076; 84484; 83880; 70450; 72125; 70486; 76377; 71045; 96375; 96372; 96374; 99285; 36430; J3430; J3010; P9059 ×2; J7030; J2405